=== PATIENT | male | born 1965 | race Hispanic/Latino ===

== ENCOUNTER 2017-03-16 19:49 | Emergency (ER) | payer SELFPAY ==
[2017-03-16 19:59] VITALS: BMI 23.0
[2017-03-16 20:00] VITALS: RESP 18; TEMP 101.5
[2017-03-16 21:37] LABS: BASO # 0.02 K/mm3 (0.0-2.0); BASO % 0.2 % (0.0-3.0); EOS # 0.3 (0.0-0.7); GRAN # 9.83 (1.4-6.5); GRAN % 78.7 % (50.0-68.0); HEMATOCRIT 37.4 % (42.0-52.0); LYMPH # 1.7 (1.2-3.4); LYMPH % 13.2 % (22.0-35.0); MEAN CELL VOLUME 91.4 fl (80.0-105.0); MEAN CORPUSCULAR HEMOGLOBIN 30.1 pg (25.0-35.0); MEAN CORPUSCULAR HGB CONC 32.9 g/dl (31.0-37.0); MEAN PLATELET VOLUME 9.7 fl (7.0-11.0); MONO # 0.7 (0.1-0.6); MONO % 5.9 % (1.0-6.0); RED CELL DISTRIBUTION WIDTH 14.5 % (11.5-14.5); VENOUS BLOOD GAS BASE EXCESS 6.1 mmol/L (0.0-2.0); VENOUS BLOOD PH 7.34 (7.32-7.43); WHITE BLOOD COUNT 12.5 10^3/ul (4.5-11.0)
[2017-03-16 21:47] LABS: ALB/GLOB RATIO 1.5 (1.1-1.8); ALKALINE PHOSPHATASE 77 U/L (38-126); ALT/SGPT 229 U/L (7-56); AST/SGOT 115 U/L (17-59); BILIRUBIN,TOTAL 0.7 mg/dL (0.2-1.3); BLOOD UREA NITROGEN 15 mg/dL (7-21); CALCIUM 9.3 mg/dL (8.4-10.5); CARBON DIOXIDE 33 mmol/L (21-33); CHLORIDE 101 mmol/L (95-110); GFR AFRICAN-AMERICAN > 60; GLUCOSE,RANDOM 91 mg/dL (70-110); MAGNESIUM 1.9 mg/dL (1.7-2.2); PHOSPHOROUS 3.4 mg/dL (2.5-4.5); POTASSIUM 4.8 mmol/L (3.6-5.0); SODIUM 138 mmol/L (132-148); TOTAL PROTEIN 6.5 g/dL (5.8-8.3)
[2017-03-16 22:00] LABS: TROPONIN I < 0.01 ng/mL
[2017-03-16 22:07] LABS: INR 1.2 (0.93-1.08); PARTIAL THROMBOPLASTIN TIME 31.1 Seconds (25.1-36.5)
--- NOTE | 2017-03-16 22:08 | ED PDOC ---
Arrival/HPI - General Chief Complaint: Chest Pain Time Seen by Provider: 03/16/17 20:09 Historian: Patient - History of Present Illness Narrative History of Present Illness (Text): 03/16/17 22:09 A 51 year old male, whose past medical history includes GERD, presents to the emergency department complaining of feeling hot, feverish and lightheaded an hour ago prior to arrival. Also reports burning sensation of lower sternal chest and notes feels similar to prior episode of GERD. Notes nausea and mild headache. Reports fever upon arrival to the emergency department. Denies recent travels, cough, sore throat, shortness of breath, vomiting, diarrhea, urinary symptoms or any other complaints at this time. Time/Duration: 1 hour Symptom Onset: Sudden Symptom Course: Unchanged Activities at Onset: Rest Context: Home Past Medical History - Provider Review Nursing Documentation Reviewed: Yes - Cardiac Hx Cardiac Disorders: No Hx Hypertension: No - Pulmonary Hx Asthma: Yes Hx Tuberculosis: No - Neurological HX Cerebrovascular Accident: No Hx Seizures: No - Hematological/Oncological Hx Cancer: No - Genitourinary/Gynecological Hx Sexually Transmitted Diseases: No - Psychiatric Hx Anxiety: Yes Hx Substance Use: Yes - Anesthesia Hx Anesthesia: No Family/Social History - Physician Review Nursing Documentation Reviewed: Yes Family/Social History: No Known Family HX Smoking Status: Light Smoker < 10 Cigarettes Daily Hx Alcohol Use: No Hx Substance Use: Yes Substance used: Heroin Allergies/Home Meds Allergies/Adverse Reactions: Allergies No Known Allergies Allergy (Verified 03/16/17 19:59) Home Medications: Home Meds Medication Instructions Recorded Confirmed No Known Home Med 03/16/17 03/16/17 Review of Systems - Physician Review All systems were reviewed & negative as marked: Yes - Review of Systems Constitutional: Fevers, Other (lightheadedness) ENT: absent: Sore Throat Respiratory: absent: SOB, Cough Cardiovascular: Other (burning sensation of lower sternal chest) Gastrointestinal: Nausea. absent: Diarrhea, Vomiting Genitourinary Male: absent: Dysuria, Frequency, Hematuria Neurological: Headache (mild) Physical Exam Vital Signs Reviewed: Yes Vital Signs Temp Pulse Resp BP Pulse Ox 03/16/17 22:28 74 18 102/67 97 03/16/17 21:20 101.5 F H 03/16/17 20:00 101.5 F H 72 18 108/70 93 L Temperature: Febrile Blood Pressure: Normal Pulse: Regular Respiratory Rate: Normal Appearance: Positive for: Well-Appearing, Non-Toxic, Comfortable Pain Distress: Mild Mental Status: Positive for: Alert and Oriented X 3 - Systems Exam Head: Present: Atraumatic, Normocephalic Pupils: Present: PERRL Extroacular Muscles: Present: EOMI Conjunctiva: Present: Normal Mouth: Present: Dry Neck: Present: Normal Range of Motion Respiratory/Chest: Present: Rhonchi (scattered). No: Respiratory Distress, Accessory Muscle Use Cardiovascular: Present: Regular Rate and Rhythm, Normal S1, S2. No: Murmurs Abdomen: Present: Normal Bowel Sounds. No: Tenderness, Distention, Peritoneal Signs Back: Present: Normal Inspection Upper Extremity: Present: Normal Inspection. No: Cyanosis, Edema Lower Extremity: Present: Normal Inspection. No: Edema Neurological: Present: GCS=15, CN II-XII Intact, Speech Normal, Motor Func Grossly Intact, Normal Sensory Function, Normal Cerebellar Funct, Gait Normal, Memory Normal, Normal 2Pt Descrimination Skin: Present: Warm, Dry, Normal Color. No: Rashes Psychiatric: Present: Alert, Oriented x 3, Normal Insight, Normal Concentration Medical Decision Making ED Course and Treatment: 03/16/17 22:05 Impression: A 51 year old male with fever, lightheadedness, nausea, headache and burning sensation of lower sternal chest. Of note, patient is noted to be febrile. Plan: -- EKG -- chest xray -- labs -- Urinalysis -- Tylenol -- Reassess and disposition Progress Notes: EKG: NSR at 98 bpm, (-) acute ST changes, as read by CHRYSTAL. CXR : NAD, as read by PA Labs : wbc 12.5, vbg lactate 0.9, trop (-), ua (-), LFTs is mildly elevated. Diagnostic results d/w the patient. On re-evaluation, patient is sitting up in bed comfortably in no acute distress, remains awake, alert and oriented x3, not toxic appearing, he is smiling and is ambulatory in the ER with a steady gait. Patient reports no headache, dizziness, chest pain or SOB at this time. Patient' s breathing is easy and unlabored, speaking in full sentences. On exam, lungs CTA, cardiac RRR, repeat neuro exam shows no focal findings. Patient states that he wishes to leave the ER AMA and is refusing any further treatment. Patient refuses further care, evaluation or treatment in the ER. Patient informed of the reasons for the following and planned treatment, which patient understands, however still refuses. Patient informed of the risk and benefits of treatment. Informed that the risk could include worsening of current conditions, undiagnosed conditions, disability or even . Patient understands the following risk and the benefits of treatment. Patient has the capacity to make decisions and still refuses treatment by RN, PA and ER MD. Patient encouraged to return to the ER at any time and to follow up with pmd. - Lab Interpretations Lab Results: 03/16/17 21:10 03/16/17 21:10 Lab Results 03/16/17 21:10: pO2 26 L, VBG pH 7.34, VBG pCO2 63.0 H, VBG HCO3 34.0 H, VBG Total CO2 35.9 H, VBG O2 Sat (Calc) 54.2, VBG Base Excess 6.1 H, VBG Potassium 4.5, Sodium 137.0, Chloride 103.0, Glucose 87, Lactate 0.9, FiO2 21.0, Venous Blood Potassium 4.5 03/16/17 21:10: Urine Color Yellow, Urine Appearance Clear, Urine pH 7.0, Ur Specific [place] 1.015, Urine Protein Negative, Urine Glucose (UA) Negative, Urine Ketones Negative, Urine Blood Negative, Urine Nitrate Negative, Urine Bilirubin Negative, Urine Urobilinogen 1.0 H, Ur Leukocyte Esterase Negative 03/16/17 21:10: PT 13.1 H, INR 1.20 H, APTT 31.1 03/16/17 21:10: Sodium 138, Chloride 101, Potassium 4.8, Carbon Dioxide 33, Anion Gap 9 L, BUN 15, Creatinine 0.8, Est GFR ( Amer) > 60, Est GFR (Non -Af Amer) > 60, Random Glucose 91, Calcium 9.3, Phosphorus 3.4, Magnesium 1.9, Total Bilirubin 0.7, AST 115 H D, ALT 229 H, Alkaline Phosphatase 77, Lactate Dehydrogenase 517, Total Creatine Kinase 152, Troponin I < 0.01, Total Protein 6.5, Albumin 3.9, Globulin 2.6, Albumin/Globulin Ratio 1.5 03/16/17 21:10: WBC 12.5 H, RBC 4.09, Hgb 12.3 L, Hct 37.4 L, MCV 91.4, MCH 30.1 , MCHC 32.9, RDW 14.5, Plt Count 164, MPV 9.7, Gran % 78.7 H, Lymph % (Auto) 13.2 L, [place] % (Auto) 5.9, Eos % (Auto) 2.0, Baso % (Auto) 0.2, Gran # 9.83 H, Lymph # 1.7, [place] # 0.7 H, Eos # 0.3, Baso # 0.02 I have reviewed the lab results: Yes - RAD Interpretation Radiology Orders: 03/16/17 20:10 CHEST TWO VIEWS (PA/LAT) [RAD] Stat - EKG Interpretation Interpreted by ED Physician: Yes Type: 12 lead EKG - Medication Orders Current Medication Orders: Discontinued Medications Acetaminophen (Tylenol 325mg Tab) 975 mg PO STAT STA Stop: 03/16/17 20:55 Last Admin: 03/16/17 21:20 Dose: 975 mg MAR Pain/Vitals Document 03/16/17 21:20 RD (Rec: 03/16/17 21:30 RD [id number]) Pain Reassessment Is This A Pain ReAssessment? No Sleep Is patient sleeping during reassessment? 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 - Scribe Statement The provider has reviewed the documentation as recorded by the Scribkg Duncan All medical record entries made by the Clara were at my direction and personally dictated by me. I have reviewed the chart and agree that the record accurately reflects my personal performance of the history, physical exam, medical decision making, and the department course for this patient. I have also personally directed, reviewed, and agree with the discharge instructions and disposition. Disposition/Present on Arrival - Present on Arrival Any Indicators Present on Arrival: No History of DVT/PE: No History of Uncontrolled Diabetes: No Urinary Catheter: No History of Decub. Ulcer: No History Surgical Site Infection Following: None - Disposition Have Diagnosis and Disposition been Completed?: Yes Diagnosis: Fever, Dizziness, Chest pain Disposition: AGAINST MEDICAL ADVICE Disposition Time: 22:15 Patient Plan: Other (Patient wishes to leave AMA) Condition: STABLE Discharge Instructions (ExitCare): Chest Pain (ED), Fever in Adults (ED), Dizziness (ED), Against Medical Advice (ED) Print Language: ALBANIAN Additional Instructions: Thank you for letting us take care of you today. You were treated for fever, dizziness, chest pain. The emergency medical care you received today was directed at your acute symptoms. If you were prescribed any medication, please fill it and take as directed. It may take several days for your symptoms to resolve. Return to the Emergency Department if you change your mind, your symptoms worsen, do not improve, or if you have any other problems. Please contact the clinic in 2 days for re-evaluation and follow up. Bring any paperwork you were given at discharge with you along with any medications you are taking to your follow up visit. Our treatment cannot replace ongoing medical care by a primary care provider (PCP) outside of the emergency department. Thank you for allowing the [facility] team to be part of your care today. Referrals: PCP,NO [Primary Care Provider] - Follow up with primary [facility] [place]] - Follow up with primary Forms: [employer] (Slovenian)
[2017-03-16 22:23] LABS: URINE BILIRUBIN NEGATIVE (NEGATIVE); URINE BLOOD NEGATIVE (NEGATIVE); URINE GLUCOSE (UA) NEGATIVE (NEGATIVE); URINE KETONE NEGATIVE (NEGATIVE); URINE LEUKOCYTE ESTERASE NEGATIVE Leu/uL (NEGATIVE); URINE PROTEIN NEGATIVE mg/dL (<30 mg/dL)
[2017-03-16 22:24] LABS: URINE APPEARANCE CLEAR (CLEAR); URINE COLOR YELLOW (YELLOW)
[2017-03-16 22:29] VITALS: BP 102/67; PULSE 74; O2SAT 97
--- NOTE | 2017-03-17 08:33 | RAD ---
HISTORY: pain COMPARISON: None available. TECHNIQUE: Chest PA and lateral FINDINGS: LUNGS: No focal consolidation. Please note that chest x-ray has limited sensitivity for the detection of pulmonary masses. PLEURA: No significant pleural effusion identified. No definite pneumothorax . CARDIOVASCULAR: Heart size appears within normal limits. OSSEOUS STRUCTURES: Degenerative changes of the spine. VISUALIZED UPPER ABDOMEN: Unremarkable. OTHER FINDINGS: None. IMPRESSION: No focal consolidation, significant pleural effusion, or definite pneumothorax identified.
--- NOTE | 2017-03-17 22:20 | CARD ---
APPROVED REPORT EKG Measurement Heart [id number] <Conclusion> Normal sinus rhythm Possible Left atrial enlargement Borderline ECG
== END 2017-03-16 22:28 | disposition left against medical advice (07) ==
LOC: ED 19:49
DX: R07.9 Chest pain, unspecified (principal); R50.9 Fever, unspecified; R42 Dizziness and giddiness; F17.210 Nicotine dependence, cigarettes, uncomplicated

== ENCOUNTER 2017-04-29 22:06 | Inpatient (IN) | payer MEDICAID, OTHER ==
[2017-04-29 22:07] VITALS: BMI 23.0
--- NOTE | 2017-04-29 22:47 | ED PDOC ---
Arrival/HPI <Kameron Spangler - Last Filed: 04/30/17 00:21> - General Historian: Patient - History of Present Illness Symptom Onset: Gradual Symptom Course: Unchanged Activities at Onset: Light Context: Home <Guerline Ross - Last Filed: 04/30/17 02:40> - General Chief Complaint: Med Refill Time Seen by Provider: 04/29/17 22:39 - History of Present Illness Narrative History of Present Illness (Text): 04/29/17 22:47 51 year old male smoker, whose past medical history includes IV heroin abuse and asthma, who presents to the Emergency department complaining of chest congestion. Patient states he has been experiencing cold-like symptoms with associated chest congestion, cough, and subjective fever for the past 6 days, for which he was seen at [facility] ER yesterday. Patient received nebulizer treatments and was prescribed Zithromax, which he has yet to fill because he could not afford it. Patient states he took Advil at home with no significant improvement. Patient also complaining of an area of erythema/swelling to the left antecubital fossa with associated discomfort for the past 3 days, worsening over the last 2 days. Patient notes he regularly injects heroin in the area and last injected heroin 2 days prior. Patient denies any chills, sore throat, abdominal pain, nausea, vomiting, back pain, neck pain, headache, dizziness, decreased range of motion in the extremity, weakness/numbness/tingling in the extremity, or any other complaints. (Guerline Ross) Past Medical History - Provider Review Nursing Documentation Reviewed: Yes - Infectious Disease Hx of Infectious Diseases: None - Cardiac Hx Hypertension: No - Pulmonary Hx Asthma: Yes - Neurological Hx Seizures: No - HEENT Hx HEENT Disorder: No - Renal Hx Renal Disorder: No - Endocrine/Metabolic Hx Endocrine Disorders: No - Hematological/Oncological Hx Cancer: No - Integumentary Hx Dermatological Disorder: No - Musculoskeletal/Rheumatological Hx Musculoskeletal Disorders: No - Gastrointestinal Hx Gastrointestinal Disorders: No - Genitourinary/Gynecological Hx Sexually Transmitted Diseases: No - Psychiatric Hx Anxiety: Yes Hx Depression: Yes Hx Substance Use: Yes - Anesthesia Hx Anesthesia: No <Guerline Ross - Last Filed: 04/30/17 02:40> Family/Social History - Physician Review Nursing Documentation Reviewed: Yes Family/Social History: Unknown Family HX Smoking Status: Light Smoker < 10 Cigarettes Daily Hx Alcohol Use: No Hx Substance Use: Yes Substance used: Heroin <Guerline Ross - Last Filed: 04/30/17 02:40> Allergies/Home Meds <Kameron Spangler - Last Filed: 04/30/17 00:21> <Guerline Ross - Last Filed: 04/30/17 02:40> Allergies/Adverse Reactions: Allergies No Known Allergies Allergy (Verified 04/29/17 22:36) Review of Systems - Physician Review All systems were reviewed & negative as marked: Yes - Review of Systems Constitutional: Fevers ENT: Sinus Congestion. absent: Sore Throat Respiratory: Cough, Other (+chest congestion). absent: SOB Cardiovascular: absent: Chest Pain, Palpitations Gastrointestinal: Normal. absent: Abdominal Pain, Nausea, Vomiting Genitourinary Male: absent: Dysuria, Frequency Musculoskeletal: Normal. absent: Back Pain, Neck Pain Skin: Cellulitis. absent: Pruritis Neurological: absent: Headache, Dizziness Psychiatric: Suicidal Ideation. absent: Anxiety, Depression <Guerline Ross - Last Filed: 04/30/17 02:40> Physical Exam Vital Signs Reviewed: Yes Temperature: Afebrile Blood Pressure: Normal Pulse: Regular Respiratory Rate: Normal Appearance: Positive for: Well-Appearing, Non-Toxic, Comfortable Pain Distress: None Mental Status: Positive for: Alert and Oriented X 3 - Systems Exam Head: Present: Atraumatic, Normocephalic Conjunctiva: Present: Normal Ears: Present: Normal, NORMAL TM, Normal Canal. No: Erythema, TM Bulging, Fluid , TM Perf Mouth: Present: Moist Mucous Membranes Pharnyx: Present: Normal. No: ERYTHEMA, EXUDATE, TONSILS ENLARGED, Peritonsilar Swelling, Uvular Deviation, Muffled/Hoarse Voice, Strider, Soft Palate/Uvular Edema Nose (External): Present: Atraumatic Nose (Internal): Present: Normal Inspection Neck: Present: Normal Range of Motion. No: Meningeal Signs, MIDLINE TENDERNESS , Paraspinal Tenderness Respiratory/Chest: Present: Clear to Auscultation, Good Air Exchange. No: Respiratory Distress, Accessory Muscle Use Cardiovascular: Present: Regular Rate and Rhythm, Normal S1, S2. No: Murmurs Abdomen: Present: Normal Bowel Sounds. No: Tenderness, Distention, Peritoneal Signs Back: Present: Normal Inspection Upper Extremity: Present: Normal ROM, NORMAL PULSES, Erythema (3 cm round, indurated area of erythema to left antecubital fossa with surrounding erythema, warmth, and tenderness), Neurovascularly Intact, Capillary Refill < 2s. No: Cyanosis, Edema Lower Extremity: Present: Normal Inspection. No: Edema Neurological: Present: GCS=15, Speech Normal Skin: Present: Warm, Dry, Normal Color. No: Rashes Psychiatric: Present: Alert, Oriented x 3 <Guerline Ross - Last Filed: 04/30/17 02:40> Vital Signs Temp Pulse Resp BP Pulse Ox 04/30/17 02:13 99.0 F 89 17 125/82 98 04/30/17 00:02 99.9 F H 04/29/17 22:35 90 21 120/71 97 Medical Decision Making <Kameron Spangler - Last Filed: 04/30/17 00:21> - EKG Interpretation Interpreted by ED Physician: Yes Type: 12 lead EKG <Guerline Ross - Last Filed: 04/30/17 02:40> ED Course and Treatment: 04/29/17 22:47 Impression: 51 year old male complaining of chest congestion, cough, and subjective fever x 6 days. Also complaining of area of redness/swelling to left antecubital fossa x3 days. Plan: -- EKG: nsr at 86b/m no st elevations, normal axis, normal intervals. -- CXR: ? RLL infiltrate -- CB: wbc; 11.7 -- CMP: wnl -- lactate; wnl cardiac iso -- Blood cultures pending -- Urinalysis: -- trop; wnl Prior Visits: Notes and results from previous visits were reviewed. On 04/28/2017, pt was seen at [facility] ER for productive cough with associated fever , nasal congestion, and shortness of breath. Received Duoneb treatments while in ER. Pt d/c home on Ventolin and Zithromax Progress Notes: vancomycin and zosyn IV pt with rll pna and cellulitis to left anticubital fossa. hx of IVDA. will admit to med/surg. case discussed with dr. hernandez in depth accepts admission. case discussed with resident. impression; cellulitis, PNA admit to med/surg (Guerline Ross) - Lab Interpretations Lab Results: 04/29/17 22:55 04/29/17 22:55 Lab Results 04/29/17 22:55: Urine Color Yellow, Urine Appearance Clear, Urine pH 6.5, Ur Specific [place] 1.020, Urine Protein Negative, Urine Glucose (UA) Negative, Urine Ketones Trace H, Urine Blood Negative, Urine Nitrate Negative, Urine Bilirubin Negative, Urine Urobilinogen 2.0 H, Ur Leukocyte Esterase Negative 04/29/17 22:55: WBC 11.7 H, RBC 3.76, Hgb 11.6 L, Hct 34.0 L, MCV 90.4, MCH 30.9 , MCHC 34.1, RDW 13.9, Plt Count 208, MPV 9.0, Gran % 69.6 H, Lymph % (Auto) 16.7 L, [place] % (Auto) 12.5 H, Eos % (Auto) 1.0 L, Baso % (Auto) 0.2, Gran # 8.13 H, Lymph # 2.0, [place] # 1.5 H, Eos # 0.1, Baso # 0.02 04/29/17 22:55: Sodium 138, Chloride 101, Potassium 3.9, Carbon Dioxide 28, Anion Gap 14, BUN 13, Creatinine 0.7 L, Est GFR ( Amer) > 60, Est GFR ( Non-Af Amer) > 60, Random Glucose 110, Calcium 9.3, Total Bilirubin 0.6, AST 38 , ALT 51, Alkaline Phosphatase 90, Lactate Dehydrogenase 396, Total Creatine Kinase 103, Troponin I < 0.01, Total Protein 7.5, Albumin 3.9, Globulin 3.7, Albumin/Globulin Ratio 1.0 L 04/29/17 22:55: pO2 35, VBG pH 7.42, VBG pCO2 46.0, VBG HCO3 29.8 H, VBG Total CO2 31.2 H, VBG O2 Sat (Calc) 81.7 H, VBG Base Excess 4.5 H, VBG Potassium 4.0, Sodium 138.0, Chloride 103.0, Glucose 111 H, Lactate 1.7, FiO2 21.0, Venous Blood Potassium 4.0 - RAD Interpretation Radiology Orders: 04/29/17 23:02 CHEST PORTABLE [RAD] Stat 04/30/17 00:11 ELBOW LEFT 3 VIEWS ROUTINE [RAD] Stat - Medication Orders Current Medication Orders: Acetaminophen (Tylenol 325mg Tab) 650 mg PO Q4H PRN PRN Reason: Fever >100.4 F Acetaminophen (Tylenol 325mg Tab) 650 mg PO Q4 PRN PRN Reason: Pain, Mild (1-3) Albuterol/Ipratropium (Duoneb 3 Mg/0.5 Mg (3 Ml) Ud) 3 ml IH [id number] PRN PRN Reason: Shortness of Breath Famotidine (Pepcid) 20 mg IVP DAILY ARCELIA Heparin Sodium (Porcine) (Heparin) 5,000 units SC Q8 ARCELIA PRN Reason: Protocol Sodium Chloride (Sodium Chloride 0.9%) 1,000 mls @ 100 mls/hr IV .Q10H ARCELIA Last Admin: 04/30/17 01:38 Dose: 100 mls/hr eMAR Start Stop Document 04/30/17 01:38 IT (Rec: 04/30/17 01:38 IT [id number]) Intravenous Solution Start Date 04/30/17 Start Time 01:38 Vancomycin HCl (Vancomycin 1gm) 1 gm in 250 mls @ 167 mls/hr IVPB Q12H ARCELIA PRN Reason: Protocol Piperacillin Sod/Tazobactam Sod (Zosyn 3.375 In Ns 100ml) 100 mls @ 200 mls/hr IVPB Q6 ARCELIA PRN Reason: Protocol Stop: 04/30/17 12:29 Nicotine (Nicoderm Cq) 1 patch TD DAILY PRN PRN Reason: URGE TO SMOKE Tramadol HCl (Ultram) 50 mg PO Q8H PRN PRN Reason: Pain, severe (8-10) Last Admin: 04/30/17 01:38 Dose: 50 mg MAR Pain Assessment Document 04/30/17 01:38 IT (Rec: 04/30/17 01:38 IT [id number]) Pain Reassessment Is this a pain reassessment? No Sleep Is patient sleeping during reassessment? No Presence of Pain Presence of Pain Yes Discontinued Medications Vancomycin HCl (Vancomycin 1gm) 1 gm in 250 mls @ 167 mls/hr IVPB STAT STA PRN Reason: Protocol Stop: 04/30/17 01:39 Last Admin: 04/30/17 01:11 Dose: 167 mls/hr eMAR Start Stop Document 04/30/17 01:11 IT (Rec: 04/30/17 01:11 IT [id number]) Intravenous Solution Start Date 04/30/17 Start Time 01:11 End Date 04/30/17 End time 02:40 Total Infusion Time 89 Piperacillin Sod/Tazobactam Sod (Zosyn 3.375 In Ns 100ml) 100 mls @ 200 mls/hr IVPB STAT STA PRN Reason: Protocol Stop: 04/30/17 00:39 Last Admin: 04/30/17 00:35 Dose: 200 mls/hr eMAR Start Stop Document 04/30/17 00:35 IT (Rec: 04/30/17 00:35 IT [id number]) Intravenous Solution Start Date 04/30/17 Start Time 00:35 End Date 04/30/17 - PA / RECREATION 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 MD/ has examined the patient and agrees with the treatment plan. <Kameron Spangler - Last Filed: 04/30/17 00:21> - Scribe Statement The provider has reviewed the documentation as recorded by the Scribe <Guerline Ross - Last Filed: 04/30/17 02:40> - Scribe Statement Irlanda Mahoney All medical record entries made by the Scribe were at my direction and personally dictated by me. I have reviewed the chart and agree that the record accurately reflects my personal performance of the history, physical exam, medical decision making, and the department course for this patient. I have also personally directed, reviewed, and agree with the discharge instructions and disposition. (Guerline Ross) Disposition/Present on Arrival <Kameron Spangler - Last Filed: 04/30/17 00:21> - Present on Arrival Any Indicators Present on Arrival: No History of DVT/PE: No History of Uncontrolled Diabetes: No Urinary Catheter: No History of Decub. Ulcer: No History Surgical Site Infection Following: None - Disposition Have Diagnosis and Disposition been Completed?: Yes Disposition Time: 23:25 Patient Plan: Admission <Guerline Ross - Last Filed: 04/30/17 02:40> - Disposition Diagnosis: Pneumonia, Cellulitis Disposition: HOSPITALIZED Patient Problems: Current Active Problems Problem Status Onset Cellulitis Acute Pneumonia Acute Condition: FAIR
[2017-04-29 23:28] LABS: VENOUS BLOOD GAS BASE EXCESS 4.5 mmol/L (0.0-2.0); VENOUS BLOOD PH 7.42 (7.32-7.43)
[2017-04-29 23:37] LABS: PH,URINE 6.5 (4.7-8.0); URINE BILIRUBIN NEGATIVE (NEGATIVE); URINE BLOOD NEGATIVE (NEGATIVE); URINE GLUCOSE (UA) NEGATIVE (NEGATIVE); URINE KETONE TRACE mg/dL (NEGATIVE); URINE LEUKOCYTE ESTERASE NEGATIVE Leu/uL (NEGATIVE); URINE PROTEIN NEGATIVE mg/dL (<30 mg/dL)
[2017-04-29 23:39] LABS: ALKALINE PHOSPHATASE 90 U/L (38-126); ALT/SGPT 51 U/L (7-56); AST/SGOT 38 U/L (17-59); BILIRUBIN,TOTAL 0.6 mg/dL (0.2-1.3); BLOOD UREA NITROGEN 13 mg/dL (7-21); CALCIUM 9.3 mg/dL (8.4-10.5); CARBON DIOXIDE 28 mmol/L (21-33); CHLORIDE 101 mmol/L (98-107); GFR AFRICAN-AMERICAN > 60; GLUCOSE,RANDOM 110 mg/dL (70-110); POTASSIUM 3.9 mmol/L (3.6-5.0); SODIUM 138 mmol/L (132-148); TOTAL PROTEIN 7.5 g/dL (5.8-8.3); URINE APPEARANCE CLEAR (CLEAR); URINE COLOR YELLOW (YELLOW)
[2017-04-29 23:50] LABS: TROPONIN I < 0.01 ng/mL
[2017-04-30 00:08] LABS: BASO # 0.02 K/mm3 (0.0-2.0); BASO % 0.2 % (0.0-3.0); EOS # 0.1 (0.0-0.7); GRAN # 8.13 (1.4-6.5); GRAN % 69.6 % (50.0-68.0); LYMPH % 16.7 % (22.0-35.0); MEAN CELL VOLUME 90.4 fl (80.0-105.0); MEAN CORPUSCULAR HEMOGLOBIN 30.9 pg (25.0-35.0); MEAN CORPUSCULAR HGB CONC 34.1 g/dl (31.0-37.0); MONO # 1.5 (0.1-0.6); MONO % 12.5 % (1.0-6.0); RED CELL DISTRIBUTION WIDTH 13.9 % (11.5-14.5); WHITE BLOOD COUNT 11.7 10^3/ul (4.5-11.0)
[2017-04-30] MEDS ORDERED: Piperacillin/Tazobact 3.375 gm 100 ML IVPB STA (00:10)
[2017-04-30] MEDS ORDERED: Vancomycin 1gm in NS 250ml 1 GM/250 ML BAG IVPB STA (00:10)
--- NOTE | 2017-04-30 00:39 | CP.PCM.HP ---
<Tai Mcdermott - Last Filed: 04/30/17 01:34> History of Present Illness - History of Present Illness History of Present Illness: CC: chest congestion, cough Subjective: HPI: Patient is a 51 year old male with past medical history of IV heroin abuse and asthma who presents to the emergency department for evaluation and treatment of chest congestion, cough with yellow sputum production, and subjective fevers which began 6 days ago. Patient denies specific provoking events. Denies recent travel and sick contacts. Patient was seen at [facility] ER where he was treated with nebulizer treatments and Zithromax. Patient did not fill the rx due to financial reasons. Patient states he took Advil at home with no significant improvement. Also admits to erythema/swelling to the left antecubital fossa with associated sharp localized pain for the past 3 days. Effected region was worsening over the last 2 days. Admits to regularly injects heroin in the area. Last injected heroin 4 days ago. Admits to SOB during coughing spells. Patient denies intractable headache, chills, dizziness, blurry vision, ringing in the ears, chest pain, abdominal pain, nausea, vomiting, diarrhea, constipation, and urinary symptoms. ROS: 12 point review of systems negative except as indicated in HPI PMHx: IVDA and asthma PSHx: denies Family Hx: denies Social Hx: denies ETOH use, smokes 4-5 cigarretes per day for 20 years, admits to illicit drug use- IV heroin for the 1.5 months Medications: Please see medication reconciliation PMD: not established Pharmacy: not established Physical Examination: - Constitutional Appears: Non-toxic, No Acute Distress - Head Exam Head Exam: atraumatic, normocephalic - Eye Exam Eye Exam: Normal appearance, PERRL. absent: Scleral icterus - ENT Exam ENT Exam: Mucous Membranes Moist - Neck Exam Neck exam: Normal Inspection - Respiratory Exam Respiratory Exam: bibasilar crackles, Normal Breathing Pattern - Cardiovascular Exam Cardiovascular Exam: +S1, +S2. absent: Gallop, JVD - GI/Abdominal Exam GI & Abdominal Exam: Normal Bowel Sounds, absent: Distended, Guarding, Pulsatile Mass, Rebound, Rigid - Extremities Exam Extremities exam: Negative for: calf tenderness - Neurological Exam Neurological exam: Patient is awake, alert, responds to verbal stimuli, answers questions appropriately, follows commands, and moves extremities past midline - Psychiatric Exam Psychiatric exam: Normal Affect, Normal Mood - Skin Skin Exam: Left Antecubital region- erythema/swelling, no fluctuence appreciated Assessment and Plan: Patient is a 51 year old male with past medical history of IV heroin abuse and asthma who was admitted for evaluation and treatment of chest congestion, cough , and subjective fevers. Chest Congestion, Productive Cough - Pneumonia vs Viral URI - CXR reviewed and appreciated- possible infiltrate noted RLL as per ED, not definitive official report pending - vancomycin and zosyn given in ED, continue with abx regiment - ID consulted as per attending- appreciate recommendations - does not meet SIRs criteria - blood cultures and sputum culture pending - atypicals pending - IVF @ 100 - duonebs q4h prn SOB Cellulitis - pain control- tylenol mild and tramadol severe - demarcate effected area - X-ray of Left AC pending at time of admission- await results - antibiotics- c/w vancomycin and zosyn - IVF @ 100 Anemia - Hgb reviewed, trended, and appreciated - monitor closely via CBC - FOBT pending Tobacco/Polysubstance Abuse - nicotine patch offered - smoking cessation advised - patient education provided on dangers of tobacco use/heroin abuse - HIV and hepatitis panels pending Prophylaxis - DVT ppx- subq heparin as per noy score - GI ppx- famotidine Patient case discussed with and plan approved by attending physician. Present on Admission - Present on Admission Any Indicators Present on Admission: No Past Patient History - Infectious Disease Hx of Infectious Diseases: None - Past Social History Smoking Status: Light Smoker < 10 Cigarettes Daily - CARDIAC Hx Hypertension: No - PULMONARY Hx Asthma: Yes - NEUROLOGICAL Hx Seizures: No - HEENT Hx HEENT Problems: No - RENAL Hx Chronic Kidney Disease: No - ENDOCRINE/METABOLIC Hx Endocrine Disorders: No - HEMATOLOGICAL/ONCOLOGICAL Hx Cancer: No - INTEGUMENTARY Hx Dermatological Problems: No - MUSCULOSKELETAL/RHEUMATOLOGICAL Hx Musculoskeletal Disorders: No - GASTROINTESTINAL Hx Gastrointestinal Disorders: No - GENITOURINARY/GYNECOLOGICAL Hx Sexually Transmitted Disorders: No - PSYCHIATRIC Hx Anxiety: Yes Hx Depression: Yes Hx Substance Use: Yes - SURGICAL HISTORY Hx Surgeries: No - ANESTHESIA Hx Anesthesia: No Meds Allergies/Adverse Reactions: Allergies Allergy/AdvReac Type Severity Reaction Status Date / Time No Known Allergies Allergy Verified 04/29/17 22:36 Results - Vital Signs Recent Vital Signs: Last Vital Signs Temp 99.9 F H 04/30/17 00:02 Pulse 90 04/29/17 22:35 Resp 21 04/29/17 22:35 BP 120/71 04/29/17 22:35 Pulse Ox 97 04/29/17 22:35 - Labs Result Diagrams: 04/29/17 22:55 04/29/17 22:55 Labs: Laboratory Results - last 24 hr 04/29/17 04/29/17 04/29/17 22:55 22:55 22:55 WBC 11.7 H RBC 3.76 Hgb 11.6 L Hct 34.0 L MCV 90.4 MCH 30.9 MCHC 34.1 RDW 13.9 Plt Count 208 MPV 9.0 Gran % 69.6 H Lymph % (Auto) 16.7 L [place] % (Auto) 12.5 H Eos % (Auto) 1.0 L Baso % (Auto) 0.2 Gran # 8.13 H Lymph # 2.0 [place] # 1.5 H Eos # 0.1 Baso # 0.02 pO2 35 VBG pH 7.42 VBG pCO2 46.0 VBG HCO3 29.8 H VBG Total CO2 31.2 H VBG O2 Sat (Calc) 81.7 H VBG Base Excess 4.5 H VBG Potassium 4.0 Sodium 138.0 138 Chloride 103.0 101 Glucose 111 H Lactate 1.7 FiO2 21.0 Potassium 3.9 Carbon Dioxide 28 Anion Gap 14 BUN 13 Creatinine 0.7 L Est GFR ( Amer) > 60 Est GFR (Non-Af Amer) > 60 Random Glucose 110 Calcium 9.3 Total Bilirubin 0.6 AST 38 ALT 51 Alkaline Phosphatase 90 Lactate Dehydrogenase 396 Total Creatine Kinase 103 Troponin I < 0.01 Total Protein 7.5 Albumin 3.9 Globulin 3.7 Albumin/Globulin Ratio 1.0 L Venous Blood Potassium 4.0 Urine Color Urine Appearance Urine pH Ur Specific [place] Urine Protein Urine Glucose (UA) Urine Ketones Urine Blood Urine Nitrate Urine Bilirubin Urine Urobilinogen Ur Leukocyte Esterase 04/29/17 22:55 WBC RBC Hgb Hct MCV MCH MCHC RDW Plt Count MPV Gran % Lymph % (Auto) [place] % (Auto) Eos % (Auto) Baso % (Auto) Gran # Lymph # [place] # Eos # Baso # pO2 VBG pH VBG pCO2 VBG HCO3 VBG Total CO2 VBG O2 Sat (Calc) VBG Base Excess VBG Potassium Sodium Chloride Glucose Lactate FiO2 Potassium Carbon Dioxide Anion Gap BUN Creatinine Est GFR ( Amer) Est GFR (Non-Af Amer) Random Glucose Calcium Total Bilirubin AST ALT Alkaline Phosphatase Lactate Dehydrogenase Total Creatine Kinase Troponin I Total Protein Albumin Globulin Albumin/Globulin Ratio Venous Blood Potassium Urine Color Yellow Urine Appearance Clear Urine pH 6.5 Ur Specific [place] 1.020 Urine Protein Negative Urine Glucose (UA) Negative Urine Ketones Trace H Urine Blood Negative Urine Nitrate Negative Urine Bilirubin Negative Urine Urobilinogen 2.0 H Ur Leukocyte Esterase Negative <Tricia Hinton - Last Filed: 04/30/17 03:45> Results - Vital Signs Recent Vital Signs: Last Vital Signs Temp 99.0 F 04/30/17 02:13 Pulse 89 04/30/17 02:13 Resp 12 04/30/17 02:21 BP 125/82 04/30/17 02:13 Pulse Ox 98 04/30/17 02:13 - Labs Result Diagrams: 04/29/17 22:55 04/29/17 22:55 Labs: Laboratory Results - last 24 hr 04/30/17 01:10 Triglycerides 96 Cholesterol 123 L LDL Cholesterol Direct 74 HDL Cholesterol 26 L Attending/Attestation - Attestation I have personally seen and examined this patient.: Yes I have fully participated in the care of the patient.: Yes I have reviewed all pertinent clinical information: Yes Notes (Text): 04/30/17 03:44 Patient was seen when he was in [id number]. Agree with history , physical examination, assessment and plan.
[2017-04-30] MEDS: Sodium Chloride 0.9% 1,000 ML IV SCH ×2 (01:38→16:20)
[2017-04-30 01:48] LABS: CHOLESTEROL 123 mg/dL (130-200)
[2017-04-30] MEDS: Piperacillin/Tazobact 3.375 gm 100 ML IVPB SCH ×2 (06:43→11:01)
[2017-04-30 07:53] LABS: BASO # 0.02 K/mm3 (0.0-2.0); BASO % 0.2 % (0.0-3.0); EOS # 0.1 (0.0-0.7); EOS % 1.1 % (1.5-5.0); GRAN # 8.02 (1.4-6.5); GRAN % 71.4 % (50.0-68.0); LYMPH # 1.8 (1.2-3.4); LYMPH % 16.2 % (22.0-35.0); MEAN CELL VOLUME 90.2 fl (80.0-105.0); MEAN CORPUSCULAR HGB CONC 34.4 g/dl (31.0-37.0); MONO # 1.3 (0.1-0.6); MONO % 11.1 % (1.0-6.0); RED CELL DISTRIBUTION WIDTH 13.8 % (11.5-14.5); WHITE BLOOD COUNT 11.2 10^3/ul (4.5-11.0)
[2017-04-30 08:16] LABS: ALB/GLOB RATIO 0.9 (1.1-1.8); ALKALINE PHOSPHATASE 89 U/L (38-126); ALT/SGPT 53 U/L (7-56); AST/SGOT 35 U/L (17-59); BILIRUBIN,TOTAL 0.3 mg/dL (0.2-1.3); BLOOD UREA NITROGEN 10 mg/dL (7-21); CALCIUM 8.5 mg/dL (8.4-10.5); CARBON DIOXIDE 25 mmol/L (21-33); CHLORIDE 104 mmol/L (98-107); GFR AFRICAN-AMERICAN > 60; GLUCOSE,RANDOM 118 mg/dL (70-110); POTASSIUM 3.8 mmol/L (3.6-5.0); SODIUM 138 mmol/L (132-148); TOTAL PROTEIN 6.6 g/dL (5.8-8.3)
--- NOTE | 2017-04-30 09:00 | RAD ---
HISTORY: cough/fever COMPARISON: 03/16/2017 FINDINGS: LUNGS: There is a patchy infiltrate at the right lung base suspicious for pneumonia PLEURA: No significant pleural effusion identified, no pneumothorax apparent. CARDIOVASCULAR: Normal. OSSEOUS STRUCTURES: No significant abnormalities. VISUALIZED UPPER ABDOMEN: Normal. OTHER FINDINGS: None. IMPRESSION: There is a patchy infiltrate at the right lung base suspicious for pneumonia
--- NOTE | 2017-04-30 09:01 | RAD ---
PROCEDURE: Radiographs of the left elbow. HISTORY: left anticubital fossa pain/swelling COMPARISON: No prior. FINDINGS: BONES: Normal. No fracture. JOINTS: Normal. No osteoarthritis. SOFT TISSUES: Normal. JOINT EFFUSION: None. OTHER FINDINGS: None IMPRESSION: Unremarkable radiographs of the left elbow.
[2017-04-30] MEDS: Vancomycin 1gm in NS 250ml 1 GM/250 ML BAG IVPB SCH (11:01)
--- NOTE | 2017-04-30 11:04 | CP.PCM.CON ---
<Raf Salgado - Last Filed: 04/30/17 11:54> History of Present Illness - History of Present Illness History of Present Illness: General Surgery Consult Note for Dr. Marshall Reason for consult: Cellulitis with suspected abscess 51 M with past medical history of IV heroin abuse and asthma who presents with subjective fevers and Left arm pain which he has had for 3 days. He states sudden onset and has progressively had gotten worse. Patient has never experienced this in the past. He states that he was using IV heroin in the left arm. Last injected heroin 4 days ago. The next day he noticed erythema and edema to the left antecubital fossa. He admtis to regularly injecting heroin into the affected area. He rates pain as severe. He describes pain as constant and sharp localized to left antecubital fossa. Movement and palpation exacerbates his symptoms while nothing specifically alleviates it. He is asking for more pain medication. Admits to cough. Patient denies headache, chills, chest pain, SOB, palpitations, abdominal pain, nausea, vomiting, diarrhea, constipation, and incontinence. PMD: Denies PMH: IVDA, asthma Meds: As per EMR Allergy: NKDA PSH: denies FH: denies Social: denies ETOH use, smokes 4-5 cigarettes per day for last 20 years, admits to IV heroin use Review of Systems - Review of Systems All systems: reviewed and no additional remarkable complaints except (as per HPI ) - Constitutional Constitutional: Fever. absent: Chills, Weakness - EENT Eyes: absent: Blurred Vision, Change in Vision, Sees Flashes Nose/Mouth/Throat: absent: Nasal Congestion, Nasal Obstruction, Post Nasal Drip , Dysphagia - Cardiovascular Cardiovascular: absent: Chest Pain, Chest Pain at Rest, Chest Pain with Activity , Dyspnea - Respiratory Respiratory: Cough. absent: Dyspnea, Hemoptysis, Dyspnea on Exertion, Wheezing - Gastrointestinal Gastrointestinal: absent: Abdominal Pain, Melena, Nausea, Vomiting - Genitourinary Genitourinary: absent: Change in Urinary Stream, Difficulty Urinating, Dysuria, Urinary Incontinence - Musculoskeletal Musculoskeletal: Other (left arm edema and erythema, tenderness) - Integumentary Integumentary: Changing Lesions, New Lesions - Neurological Neurological: absent: Dizziness, Numbness, Tingling - Psychiatric Psychiatric: absent: Homicidal Ideation, Suicidal Ideation - Endocrine Endocrine: absent: Fatigue, Palpitations, Polydipsia, Polyphagia, Polyuria - Hematologic/Lymphatic Hematologic: absent: Easy Bleeding, Easy Bruising, Lymphadenopathy Past Patient History - Infectious Disease Hx of Infectious Diseases: None - Past Social History Smoking Status: Light Smoker < 10 Cigarettes Daily - CARDIAC Hx Hypertension: No - PULMONARY Hx Asthma: Yes - NEUROLOGICAL Hx Seizures: No - HEENT Hx HEENT Problems: No - RENAL Hx Chronic Kidney Disease: No - ENDOCRINE/METABOLIC Hx Endocrine Disorders: No - HEMATOLOGICAL/ONCOLOGICAL Hx Cancer: No - INTEGUMENTARY Hx Dermatological Problems: No - MUSCULOSKELETAL/RHEUMATOLOGICAL Hx Musculoskeletal Disorders: No - GASTROINTESTINAL Hx Gastrointestinal Disorders: No - GENITOURINARY/GYNECOLOGICAL Hx Sexually Transmitted Disorders: No - PSYCHIATRIC Hx Anxiety: Yes Hx Depression: Yes Hx Substance Use: Yes - SURGICAL HISTORY Hx Surgeries: No - ANESTHESIA Hx Anesthesia: No Meds Allergies/Adverse Reactions: Allergies Allergy/AdvReac Type Severity Reaction Status Date / Time No Known Allergies Allergy Verified 04/29/17 22:36 - Medications Medications: Current Medications Acetaminophen (Tylenol 325mg Tab) 650 mg PO Q4H PRN PRN Reason: Fever >100.4 F Acetaminophen (Tylenol 325mg Tab) 650 mg PO Q4 PRN PRN Reason: Pain, Mild (1-3) Albuterol/Ipratropium (Duoneb 3 Mg/0.5 Mg (3 Ml) Ud) 3 ml IH [id number] PRN PRN Reason: Shortness of Breath Famotidine (Pepcid) 20 mg IVP DAILY [facility] Last Admin: 04/30/17 09:13 Dose: 20 mg Heparin Sodium (Porcine) (Heparin) 5,000 units SC Q8 ARCELIA PRN Reason: Protocol Last Admin: 04/30/17 06:43 Dose: 5,000 units Sodium Chloride (Sodium Chloride 0.9%) 1,000 mls @ 100 mls/hr IV .Q10H ARCELIA Last Admin: 04/30/17 01:38 Dose: 100 mls/hr Vancomycin HCl (Vancomycin 1gm) 1 gm in 250 mls @ 167 mls/hr IVPB Q12H ARCELIA PRN Reason: Protocol Piperacillin Sod/Tazobactam Sod (Zosyn 3.375 In Ns 100ml) 100 mls @ 200 mls/hr IVPB Q6 ARCELIA PRN Reason: Protocol Stop: 04/30/17 12:29 Last Admin: 04/30/17 06:43 Dose: 200 mls/hr Nicotine (Nicoderm Cq) 1 patch TD DAILY PRN PRN Reason: URGE TO SMOKE Last Admin: 04/30/17 09:13 Dose: 1 patch Tramadol HCl (Ultram) 50 mg PO Q8H PRN PRN Reason: Pain, severe (8-10) Last Admin: 04/30/17 01:38 Dose: 50 mg Physical Exam - Constitutional Appears: No Acute Distress - Head Exam Head Exam: ATRAUMATIC, NORMOCEPHALIC - Eye Exam Eye Exam: EOMI, Normal appearance Pupil Exam: PERRL - ENT Exam ENT Exam: Mucous Membranes Moist - Respiratory Exam Respiratory Exam: NORMAL BREATHING PATTERN - Cardiovascular Exam Cardiovascular Exam: REGULAR RHYTHM - GI/Abdominal Exam GI & Abdominal Exam: Soft. absent: Distended, Tenderness - Extremities Exam Extremities exam: Positive for: normal capillary refill, pedal pulses present Additional comments: Left Antecubital fossa has induration, erythema, and edema with no fluctuence - tender to palpation, pain with passive and active ROM - Back Exam Back exam: absent: CVA tenderness (L), CVA tenderness (R) - Neurological Exam Neurological exam: Alert, CN II-XII Intact, Oriented x3 - Psychiatric Exam Psychiatric exam: Normal Affect, Normal Mood - Skin Skin Exam: Dry, Intact, Normal Color, Warm Results - Vital Signs Recent Vital Signs: Last Vital Signs Temp 100 F H 04/30/17 08:27 Pulse 77 04/30/17 08:27 Resp 20 04/30/17 08:27 BP 131/84 04/30/17 08:27 Pulse Ox 95 04/30/17 08:27 - Labs Result Diagrams: 04/30/17 05:00 04/30/17 07:30 Labs: Laboratory Results - last 24 hr 04/30/17 04/30/17 04/30/17 01:10 05:00 07:30 WBC 11.2 H RBC 3.77 Hgb 11.7 L Hct 34.0 L MCV 90.2 MCH 31.0 MCHC 34.4 RDW 13.8 Plt Count 213 MPV 9.0 Gran % 71.4 H Lymph % (Auto) 16.2 L [place] % (Auto) 11.1 H Eos % (Auto) 1.1 L Baso % (Auto) 0.2 Gran # 8.02 H Lymph # 1.8 Cross # 1.3 H Eos # 0.1 Baso # 0.02 Sodium 138 Potassium 3.8 Chloride 104 Carbon Dioxide 25 Anion Gap 12 BUN 10 Creatinine 0.6 L Est GFR ( Amer) > 60 Est GFR (Non-Af Amer) > 60 Random Glucose 118 H Calcium 8.5 Total Bilirubin 0.3 AST 35 ALT 53 Alkaline Phosphatase 89 Total Protein 6.6 Albumin 3.2 Globulin 3.4 Albumin/Globulin Ratio 0.9 L Triglycerides 96 Cholesterol 123 L LDL Cholesterol Direct 74 HDL Cholesterol 26 L Assessment & Plan - Assessment and Plan (Free Text) Assessment: 51 M with PMH of IVDA abuse presents for left antecubital fossa cellulitis and suspected abscess Plan: -Continue IV antibiotics -Non-opiod analgesics PRN -Warm compresses -No surgical intervention at this current time -Discussed with Dr. Joanna Salgado PGY1 - Date & Time Date: 04/30/17 Time: 11:00 <Cirilo Marshall - Last Filed: 05/01/17 14:21> Meds - Medications Medications: Current Medications Acetaminophen (Tylenol 325mg Tab) 650 mg PO Q4H PRN PRN Reason: Fever >100.4 F Last Admin: 04/30/17 15:43 Dose: 650 mg Acetaminophen (Tylenol 325mg Tab) 650 mg PO Q4 PRN PRN Reason: Pain, Mild (1-3) Albuterol/Ipratropium (Duoneb 3 Mg/0.5 Mg (3 Ml) Ud) 3 ml IH [id number] PRN PRN Reason: Shortness of Breath Last Admin: 05/01/17 13:52 Dose: 3 ml Famotidine (Pepcid) 20 mg PO DAILY [facility] Guaifenesin (Robitussin) 100 mg PO Q4H PRN PRN Reason: Cough Last Admin: 05/01/17 04:21 Dose: 100 mg Heparin Sodium (Porcine) (Heparin) 5,000 units SC Q8 ARCELIA PRN Reason: Protocol Last Admin: 05/01/17 06:17 Dose: Not Given Sodium Chloride (Sodium Chloride 0.9%) 1,000 mls @ 100 mls/hr IV .Q10H [facility] Last Admin: 05/01/17 04:16 Dose: 100 mls/hr Vancomycin HCl (Vancomycin 1gm) 1 gm in 250 mls @ 167 mls/hr IVPB Q12H ARCELIA PRN Reason: Protocol Last Admin: 05/01/17 13:00 Dose: 167 mls/hr Piperacillin Sod/Tazobactam Sod (Zosyn 3.375 In Ns 100ml) 100 mls @ 200 mls/hr IVPB Q6 ARCELIA PRN Reason: Protocol Last Admin: 05/01/17 12:21 Dose: 200 mls/hr Nicotine (Nicoderm Cq) 1 patch TD DAILY PRN PRN Reason: URGE TO SMOKE Last Admin: 04/30/17 09:13 Dose: 1 patch Tramadol HCl (Ultram) 50 mg PO Q8H PRN PRN Reason: Pain, severe (8-10) Last Admin: 05/01/17 04:14 Dose: 50 mg Results - Vital Signs Recent Vital Signs: Last Vital Signs Temp 98.8 F 05/01/17 07:30 Pulse 88 05/01/17 07:30 Resp 20 05/01/17 07:30 BP 128/70 05/01/17 07:30 Pulse Ox 96 05/01/17 07:30 - Labs Result Diagrams: 05/01/17 06:30 05/01/17 06:30 Labs: Laboratory Results - last 24 hr 04/30/17 05/01/17 05/01/17 07:30 06:30 06:30 WBC 11.3 H RBC 4.04 Hgb 12.1 L Hct 36.1 L MCV 89.4 MCH 30.0 MCHC 33.5 RDW 13.7 Plt Count 227 MPV 9.0 Gran % 80.4 H Lymph % (Auto) 11.0 L [place] % (Auto) 8.1 H Eos % (Auto) 0.4 L Baso % (Auto) 0.1 Gran # 9.05 H Lymph # 1.2 Cross # 0.9 H Eos # 0.0 Baso # 0.01 Sodium 142 Potassium 4.0 Chloride 109 H Carbon Dioxide 24 Anion Gap 13 BUN 8 Creatinine 0.6 L Est GFR ( Amer) > 60 Est GFR (Non-Af Amer) > 60 Random Glucose 113 H Calcium 8.8 Total Bilirubin 0.7 AST 56 ALT 70 H Alkaline Phosphatase 89 Total Protein 6.9 Albumin 3.3 Globulin 3.6 Albumin/Globulin Ratio 0.9 L Hepatitis C Antibody Reactive Assessment & Plan - Assessment and Plan (Free Text) Plan: Patient was seen, evaluated and examined by me. I agree with the assessment and plan as per the resident's note. Also, will evaluate patient's arm with ultrasound to rule out a deep seated abscess.
[2017-04-30] MEDS: Albuterol-Ipratrop 3 mg / 0.5 (3 ml) UD IH PRN ×2 (14:20→19:03)
[2017-04-30] MEDS: guaiFENesin 100 mg/5 ml Syrup UD PO PRN (15:42)
--- NOTE | 2017-04-30 17:15 | CARD ---
APPROVED REPORT EKG Measurement Heart [id number] OR 122P-4 [id number] <Conclusion> Normal sinus rhythm Normal ECG
--- NOTE | 2017-04-30 20:41 | CP.PCM.CON ---
History of Present Illness - History of Present Illness History of Present Illness: Infectious Disease Consultation: April 30, 2017 51 yo male with history of IV heroin use injected into his left antecubital fossa 5 days ago. Since injection the patient had increased swelling and pain of the area. Worsened to the point that he is unable to bend the arm at the elbow now. Significant swelling of the left antecubital fossa with tenderness and warmth of the area. PMHx: Denies PSHx: Denies Allergies: NKDA Social Hx: Social EtOH, 5 cig per day for 20 years, Heroin use IV Active Medications Acetaminophen (Tylenol 325mg Tab) 650 mg PO Q4H PRN PRN Reason: Fever >100.4 F Last Admin: 04/30/17 15:43 Dose: 650 mg Acetaminophen (Tylenol 325mg Tab) 650 mg PO Q4 PRN PRN Reason: Pain, Mild (1-3) Albuterol/Ipratropium (Duoneb 3 Mg/0.5 Mg (3 Ml) Ud) 3 ml IH [id number] PRN PRN Reason: Shortness of Breath Last Admin: 04/30/17 19:03 Dose: 3 ml Famotidine (Pepcid) 20 mg IVP DAILY [facility] Last Admin: 04/30/17 09:13 Dose: 20 mg Guaifenesin (Robitussin) 100 mg PO Q4H PRN PRN Reason: Cough Last Admin: 04/30/17 15:42 Dose: 100 mg Heparin Sodium (Porcine) (Heparin) 5,000 units SC Q8 [facility] PRN Reason: Protocol Last Admin: 04/30/17 15:42 Dose: 5,000 units Sodium Chloride (Sodium Chloride 0.9%) 1,000 mls @ 100 mls/hr IV .Q10H [facility] Last Admin: 04/30/17 16:20 Dose: 100 mls/hr Vancomycin HCl (Vancomycin 1gm) 1 gm in 250 mls @ 167 mls/hr IVPB Q12H [facility] PRN Reason: Protocol Last Admin: 04/30/17 11:01 Dose: 167 mls/hr Nicotine (Nicoderm Cq) 1 patch TD DAILY PRN PRN Reason: URGE TO SMOKE Last Admin: 04/30/17 09:13 Dose: 1 patch Tramadol HCl (Ultram) 50 mg PO Q8H PRN PRN Reason: Pain, severe (8-10) Last Admin: 04/30/17 11:10 Dose: 50 mg Family Hx: none given ROS: Fevers, arm pain, limited left arm ROM No chest pain, melena, hematuria, hematemesis, hematochezia, depression, anxiety , diarrhea, SOB, vision loss, hearing loss Past Patient History - Infectious Disease Hx of Infectious Diseases: None - Past Social History Smoking Status: Light Smoker < 10 Cigarettes Daily - CARDIAC Hx Hypertension: No - PULMONARY Hx Asthma: Yes - NEUROLOGICAL Hx Seizures: No - HEENT Hx HEENT Problems: No - RENAL Hx Chronic Kidney Disease: No - ENDOCRINE/METABOLIC Hx Endocrine Disorders: No - HEMATOLOGICAL/ONCOLOGICAL Hx Cancer: No - INTEGUMENTARY Hx Dermatological Problems: No - MUSCULOSKELETAL/RHEUMATOLOGICAL Hx Musculoskeletal Disorders: No - GASTROINTESTINAL Hx Gastrointestinal Disorders: No - GENITOURINARY/GYNECOLOGICAL Hx Sexually Transmitted Disorders: No - PSYCHIATRIC Hx Anxiety: Yes Hx Depression: Yes Hx Substance Use: Yes - SURGICAL HISTORY Hx Surgeries: No - ANESTHESIA Hx Anesthesia: No Meds Allergies/Adverse Reactions: Allergies Allergy/AdvReac Type Severity Reaction Status Date / Time No Known Allergies Allergy Verified 04/29/17 22:36 - Medications Medications: Current Medications Acetaminophen (Tylenol 325mg Tab) 650 mg PO Q4H PRN PRN Reason: Fever >100.4 F Last Admin: 04/30/17 15:43 Dose: 650 mg Acetaminophen (Tylenol 325mg Tab) 650 mg PO Q4 PRN PRN Reason: Pain, Mild (1-3) Albuterol/Ipratropium (Duoneb 3 Mg/0.5 Mg (3 Ml) Ud) 3 ml IH [id number] PRN PRN Reason: Shortness of Breath Last Admin: 04/30/17 19:03 Dose: 3 ml Famotidine (Pepcid) 20 mg IVP DAILY [facility] Last Admin: 04/30/17 09:13 Dose: 20 mg Guaifenesin (Robitussin) 100 mg PO Q4H PRN PRN Reason: Cough Last Admin: 04/30/17 15:42 Dose: 100 mg Heparin Sodium (Porcine) (Heparin) 5,000 units SC Q8 [facility] PRN Reason: Protocol Last Admin: 04/30/17 15:42 Dose: 5,000 units Sodium Chloride (Sodium Chloride 0.9%) 1,000 mls @ 100 mls/hr IV .Q10H [facility] Last Admin: 04/30/17 16:20 Dose: 100 mls/hr Vancomycin HCl (Vancomycin 1gm) 1 gm in 250 mls @ 167 mls/hr IVPB Q12H [facility] PRN Reason: Protocol Last Admin: 04/30/17 11:01 Dose: 167 mls/hr Nicotine (Nicoderm Cq) 1 patch TD DAILY PRN PRN Reason: URGE TO SMOKE Last Admin: 04/30/17 09:13 Dose: 1 patch Tramadol HCl (Ultram) 50 mg PO Q8H PRN PRN Reason: Pain, severe (8-10) Last Admin: 04/30/17 11:10 Dose: 50 mg Physical Exam - Constitutional Appears: Non-toxic, No Acute Distress - Head Exam Head Exam: ATRAUMATIC, NORMOCEPHALIC - Eye Exam Eye Exam: EOMI, PERRL Pupil Exam: NORMAL ACCOMODATION, PERRL - ENT Exam ENT Exam: Mucous Membranes Moist, Normal External Ear Exam, TM's Normal Bilaterally - Neck Exam Neck exam: Positive for: Full Rom, Normal Inspection - Respiratory Exam Respiratory Exam: Clear to Auscultation Bilateral, NORMAL BREATHING PATTERN. absent: Rales, Rhonchi, Wheezes - Cardiovascular Exam Cardiovascular Exam: REGULAR RHYTHM, RRR, +S1, +S2 - GI/Abdominal Exam GI & Abdominal Exam: Normal Bowel Sounds, Soft. absent: Distended, Tenderness - Extremities Exam Extremities exam: Positive for: joint swelling, pedal edema Additional comments: left antecubital swelling, induration, erythema. Limited ROM. - Neurological Exam Neurological exam: Alert, Normal Gait, Oriented x3 - Psychiatric Exam Psychiatric exam: Normal Affect, Normal Mood - Skin Skin Exam: Erythema, Warm Results - Vital Signs Recent Vital Signs: Last Vital Signs Temp 100.1 F H 04/30/17 17:31 Pulse 77 04/30/17 08:27 Resp 20 04/30/17 08:27 BP 131/84 04/30/17 08:27 Pulse Ox 95 04/30/17 08:27 - Labs Result Diagrams: 04/30/17 05:00 04/30/17 07:30 Labs: Laboratory Results - last 24 hr 04/30/17 04/30/17 04/30/17 01:10 01:10 05:00 WBC 11.2 H RBC 3.77 Hgb 11.7 L Hct 34.0 L MCV 90.2 MCH 31.0 MCHC 34.4 RDW 13.8 Plt Count 213 MPV 9.0 Gran % 71.4 H Lymph % (Auto) 16.2 L [place] % (Auto) 11.1 H Eos % (Auto) 1.1 L Baso % (Auto) 0.2 Gran # 8.02 H Lymph # 1.8 [place] # 1.3 H Eos # 0.1 Baso # 0.02 Sodium Potassium Chloride Carbon Dioxide Anion Gap BUN Creatinine Est GFR ( Amer) Est GFR (Non-Af Amer) Random Glucose Hemoglobin A1c 5.6 Calcium Total Bilirubin AST ALT Alkaline Phosphatase Total Protein Albumin Globulin Albumin/Globulin Ratio Triglycerides 96 Cholesterol 123 L LDL Cholesterol Direct 74 HDL Cholesterol 26 L Hepatitis A IgM Ab Hep Bs Antigen Hep B Core IgM Ab Hepatitis C Antibody HIV 1&2 Antibody Screen 04/30/17 04/30/17 04/30/17 06:00 07:30 07:30 WBC RBC Hgb Hct MCV MCH MCHC RDW Plt Count MPV Gran % Lymph % (Auto) [place] % (Auto) Eos % (Auto) Baso % (Auto) Gran # Lymph # [place] # Eos # Baso # Sodium 138 Potassium 3.8 Chloride 104 Carbon Dioxide 25 Anion Gap 12 BUN 10 Creatinine 0.6 L Est GFR ( Amer) > 60 Est GFR (Non-Af Amer) > 60 Random Glucose 118 H Hemoglobin A1c Calcium 8.5 Total Bilirubin 0.3 AST 35 ALT 53 Alkaline Phosphatase 89 Total Protein 6.6 Albumin 3.2 Globulin 3.4 Albumin/Globulin Ratio 0.9 L Triglycerides Cholesterol LDL Cholesterol Direct HDL Cholesterol Hepatitis A IgM Ab Negative Hep Bs Antigen Negative Hep B Core IgM Ab Negative Hepatitis C Antibody Reactive HIV 1&2 Antibody Screen Negative Assessment & Plan - Assessment and Plan (Free Text) Assessment: 51 yo male with IV heroin use injected into left antecubital fossa. Must cover for gram negative organisms given cause of the infection. Continue with Vancomycin IV and Zosyn for now. Continue warm compresses. May need surgical decompression depending on how well patient responds to antibiotic therapy. Thank you for allowing me to participate in the care of the patient, we will follow with you.
[2017-05-01] MEDS: Piperacillin/Tazobact 3.375 gm 100 ML IVPB SCH ×5 (00:02→23:20)
[2017-05-01] MEDS: Vancomycin 1gm in NS 250ml 1 GM/250 ML BAG IVPB SCH ×2 (00:55→13:00)
[2017-05-01] MEDS: Sodium Chloride 0.9% 1,000 ML IV SCH (04:16)
[2017-05-01] MEDS: guaiFENesin 100 mg/5 ml Syrup UD PO PRN ×3 (04:21→20:31)
[2017-05-01 07:11] LABS: BASO # 0.01 K/mm3 (0.0-2.0); BASO % 0.1 % (0.0-3.0); EOS % 0.4 % (1.5-5.0); GRAN # 9.05 (1.4-6.5); GRAN % 80.4 % (50.0-68.0); HEMATOCRIT 36.1 % (42.0-52.0); LYMPH # 1.2 (1.2-3.4); MEAN CELL VOLUME 89.4 fl (80.0-105.0); MEAN CORPUSCULAR HGB CONC 33.5 g/dl (31.0-37.0); MONO # 0.9 (0.1-0.6); MONO % 8.1 % (1.0-6.0); RED CELL DISTRIBUTION WIDTH 13.7 % (11.5-14.5); WHITE BLOOD COUNT 11.3 10^3/ul (4.5-11.0)
[2017-05-01 07:22] LABS: ALB/GLOB RATIO 0.9 (1.1-1.8); ALKALINE PHOSPHATASE 89 U/L (38-126); ALT/SGPT 70 U/L (7-56); AST/SGOT 56 U/L (17-59); BILIRUBIN,TOTAL 0.7 mg/dL (0.2-1.3); BLOOD UREA NITROGEN 8 mg/dL (7-21); CALCIUM 8.8 mg/dL (8.4-10.5); CARBON DIOXIDE 24 mmol/L (21-33); CHLORIDE 109 mmol/L (98-107); GFR AFRICAN-AMERICAN > 60; GLUCOSE,RANDOM 113 mg/dL (70-110); SODIUM 142 mmol/L (132-148); TOTAL PROTEIN 6.9 g/dL (5.8-8.3)
--- NOTE | 2017-05-01 08:46 | CP.PCM.PN ---
Subjective - Date & Time of Evaluation Date of Evaluation: 05/01/17 Time of Evaluation: 06:45 - Subjective Subjective: PGY1-COG SURGERY PROGRESS NOTE Patient seen and evaluated this AM at bedside. No acute events reported overnight. Patient complains of left medial and anterior forearm discomfort, unchanged and improved from admission. Patient denies chest pain, shortness of breath, abdominal pain, nausea, vomiting, diarrhea, constipation and incontinence. Objective - Vital Signs/Intake and Output Vital Signs (last 24 hours): Temp Pulse Resp BP Pulse Ox 98.7 F 82 18 145/86 96 05/01/17 04:32 05/01/17 04:32 05/01/17 04:32 05/01/17 04:32 05/01/17 00:05 Intake and Output: 05/01/17 05/01/17 06:59 18:59 Intake Total 1020 Output Total 2050 Balance -1030 - Medications Medications: Current Medications Acetaminophen (Tylenol 325mg Tab) 650 mg PO Q4H PRN PRN Reason: Fever >100.4 F Last Admin: 04/30/17 15:43 Dose: 650 mg Acetaminophen (Tylenol 325mg Tab) 650 mg PO Q4 PRN PRN Reason: Pain, Mild (1-3) Albuterol/Ipratropium (Duoneb 3 Mg/0.5 Mg (3 Ml) Ud) 3 ml IH [id number] PRN PRN Reason: Shortness of Breath Last Admin: 04/30/17 19:03 Dose: 3 ml Famotidine (Pepcid) 20 mg IVP DAILY [facility] Last Admin: 04/30/17 09:13 Dose: 20 mg Guaifenesin (Robitussin) 100 mg PO Q4H PRN PRN Reason: Cough Last Admin: 05/01/17 04:21 Dose: 100 mg Heparin Sodium (Porcine) (Heparin) 5,000 units SC Q8 [facility] PRN Reason: Protocol Last Admin: 05/01/17 06:17 Dose: Not Given Sodium Chloride (Sodium Chloride 0.9%) 1,000 mls @ 100 mls/hr IV .Q10H [facility] Last Admin: 05/01/17 04:16 Dose: 100 mls/hr Vancomycin HCl (Vancomycin 1gm) 1 gm in 250 mls @ 167 mls/hr IVPB Q12H [facility] PRN Reason: Protocol Last Admin: 05/01/17 00:55 Dose: 167 mls/hr Piperacillin Sod/Tazobactam Sod (Zosyn 3.375 In Ns 100ml) 100 mls @ 200 mls/hr IVPB Q6 [facility] PRN Reason: Protocol Last Admin: 05/01/17 06:11 Dose: 200 mls/hr Nicotine (Nicoderm Cq) 1 patch TD DAILY PRN PRN Reason: URGE TO SMOKE Last Admin: 04/30/17 09:13 Dose: 1 patch Tramadol HCl (Ultram) 50 mg PO Q8H PRN PRN Reason: Pain, severe (8-10) Last Admin: 05/01/17 04:14 Dose: 50 mg - Labs Labs: 05/01/17 06:30 05/01/17 06:30 - Constitutional Appears: No Acute Distress - Head Exam Head Exam: ATRAUMATIC, NORMAL INSPECTION, NORMOCEPHALIC - Eye Exam Eye Exam: EOMI, PERRL Pupil Exam: PERRL - ENT Exam ENT Exam: Mucous Membranes Moist - Respiratory Exam Respiratory Exam: Clear to Ausculation Bilateral, NORMAL BREATHING PATTERN. absent: Rales, Rhonchi, Wheezes - Cardiovascular Exam Cardiovascular Exam: REGULAR RHYTHM - GI/Abdominal Exam GI & Abdominal Exam: Soft, Normal Bowel Sounds. absent: Distended, Tenderness - Extremities Exam Extremities Exam: Normal Capillary Refill. absent: Calf Tenderness Additional comments: Left antecubital fossa with inuration, erythema, and edema with no fluctuence, patient notes tenderness to palpation and pain with passive ROM, sensory and motor grossly intact - Back Exam Back Exam: absent: CVA tenderness (L), CVA tenderness (R) - Neurological Exam Neurological Exam: Alert, Awake, CN II-XII Intact, Oriented x3 - Psychiatric Exam Psychiatric exam: Normal Affect, Normal Mood - Skin Skin Exam: Dry, Intact. absent: Rash Assessment and Plan - Assessment and Plan (Free Text) Assessment: 51 M with PMH of IVDA abuse presents for left antecubital fossa cellulitis and suspected abscess Plan: -Continue IV antibiotics -Non-opiod analgesics PRN -Warm compresses -Possible I&D bedside later today with surgical team -Discuss plan with Dr. Marshall
--- NOTE | 2017-05-01 10:11 | US ---
PROCEDURE: Ultrasound soft tissue left antecubital fossa HISTORY: left antecubital fossa swelling. COMPARISON: Not available TECHNIQUE: High-frequency linear array color Doppler transducer FINDINGS: There is an ovoid heterogeneous hypoechoic soft tissue mass/ collection in the left antecubital fossa. There is vascularity demonstrated within this mass. There is extensive peripheral hypervascularity. The findings are strongly suggestive of a phlegmon. Given the presence of internal vascularity, this does not represent a complex fluid collection at this time. The overall dimensions are 4.8 x 1.5 by 2.5 cm. There is no additional abnormality demonstrated. IMPRESSION: 4.8 cm complex heterogeneous hypoechoic mass with peripheral hypervascularity but some demonstrable internal vascularity, most likely a phlegmon.
[2017-05-01] MEDS ORDERED: Lidocaine 2% Inj (20ml) IJ STA (12:39)
--- NOTE | 2017-05-01 13:46 | CP.PCM.PN ---
<Hao Wagner - Last Filed: 05/01/17 16:37> Subjective - Date & Time of Evaluation Date of Evaluation: 05/01/17 Time of Evaluation: 08:10 - Subjective Subjective: Patient seen and examined at bedside. Patient states his only complaints is pain and swelling in his left arm. Patient states this is the site at which he did IV heroin. Patient admits to nausea, cough, fever, chills, headache. Denies chest pain. States last time using heroin was this past Monday. Objective - Vital Signs/Intake and Output Vital Signs (last 24 hours): Temp Pulse Resp BP Pulse Ox 98.8 F 88 20 128/70 96 05/01/17 07:30 05/01/17 07:30 05/01/17 07:30 05/01/17 07:30 05/01/17 07:30 Intake and Output: 05/01/17 05/01/17 06:59 18:59 Intake Total 1020 Output Total 2050 Balance -1030 - Medications Medications: Current Medications Acetaminophen (Tylenol 325mg Tab) 650 mg PO Q4H PRN PRN Reason: Fever >100.4 F Last Admin: 04/30/17 15:43 Dose: 650 mg Acetaminophen (Tylenol 325mg Tab) 650 mg PO Q4 PRN PRN Reason: Pain, Mild (1-3) Albuterol/Ipratropium (Duoneb 3 Mg/0.5 Mg (3 Ml) Ud) 3 ml IH [id number] PRN PRN Reason: Shortness of Breath Last Admin: 04/30/17 19:03 Dose: 3 ml Famotidine (Pepcid) 20 mg PO DAILY [facility] Guaifenesin (Robitussin) 100 mg PO Q4H PRN PRN Reason: Cough Last Admin: 05/01/17 04:21 Dose: 100 mg Heparin Sodium (Porcine) (Heparin) 5,000 units SC Q8 [facility] PRN Reason: Protocol Last Admin: 05/01/17 06:17 Dose: Not Given Sodium Chloride (Sodium Chloride 0.9%) 1,000 mls @ 100 mls/hr IV .Q10H [facility] Last Admin: 05/01/17 04:16 Dose: 100 mls/hr Vancomycin HCl (Vancomycin 1gm) 1 gm in 250 mls @ 167 mls/hr IVPB Q12H [facility] PRN Reason: Protocol Last Admin: 05/01/17 13:00 Dose: 167 mls/hr Piperacillin Sod/Tazobactam Sod (Zosyn 3.375 In Ns 100ml) 100 mls @ 200 mls/hr IVPB Q6 [facility] PRN Reason: Protocol Last Admin: 05/01/17 12:21 Dose: 200 mls/hr Nicotine (Nicoderm Cq) 1 patch TD DAILY PRN PRN Reason: URGE TO SMOKE Last Admin: 04/30/17 09:13 Dose: 1 patch Tramadol HCl (Ultram) 50 mg PO Q8H PRN PRN Reason: Pain, severe (8-10) Last Admin: 05/01/17 04:14 Dose: 50 mg - Labs Labs: 05/01/17 06:30 05/01/17 06:30 - Head Exam Head Exam: ATRAUMATIC, NORMAL INSPECTION, NORMOCEPHALIC - Eye Exam Eye Exam: EOMI, Normal appearance - ENT Exam ENT Exam: Mucous Membranes Moist, Normal Exam - Neck Exam Neck Exam: Full ROM, Normal Inspection - Respiratory Exam Respiratory Exam: Clear to Ausculation Bilateral, Rhonchi, NORMAL BREATHING PATTERN. absent: Wheezes - Cardiovascular Exam Cardiovascular Exam: REGULAR RHYTHM, +S1, +S2 - GI/Abdominal Exam GI & Abdominal Exam: Soft, Normal Bowel Sounds - Rectal Exam Rectal Exam: NORMAL INSPECTION - Back Exam Back Exam: NORMAL INSPECTION - Neurological Exam Neurological Exam: Alert, Awake, Oriented x3 - Psychiatric Exam Psychiatric exam: Normal Affect, Normal Mood - Skin Skin Exam: Intact, Normal Color, Warm Assessment and Plan - Assessment and Plan (Free Text) Assessment: Assessment and Plan: Patient is a 51 year old male with past medical history of IV heroin abuse and asthma who was admitted for evaluation and treatment of chest congestion, cough , and subjective fevers. Plan: 1. Chest Congestion, Productive Cough - ID consulted - does not meet SIRs criteria - blood cultures and sputum culture; no growth after 24 hours - atypicals pending - IVF @ 100 - duonebs q4h prn SOB 2. Cellulitis - pain control- tylenol mild and tramadol severe - demarcate effected area - X-ray of Left elbow; unremarkable - Soft tissue ultrasound; 4.8 cm complex heterogenous hypoechoic mass with peripheral hypervascularity but some demonstrable internal vascularity, most likely a phlegmon. - antibiotics- c/w vancomycin and zosyn - IVF @ 100 - I&D planned with General Surgery for this afternoon - Plan to switch to PO antibiotics after I&D and monitor within 24 hours for possible discharge 3. Anemia - H&H improving - monitor closely via CBC 4.Tobacco/Polysubstance Abuse - nicotine patch offered - smoking cessation advised - patient education provided on dangers of tobacco use/heroin abuse - HIV; negative - Hep B; negative - Hep C; reactive 5. Prophylaxis - DVT ppx- subq heparin as per noy score - GI ppx- famotidine Patient case discussed with and plan approved by attending physician. <Brenda Reed - Last Filed: 05/01/17 17:02> Objective - Vital Signs/Intake and Output Vital Signs (last 24 hours): Temp Pulse Resp BP Pulse Ox 98.8 F 88 20 128/70 96 05/01/17 07:30 05/01/17 07:30 05/01/17 07:30 05/01/17 07:30 05/01/17 07:30 Intake and Output: 05/01/17 05/01/17 06:59 18:59 Intake Total 1020 600 Output Total 2050 700 Balance -1030 -100 - Medications Medications: Current Medications Acetaminophen (Tylenol 325mg Tab) 650 mg PO Q4H PRN PRN Reason: Fever >100.4 F Last Admin: 04/30/17 15:43 Dose: 650 mg Acetaminophen (Tylenol 325mg Tab) 650 mg PO Q4 PRN PRN Reason: Pain, Mild (1-3) Albuterol/Ipratropium (Duoneb 3 Mg/0.5 Mg (3 Ml) Ud) 3 ml IH [id number] PRN PRN Reason: Shortness of Breath Last Admin: 05/01/17 13:52 Dose: 3 ml Famotidine (Pepcid) 20 mg PO DAILY [facility] Guaifenesin (Robitussin) 100 mg PO Q4H PRN PRN Reason: Cough Last Admin: 05/01/17 15:34 Dose: 100 mg Heparin Sodium (Porcine) (Heparin) 5,000 units SC Q8 [facility] PRN Reason: Protocol Last Admin: 05/01/17 15:37 Dose: Not Given Sodium Chloride (Sodium Chloride 0.9%) 1,000 mls @ 100 mls/hr IV .Q10H [facility] Last Admin: 05/01/17 04:16 Dose: 100 mls/hr Vancomycin HCl (Vancomycin 1gm) 1 gm in 250 mls @ 167 mls/hr IVPB Q12H [facility] PRN Reason: Protocol Last Admin: 05/01/17 13:00 Dose: 167 mls/hr Piperacillin Sod/Tazobactam Sod (Zosyn 3.375 In Ns 100ml) 100 mls @ 200 mls/hr IVPB Q6 [facility] PRN Reason: Protocol Last Admin: 05/01/17 12:21 Dose: 200 mls/hr Nicotine (Nicoderm Cq) 1 patch TD DAILY PRN PRN Reason: URGE TO SMOKE Last Admin: 04/30/17 09:13 Dose: 1 patch Tramadol HCl (Ultram) 50 mg PO Q8H PRN PRN Reason: Pain, severe (8-10) Last Admin: 05/01/17 04:14 Dose: 50 mg - Labs Labs: 05/01/17 06:30 05/01/17 06:30 Attending/Attestation - Attestation I have personally seen and examined this patient.: Yes I have fully participated in the care of the patient.: Yes I have reviewed all pertinent clinical information, including history, physical exam and plan: Yes Notes (Text): 05/01/17 16:59 Patient was seen and examined with family practice medical doctor. Agreed with resident assessment and plan. 51 M with PMH of IV drug abuse was admitted with sepsis due to left antecubital fossa cellulitis and suspected abscess,on IV Van/Zosyn Blood cultures are negative for any growth.HIV test and Heatitis panel is negative. Patient is for possible I/D by surgery today.We will follow up cultures. Management plan was discussed in detail with patient Education was provided.
[2017-05-01] MEDS: Albuterol-Ipratrop 3 mg / 0.5 (3 ml) UD IH PRN (13:52)
--- NOTE | 2017-05-01 20:06 | CP.PCM.PN ---
Subjective - Date & Time of Evaluation Date of Evaluation: 05/01/17 Time of Evaluation: 18:15 - Subjective Subjective: Infectious Disease Follow Up: May 01, 2017 51 yo male with history of IV heroin use injected into his left antecubital fossa 5 days ago. Since injection the patient had increased swelling and pain of the area. Worsened to the point that he is unable to bend the arm at the elbow now. Significant swelling of the left antecubital fossa with tenderness and warmth of the area. No significant changes to the area since admission. For I&D in AM. Continues on IV antibiotics. Blood cultures negative to date which was expected. Objective - Vital Signs/Intake and Output Vital Signs (last 24 hours): Temp Pulse Resp BP Pulse Ox 98.8 F 88 20 128/70 96 05/01/17 07:30 05/01/17 07:30 05/01/17 07:30 05/01/17 07:30 05/01/17 07:30 Intake and Output: 05/01/17 05/02/17 18:59 06:59 Intake Total 600 Output Total 700 Balance -100 - Medications Medications: Current Medications Acetaminophen (Tylenol 325mg Tab) 650 mg PO Q4H PRN PRN Reason: Fever >100.4 F Last Admin: 04/30/17 15:43 Dose: 650 mg Acetaminophen (Tylenol 325mg Tab) 650 mg PO Q4 PRN PRN Reason: Pain, Mild (1-3) Albuterol/Ipratropium (Duoneb 3 Mg/0.5 Mg (3 Ml) Ud) 3 ml IH [id number] PRN PRN Reason: Shortness of Breath Last Admin: 05/01/17 13:52 Dose: 3 ml Famotidine (Pepcid) 20 mg PO DAILY [facility] Guaifenesin (Robitussin) 100 mg PO Q4H PRN PRN Reason: Cough Last Admin: 05/01/17 15:34 Dose: 100 mg Heparin Sodium (Porcine) (Heparin) 5,000 units SC Q8 [facility] PRN Reason: Protocol Last Admin: 05/01/17 15:37 Dose: Not Given Sodium Chloride (Sodium Chloride 0.9%) 1,000 mls @ 100 mls/hr IV .Q10H [facility] Last Admin: 05/01/17 04:16 Dose: 100 mls/hr Vancomycin HCl (Vancomycin 1gm) 1 gm in 250 mls @ 167 mls/hr IVPB Q12H [facility] PRN Reason: Protocol Last Admin: 05/01/17 13:00 Dose: 167 mls/hr Piperacillin Sod/Tazobactam Sod (Zosyn 3.375 In Ns 100ml) 100 mls @ 200 mls/hr IVPB Q6 [facility] PRN Reason: Protocol Last Admin: 05/01/17 17:48 Dose: 200 mls/hr Nicotine (Nicoderm Cq) 1 patch TD DAILY PRN PRN Reason: URGE TO SMOKE Last Admin: 04/30/17 09:13 Dose: 1 patch Tramadol HCl (Ultram) 50 mg PO Q8H PRN PRN Reason: Pain, severe (8-10) Last Admin: 05/01/17 04:14 Dose: 50 mg - Labs Labs: 05/01/17 06:30 05/01/17 06:30 - Constitutional Appears: Non-toxic, No Acute Distress - Head Exam Head Exam: ATRAUMATIC, NORMOCEPHALIC - Eye Exam Eye Exam: EOMI, PERRL Pupil Exam: NORMAL ACCOMODATION, PERRL - ENT Exam ENT Exam: Mucous Membranes Moist, Normal External Ear Exam, TM's Normal Bilaterally - Neck Exam Neck Exam: Full ROM, Normal Inspection - Respiratory Exam Respiratory Exam: Clear to Ausculation Bilateral, NORMAL BREATHING PATTERN. absent: Rales, Rhonchi, Wheezes - Cardiovascular Exam Cardiovascular Exam: REGULAR RHYTHM, RRR, +S1, +S2 - GI/Abdominal Exam GI & Abdominal Exam: Soft, Normal Bowel Sounds. absent: Distended, Tenderness - Extremities Exam Extremities Exam: Joint Swelling, Pedal Edema Additional comments: large left antecubital swelling, induration, erythema. Limited ROM. - Neurological Exam Neurological Exam: Alert, Awake, CN II-XII Intact, Oriented x3 - Psychiatric Exam Psychiatric exam: Normal Affect, Normal Mood - Skin Skin Exam: Erythema, Warm Assessment and Plan - Assessment and Plan (Free Text) Assessment: 51 yo male with IV heroin use injected into left antecubital fossa. Must cover for gram negative organisms given cause of the infection. Continue with Vancomycin IV and Zosyn for now. Continue warm compresses. May need surgical decompression depending on how well patient responds to antibiotic therapy. He is planned for I&D in the AM. Thank you for allowing me to participate in the care of the patient, we will follow with you.
[2017-05-01 22:04] VITALS: RESP 18
[2017-05-02] MEDS: Vancomycin 1gm in NS 250ml 1 GM/250 ML BAG IVPB SCH ×2 (00:22→13:17)
[2017-05-02] MEDS: Piperacillin/Tazobact 3.375 gm 100 ML IVPB SCH ×2 (06:05→12:24)
[2017-05-02 07:21] LABS: BASO # 0.02 K/mm3 (0.0-2.0); BASO % 0.2 % (0.0-3.0); EOS # 0.1 (0.0-0.7); EOS % 1.1 % (1.5-5.0); GRAN # 6.83 (1.4-6.5); GRAN % 74.9 % (50.0-68.0); HEMATOCRIT 37.1 % (42.0-52.0); LYMPH # 1.6 (1.2-3.4); MEAN CELL VOLUME 89.8 fl (80.0-105.0); MEAN CORPUSCULAR HEMOGLOBIN 30.8 pg (25.0-35.0); MEAN CORPUSCULAR HGB CONC 34.2 g/dl (31.0-37.0); MEAN PLATELET VOLUME 9.2 fl (7.0-11.0); MONO # 0.5 (0.1-0.6); MONO % 5.8 % (1.0-6.0); WHITE BLOOD COUNT 9.1 10^3/ul (4.5-11.0)
[2017-05-02 07:52] LABS: ALB/GLOB RATIO 0.9 (1.1-1.8); ALKALINE PHOSPHATASE 93 U/L (38-126); ALT/SGPT 117 U/L (7-56); AST/SGOT 99 U/L (17-59); BILIRUBIN,TOTAL 0.7 mg/dL (0.2-1.3); BLOOD UREA NITROGEN 7 mg/dL (7-21); CALCIUM 8.8 mg/dL (8.4-10.5); CARBON DIOXIDE 23 mmol/L (21-33); CHLORIDE 110 mmol/L (98-107); GFR AFRICAN-AMERICAN > 60; GLUCOSE,RANDOM 109 mg/dL (70-110); POTASSIUM 4.2 mmol/L (3.6-5.0); SODIUM 142 mmol/L (132-148); TOTAL PROTEIN 6.8 g/dL (5.8-8.3)
[2017-05-02 08:14] VITALS: BP 124/74; PULSE 81; TEMP 98.4; O2SAT 97
--- NOTE | 2017-05-02 10:41 | CP.PCM.PN ---
Subjective - Date & Time of Evaluation Date of Evaluation: 05/02/17 Time of Evaluation: 07:05 - Subjective Subjective: PGY1-COG SURGERY PROGRESS NOTE Patient seen and evaluated this AM at bedside. No acute events reported overnight. Patient complains of left medial and anterior forearm discomfort that is unchanged from admission. Warm compresses continued to be applied to bring potential abscess to surface. Patient denies chest pain, shortness of breath, abdominal pain, numbness, weankess, nausea, vomiting, diarrhea, constipation and incontinence. Objective - Vital Signs/Intake and Output Vital Signs (last 24 hours): Temp Pulse Resp BP Pulse Ox 98.4 F 81 18 124/74 97 05/02/17 08:13 05/02/17 08:13 05/02/17 08:13 05/02/17 08:13 05/02/17 08:13 Intake and Output: 05/02/17 05/02/17 06:59 18:59 Intake Total 660 Output Total 2000 Balance -1340 - Medications Medications: Current Medications Acetaminophen (Tylenol 325mg Tab) 650 mg PO Q4H PRN PRN Reason: Fever >100.4 F Last Admin: 04/30/17 15:43 Dose: 650 mg Acetaminophen (Tylenol 325mg Tab) 650 mg PO Q4 PRN PRN Reason: Pain, Mild (1-3) Albuterol/Ipratropium (Duoneb 3 Mg/0.5 Mg (3 Ml) Ud) 3 ml IH [id number] PRN PRN Reason: Shortness of Breath Last Admin: 05/01/17 13:52 Dose: 3 ml Famotidine (Pepcid) 20 mg PO DAILY [facility] Guaifenesin (Robitussin) 100 mg PO Q4H PRN PRN Reason: Cough Last Admin: 05/01/17 20:31 Dose: 100 mg Heparin Sodium (Porcine) (Heparin) 5,000 units SC Q8 [facility] PRN Reason: Protocol Last Admin: 05/02/17 07:31 Dose: Not Given Sodium Chloride (Sodium Chloride 0.9%) 1,000 mls @ 100 mls/hr IV .Q10H [facility] Last Admin: 05/01/17 04:16 Dose: 100 mls/hr Vancomycin HCl (Vancomycin 1gm) 1 gm in 250 mls @ 167 mls/hr IVPB Q12H [facility] PRN Reason: Protocol Last Admin: 05/02/17 00:22 Dose: 167 mls/hr Piperacillin Sod/Tazobactam Sod (Zosyn 3.375 In Ns 100ml) 100 mls @ 200 mls/hr IVPB Q6 [facility] PRN Reason: Protocol Last Admin: 05/02/17 06:05 Dose: 200 mls/hr Nicotine (Nicoderm Cq) 1 patch TD DAILY PRN PRN Reason: URGE TO SMOKE Last Admin: 04/30/17 09:13 Dose: 1 patch Tramadol HCl (Ultram) 50 mg PO Q8H PRN PRN Reason: Pain, severe (8-10) Last Admin: 05/01/17 20:31 Dose: 50 mg - Labs Labs: 05/02/17 06:00 05/02/17 06:00 - Constitutional Appears: No Acute Distress - Head Exam Head Exam: ATRAUMATIC, NORMAL INSPECTION, NORMOCEPHALIC - Eye Exam Eye Exam: EOMI, PERRL - ENT Exam ENT Exam: Mucous Membranes Moist - Respiratory Exam Respiratory Exam: Clear to Ausculation Bilateral, NORMAL BREATHING PATTERN - Cardiovascular Exam Cardiovascular Exam: REGULAR RHYTHM - GI/Abdominal Exam GI & Abdominal Exam: Soft, Normal Bowel Sounds - Extremities Exam Extremities Exam: Normal Capillary Refill. absent: Calf Tenderness Additional comments: Left antecubital fossa with induration, erythema, and edema with no fluctuence, patient notes tenderness to palpation and pain with passive ROM, sensory and motor grossly intact - Back Exam Back Exam: absent: CVA tenderness (L), CVA tenderness (R) - Neurological Exam Neurological Exam: Alert, Awake, Normal Gait, Oriented x3 - Psychiatric Exam Psychiatric exam: Normal Affect, Normal Mood - Skin Skin Exam: Dry, Intact Assessment and Plan - Assessment and Plan (Free Text) Assessment: 51 M with PMH of IVDA abuse presents for left antecubital fossa cellulitis and suspected abscess Plan: -Continue IV antibiotics -Non-opiod analgesics PRN -Continue warm compresses -Potential I&D bedside today -Discuss plan with Dr. Marshall
[2017-05-02] MEDS ORDERED: HYDROmorphone 1 mg/ml ISec IVP STA (11:00)
--- NOTE | 2017-05-02 11:43 | CP.PCM.PN ---
Subjective - Date & Time of Evaluation Date of Evaluation: 05/02/17 Time of Evaluation: 10:30 - Subjective Subjective: Infectious Disease Follow Up: May 02, 2017 51 yo male with history of IV heroin use injected into his left antecubital fossa 5 days ago. Since injection the patient had increased swelling and pain of the area. Worsened to the point that he is unable to bend the arm at the elbow now. Significant swelling of the left antecubital fossa with tenderness and warmth of the area. No significant changes to the area since admission. For possible I&D today by surgery. Continues on IV antibiotics. Blood cultures negative to date which was expected. Objective - Vital Signs/Intake and Output Vital Signs (last 24 hours): Temp Pulse Resp BP Pulse Ox 98.4 F 81 18 124/74 97 05/02/17 08:13 05/02/17 08:13 05/02/17 08:13 05/02/17 08:13 05/02/17 08:13 Intake and Output: 05/02/17 05/02/17 06:59 18:59 Intake Total 660 Output Total 2000 Balance -1340 - Medications Medications: Current Medications Acetaminophen (Tylenol 325mg Tab) 650 mg PO Q4H PRN PRN Reason: Fever >100.4 F Last Admin: 04/30/17 15:43 Dose: 650 mg Acetaminophen (Tylenol 325mg Tab) 650 mg PO Q4 PRN PRN Reason: Pain, Mild (1-3) Albuterol/Ipratropium (Duoneb 3 Mg/0.5 Mg (3 Ml) Ud) 3 ml IH [id number] PRN PRN Reason: Shortness of Breath Last Admin: 05/01/17 13:52 Dose: 3 ml Famotidine (Pepcid) 20 mg PO DAILY [facility] Guaifenesin (Robitussin) 100 mg PO Q4H PRN PRN Reason: Cough Last Admin: 05/01/17 20:31 Dose: 100 mg Heparin Sodium (Porcine) (Heparin) 5,000 units SC Q8 [facility] PRN Reason: Protocol Last Admin: 05/02/17 07:31 Dose: Not Given Sodium Chloride (Sodium Chloride 0.9%) 1,000 mls @ 100 mls/hr IV .Q10H [facility] Last Admin: 05/01/17 04:16 Dose: 100 mls/hr Vancomycin HCl (Vancomycin 1gm) 1 gm in 250 mls @ 167 mls/hr IVPB Q12H [facility] PRN Reason: Protocol Last Admin: 05/02/17 00:22 Dose: 167 mls/hr Piperacillin Sod/Tazobactam Sod (Zosyn 3.375 In Ns 100ml) 100 mls @ 200 mls/hr IVPB Q6 [facility] PRN Reason: Protocol Last Admin: 05/02/17 06:05 Dose: 200 mls/hr Nicotine (Nicoderm Cq) 1 patch TD DAILY PRN PRN Reason: URGE TO SMOKE Last Admin: 04/30/17 09:13 Dose: 1 patch Tramadol HCl (Ultram) 50 mg PO Q8H PRN PRN Reason: Pain, severe (8-10) Last Admin: 05/01/17 20:31 Dose: 50 mg - Labs Labs: 05/02/17 06:00 05/02/17 06:00 - Constitutional Appears: Non-toxic, No Acute Distress - Head Exam Head Exam: ATRAUMATIC, NORMOCEPHALIC - Eye Exam Eye Exam: EOMI, PERRL Pupil Exam: NORMAL ACCOMODATION, PERRL - ENT Exam ENT Exam: Mucous Membranes Moist, Normal External Ear Exam, TM's Normal Bilaterally - Neck Exam Neck Exam: Full ROM, Normal Inspection - Respiratory Exam Respiratory Exam: Clear to Ausculation Bilateral, NORMAL BREATHING PATTERN. absent: Rales, Rhonchi, Wheezes - Cardiovascular Exam Cardiovascular Exam: REGULAR RHYTHM, RRR, +S1, +S2 - GI/Abdominal Exam GI & Abdominal Exam: Soft, Normal Bowel Sounds. absent: Distended, Tenderness - Extremities Exam Extremities Exam: Joint Swelling, Pedal Edema Additional comments: large left antecubital swelling, induration, erythema. Limited ROM. - Neurological Exam Neurological Exam: Alert, Awake, CN II-XII Intact, Oriented x3 - Psychiatric Exam Psychiatric exam: Normal Affect, Normal Mood - Skin Skin Exam: Erythema, Warm Assessment and Plan - Assessment and Plan (Free Text) Assessment: 51 yo male with IV heroin use injected into left antecubital fossa. Must cover for gram negative organisms given cause of the infection. Continue with Vancomycin IV and Zosyn for now. Continue warm compresses. May need surgical decompression depending on how well patient responds to antibiotic therapy. Possible I&D today by Surgery. Very slow in healing in term of size and swelling. Erythema seems to be improved however. Thank you for allowing me to participate in the care of the patient, we will follow with you.
--- NOTE | 2017-05-02 13:21 | CP.PCM.PN ---
<Hao Wagner - Last Filed: 05/02/17 15:35> Subjective - Date & Time of Evaluation Date of Evaluation: 05/02/17 Time of Evaluation: 07:30 - Subjective Subjective: Patient seen and examined at bedside. States he is very nauseous. Has not had heroin since Monday but states he is going through withdrawals and requests "librium." Patient denies chest pain, shortness of breath, abdominal pain, dizziness, headache. Objective - Vital Signs/Intake and Output Vital Signs (last 24 hours): Temp Pulse Resp BP Pulse Ox 98.4 F 81 18 124/74 97 05/02/17 08:13 05/02/17 08:13 05/02/17 08:13 05/02/17 08:13 05/02/17 08:13 Intake and Output: 05/02/17 05/02/17 06:59 18:59 Intake Total 660 Output Total 2000 Balance -1340 - Medications Medications: Current Medications Acetaminophen (Tylenol 325mg Tab) 650 mg PO Q4H PRN PRN Reason: Fever >100.4 F Last Admin: 04/30/17 15:43 Dose: 650 mg Acetaminophen (Tylenol 325mg Tab) 650 mg PO Q4 PRN PRN Reason: Pain, Mild (1-3) Albuterol/Ipratropium (Duoneb 3 Mg/0.5 Mg (3 Ml) Ud) 3 ml IH [id number] PRN PRN Reason: Shortness of Breath Last Admin: 05/01/17 13:52 Dose: 3 ml Famotidine (Pepcid) 20 mg PO DAILY [facility] Guaifenesin (Robitussin) 100 mg PO Q4H PRN PRN Reason: Cough Last Admin: 05/01/17 20:31 Dose: 100 mg Heparin Sodium (Porcine) (Heparin) 5,000 units SC Q8 [facility] PRN Reason: Protocol Last Admin: 05/02/17 07:31 Dose: Not Given Sodium Chloride (Sodium Chloride 0.9%) 1,000 mls @ 100 mls/hr IV .Q10H [facility] Last Admin: 05/01/17 04:16 Dose: 100 mls/hr Vancomycin HCl (Vancomycin 1gm) 1 gm in 250 mls @ 167 mls/hr IVPB Q12H [facility] PRN Reason: Protocol Last Admin: 05/02/17 00:22 Dose: 167 mls/hr Piperacillin Sod/Tazobactam Sod (Zosyn 3.375 In Ns 100ml) 100 mls @ 200 mls/hr IVPB Q6 [facility] PRN Reason: Protocol Last Admin: 05/02/17 12:24 Dose: 200 mls/hr Nicotine (Nicoderm Cq) 1 patch TD DAILY PRN PRN Reason: URGE TO SMOKE Last Admin: 04/30/17 09:13 Dose: 1 patch Tramadol HCl (Ultram) 50 mg PO Q8H PRN PRN Reason: Pain, severe (8-10) Last Admin: 05/01/17 20:31 Dose: 50 mg - Labs Labs: 05/02/17 06:00 05/02/17 06:00 - Constitutional Appears: Non-toxic, No Acute Distress - Head Exam Head Exam: ATRAUMATIC, NORMAL INSPECTION, NORMOCEPHALIC - Eye Exam Eye Exam: EOMI, Normal appearance - ENT Exam ENT Exam: Mucous Membranes Moist - Neck Exam Neck Exam: Full ROM - Respiratory Exam Respiratory Exam: Clear to Ausculation Bilateral, NORMAL BREATHING PATTERN. absent: Rhonchi, Wheezes - Cardiovascular Exam Cardiovascular Exam: REGULAR RHYTHM, +S1, +S2 - GI/Abdominal Exam GI & Abdominal Exam: Soft, Normal Bowel Sounds - Extremities Exam Extremities Exam: Full ROM - Back Exam Back Exam: NORMAL INSPECTION - Neurological Exam Neurological Exam: Alert, Awake, Oriented x3 - Psychiatric Exam Psychiatric exam: Normal Affect, Normal Mood - Skin Skin Exam: Intact, Normal Color, Warm Assessment and Plan - Assessment and Plan (Free Text) Assessment: Assessment and Plan: Patient is a 51 year old male with past medical history of IV heroin abuse and asthma who was admitted for evaluation and treatment of chest congestion, cough , and subjective fevers. Plan: 1. Chest Congestion, Productive Cough - ID consulted and recommends continuation of IV Vancomycin and Zosyn - blood cultures and sputum culture; no growth after 48 hours - Legionella antigen; negative - Strep pneumo, mycoplasma; results pending 2. Cellulitis - pain control- tylenol mild and tramadol severe - demarcate effected area - X-ray of Left elbow; unremarkable - Soft tissue ultrasound; 4.8 cm complex heterogenous hypoechoic mass with peripheral hypervascularity but some demonstrable internal vascularity, most likely a phlegmon. - antibiotics-ID recommends to continue with IV vancomycin and zosyn - IVF @ 100 - I&D performed; wound cultures ordered 3. Anemia - H&H improving - monitor closely via CBC 4.Tobacco/Polysubstance Abuse - nicotine patch offered - smoking cessation advised - patient education provided on dangers of tobacco use/heroin abuse - HIV; negative - Hep B; negative - Hep C; reactive: results discussed and given to patient 5. Prophylaxis - DVT - subq heparin as per noy score - GI- famotidine Patient case discussed with and plan approved by attending physician. <Perla Maldonado - Last Filed: 05/02/17 15:50> Objective - Vital Signs/Intake and Output Vital Signs (last 24 hours): Temp Pulse Resp BP Pulse Ox 98.4 F 81 18 124/74 97 05/02/17 08:13 05/02/17 08:13 05/02/17 08:13 05/02/17 08:13 05/02/17 08:13 Intake and Output: 05/02/17 05/02/17 06:59 18:59 Intake Total 660 600 Output Total 2000 800 Balance -1340 -200 - Medications Medications: Current Medications Acetaminophen (Tylenol 325mg Tab) 650 mg PO Q4H PRN PRN Reason: Fever >100.4 F Last Admin: 04/30/17 15:43 Dose: 650 mg Acetaminophen (Tylenol 325mg Tab) 650 mg PO Q4 PRN PRN Reason: Pain, Mild (1-3) Albuterol/Ipratropium (Duoneb 3 Mg/0.5 Mg (3 Ml) Ud) 3 ml IH [id number] PRN PRN Reason: Shortness of Breath Last Admin: 05/01/17 13:52 Dose: 3 ml Famotidine (Pepcid) 20 mg PO DAILY [facility] Last Admin: 05/02/17 15:04 Dose: Not Given Guaifenesin (Robitussin) 100 mg PO Q4H PRN PRN Reason: Cough Last Admin: 05/01/17 20:31 Dose: 100 mg Heparin Sodium (Porcine) (Heparin) 5,000 units SC Q8 [facility] PRN Reason: Protocol Last Admin: 05/02/17 15:04 Dose: Not Given Sodium Chloride (Sodium Chloride 0.9%) 1,000 mls @ 100 mls/hr IV .Q10H [facility] Last Admin: 05/01/17 04:16 Dose: 100 mls/hr Vancomycin HCl (Vancomycin 1gm) 1 gm in 250 mls @ 167 mls/hr IVPB Q12H [facility] PRN Reason: Protocol Last Admin: 05/02/17 13:17 Dose: 167 mls/hr Piperacillin Sod/Tazobactam Sod (Zosyn 3.375 In Ns 100ml) 100 mls @ 200 mls/hr IVPB Q6 [facility] PRN Reason: Protocol Last Admin: 05/02/17 12:24 Dose: 200 mls/hr Nicotine (Nicoderm Cq) 1 patch TD DAILY PRN PRN Reason: URGE TO SMOKE Last Admin: 04/30/17 09:13 Dose: 1 patch Oxycodone/Acetaminophen (Percocet 5/325 Mg Tab) 1 tab PO Q6H PRN PRN Reason: Pain, severe (8-10) Stop: 05/05/17 13:49 Last Admin: 05/02/17 14:05 Dose: 1 tab - Labs Labs: 05/02/17 06:00 05/02/17 06:00 Attending/Attestation - Attestation I have personally seen and examined this patient.: Yes I have fully participated in the care of the patient.: Yes I have reviewed all pertinent clinical information, including history, physical exam and plan: Yes Notes (Text): 05/02/17 15:47 attending note; Patient seen and examined with the resident. Patient is alert, awake and oriented. Patient is 51-year-old male with PMH of IV drug abuse was admitted with sepsis due to left antecubital fossa cellulitis and suspected absces. Currently on IV vancomycin and Zosyn. ID evaluation appreciated. Status post incision and drainage today. Follow-up culture results. Blood cultures are negative so far. HIV is negative. Hepatitis C antibodies positive. Results given to the patient. Advised to follow -up with [facility] hepatology clinic. complete drug abuse cessation is strongly advised. Active smoking; placed on NicoDerm patch. Complete smoking cessation is strongly advised. Patient does not have a PMD in [place]. Recently moved from [place]. advised to follow-up with PMD of choice.
[2017-05-02] MEDS ORDERED: Oxycodone/Acetaminophen 5/325 mg Tab PO PRN (13:48)
--- NOTE | 2017-05-02 15:39 | CP.PCM.DIS ---
<Hao Wagner - Last Filed: 05/02/17 17:05> Provider - Provider Date of Admission: 04/30/17 00:22 Attending physician: Brenda Reed MD Primary care physician: NO PRIMARY CARE PROVIDER Time Spent in preparation of Discharge (in minutes): 40 Hospital Course - Lab Results Lab Results: Most Recent Lab Values WBC 9.1 10^3/ul (4.5-11.0) 05/02/17 06:00 RBC 4.13 10^6/uL (3.5-6.1) 05/02/17 06:00 Hgb 12.7 g/dL (14.0-18.0) L 05/02/17 06:00 Hct 37.1 % (42.0-52.0) L 05/02/17 06:00 MCV 89.8 fl (80.0-105.0) 05/02/17 06:00 MCH 30.8 pg (25.0-35.0) 05/02/17 06:00 MCHC 34.2 g/dl (31.0-37.0) 05/02/17 06:00 RDW 14.0 % (11.5-14.5) 05/02/17 06:00 Plt Count 242 10^3/uL (120.0-450.0) 05/02/17 06:00 MPV 9.2 fl (7.0-11.0) 05/02/17 06:00 Gran % 74.9 % (50.0-68.0) H 05/02/17 06:00 Lymph % (Auto) 18.0 % (22.0-35.0) L 05/02/17 06:00 Cloud % (Auto) 5.8 % (1.0-6.0) 05/02/17 06:00 Eos % (Auto) 1.1 % (1.5-5.0) L 05/02/17 06:00 Baso % (Auto) 0.2 % (0.0-3.0) 05/02/17 06:00 Gran # 6.83 (1.4-6.5) H 05/02/17 06:00 Lymph # 1.6 (1.2-3.4) 05/02/17 06:00 Cloud # 0.5 (0.1-0.6) 05/02/17 06:00 Eos # 0.1 (0.0-0.7) 05/02/17 06:00 Baso # 0.02 K/mm3 (0.0-2.0) 05/02/17 06:00 pO2 35 mm/Hg (30-55) 04/29/17 22:55 VBG pH 7.42 (7.32-7.43) 04/29/17 22:55 VBG pCO2 46.0 (40-60) 04/29/17 22:55 VBG HCO3 29.8 mmol/l (21-28) H 04/29/17 22:55 VBG Total CO2 31.2 mmol.L (22-28) H 04/29/17 22:55 VBG O2 Sat (Calc) 81.7 % (40-65) H 04/29/17 22:55 VBG Base Excess 4.5 mmol/L (0.0-2.0) H 04/29/17 22:55 VBG Potassium 4.0 mmol/L (3.6-5.2) 04/29/17 22:55 Sodium 138.0 mmol/L (132-148) 04/29/17 22:55 Chloride 103.0 mmol/L (98-107) 04/29/17 22:55 Glucose 111 mg/dl (75-110) H 04/29/17 22:55 Lactate 1.7 mmol/L (0.7-2.1) 04/29/17 22:55 FiO2 21.0 % 04/29/17 22:55 Sodium 142 mmol/L (132-148) 05/02/17 06:00 Potassium 4.2 mmol/L (3.6-5.0) 05/02/17 06:00 Chloride 110 mmol/L (98-107) H 05/02/17 06:00 Carbon Dioxide 23 mmol/L (21-33) 05/02/17 06:00 Anion Gap 12 (10-20) 05/02/17 06:00 BUN 7 mg/dL (7-21) 05/02/17 06:00 Creatinine 0.6 mg/dl (0.8-1.5) L 05/02/17 06:00 Est GFR ( Amer) > 60 05/02/17 06:00 Est GFR (Non-Af Amer) > 60 05/02/17 06:00 Random Glucose 109 mg/dL (70-110) 05/02/17 06:00 Hemoglobin A1c 5.6 % (4.2-6.5) 04/30/17 01:10 Calcium 8.8 mg/dL (8.4-10.5) 05/02/17 06:00 Total Bilirubin 0.7 mg/dL (0.2-1.3) 05/02/17 06:00 AST 99 U/L (17-59) H D 05/02/17 06:00 ALT 117 U/L (7-56) H 05/02/17 06:00 Alkaline Phosphatase 93 U/L (38-126) 05/02/17 06:00 Lactate Dehydrogenase 396 U/L (333-699) 04/29/17 22:55 Total Creatine Kinase 103 U/L (35-230) 04/29/17 22:55 Troponin I < 0.01 ng/mL 04/29/17 22:55 Total Protein 6.8 g/dL (5.8-8.3) 05/02/17 06:00 Albumin 3.2 g/dL (3.0-4.8) 05/02/17 06:00 Globulin 3.6 gm/dL 05/02/17 06:00 Albumin/Globulin Ratio 0.9 (1.1-1.8) L 05/02/17 06:00 Triglycerides 96 mg/dL (35-160) 04/30/17 01:10 Cholesterol 123 mg/dL (130-200) L 04/30/17 01:10 LDL Cholesterol Direct 74 mg/dL (0-129) 04/30/17 01:10 HDL Cholesterol 26 mg/dL (29-60) L 04/30/17 01:10 Venous Blood Potassium 4.0 mmol/L (3.6-5.2) 04/29/17 22:55 Urine Color Yellow (YELLOW) 04/29/17 22:55 Urine Appearance Clear (CLEAR) 04/29/17 22:55 Urine pH 6.5 (4.7-8.0) 04/29/17 22:55 Ur Specific [place] 1.020 (1.005-1.035) 04/29/17 22:55 Urine Protein Negative mg/dL (<30 mg/dL) 04/29/17 22:55 Urine Glucose (UA) Negative mg/dL (NEGATIVE) 04/29/17 22:55 Urine Ketones Trace mg/dL (NEGATIVE) H 04/29/17 22:55 Urine Blood Negative (NEGATIVE) 04/29/17 22:55 Urine Nitrate Negative (NEGATIVE) 04/29/17 22:55 Urine Bilirubin Negative (NEGATIVE) 04/29/17 22:55 Urine Urobilinogen 2.0 E.U./dL (<1 E.U./dL) H 04/29/17 22:55 Ur Leukocyte Esterase Negative Sofi/uL (NEGATIVE) 04/29/17 22:55 Hepatitis A IgM Ab Negative (NEGATIVE) 04/30/17 07:30 Hep Bs Antigen Negative (NEGATIVE) 04/30/17 07:30 Hep B Core IgM Ab Negative (NEGATIVE) 04/30/17 07:30 Hepatitis C Antibody Reactive (NEGATIVE) 04/30/17 07:30 HIV 1&2 Antibody Screen Negative (NEGATIVE) 04/30/17 06:00 Ur L.pneumophila Ag Negative (NEGATIVE) 05/01/17 13:12 - Hospital Course Hospital Course: Patient decided to leave [facility] despite being warned of consequences of discontinuing IV antibiotics including but not limited to : bacteremia, worsening of infection in arm, re-infection of wound site. Patient states he must leave because his son is getting into trouble and he might lose his job because he can't take another day off from work. Patient states he is aware of the consequences. Was instructed to take Doxycycline and Augmentin both twice a day for the next 7 days since he will no longer be able to receive IV antibiotic treatment. Please refer to progress notes as well as history and physical for further information. Discharge Exam - Head Exam Head Exam: ATRAUMATIC, NORMAL INSPECTION, NORMOCEPHALIC Discharge Plan - Discharge Medications Prescriptions: Amoxicillin/Clavulanate [Augmentin 875 MG-125 MG] 1 tab PO BID 7 Days #14 tab Doxycycline Hyclate 100 mg PO BID 7 Days #14 capsule - Follow Up Plan Condition: FAIR Disposition: HOME/ ROUTINE Instructions: Cellulitis (ED) Referrals: PCP,NO [Primary Care Provider] - <Perla Maldonado - Last Filed: 05/02/17 17:32> Provider - Provider Date of Admission: 04/30/17 00:22 Attending physician: Brenda Reed MD Primary care physician: NO PRIMARY CARE PROVIDER Hospital Course - Lab Results Lab Results: Most Recent Lab Values WBC 9.1 10^3/ul (4.5-11.0) 05/02/17 06:00 RBC 4.13 10^6/uL (3.5-6.1) 05/02/17 06:00 Hgb 12.7 g/dL (14.0-18.0) L 05/02/17 06:00 Hct 37.1 % (42.0-52.0) L 05/02/17 06:00 MCV 89.8 fl (80.0-105.0) 05/02/17 06:00 MCH 30.8 pg (25.0-35.0) 05/02/17 06:00 MCHC 34.2 g/dl (31.0-37.0) 05/02/17 06:00 RDW 14.0 % (11.5-14.5) 05/02/17 06:00 Plt Count 242 10^3/uL (120.0-450.0) 05/02/17 06:00 MPV 9.2 fl (7.0-11.0) 05/02/17 06:00 Gran % 74.9 % (50.0-68.0) H 05/02/17 06:00 Lymph % (Auto) 18.0 % (22.0-35.0) L 05/02/17 06:00 Cloud % (Auto) 5.8 % (1.0-6.0) 05/02/17 06:00 Eos % (Auto) 1.1 % (1.5-5.0) L 05/02/17 06:00 Baso % (Auto) 0.2 % (0.0-3.0) 05/02/17 06:00 Gran # 6.83 (1.4-6.5) H 05/02/17 06:00 Lymph # 1.6 (1.2-3.4) 05/02/17 06:00 Cloud # 0.5 (0.1-0.6) 05/02/17 06:00 Eos # 0.1 (0.0-0.7) 05/02/17 06:00 Baso # 0.02 K/mm3 (0.0-2.0) 05/02/17 06:00 pO2 35 mm/Hg (30-55) 04/29/17 22:55 VBG pH 7.42 (7.32-7.43) 04/29/17 22:55 VBG pCO2 46.0 (40-60) 04/29/17 22:55 VBG HCO3 29.8 mmol/l (21-28) H 04/29/17 22:55 VBG Total CO2 31.2 mmol.L (22-28) H 04/29/17 22:55 VBG O2 Sat (Calc) 81.7 % (40-65) H 04/29/17 22:55 VBG Base Excess 4.5 mmol/L (0.0-2.0) H 04/29/17 22:55 VBG Potassium 4.0 mmol/L (3.6-5.2) 04/29/17 22:55 Sodium 138.0 mmol/L (132-148) 04/29/17 22:55 Chloride 103.0 mmol/L (98-107) 04/29/17 22:55 Glucose 111 mg/dl (75-110) H 04/29/17 22:55 Lactate 1.7 mmol/L (0.7-2.1) 04/29/17 22:55 FiO2 21.0 % 04/29/17 22:55 Sodium 142 mmol/L (132-148) 05/02/17 06:00 Potassium 4.2 mmol/L (3.6-5.0) 05/02/17 06:00 Chloride 110 mmol/L (98-107) H 05/02/17 06:00 Carbon Dioxide 23 mmol/L (21-33) 05/02/17 06:00 Anion Gap 12 (10-20) 05/02/17 06:00 BUN 7 mg/dL (7-21) 05/02/17 06:00 Creatinine 0.6 mg/dl (0.8-1.5) L 05/02/17 06:00 Est GFR ( Amer) > 60 05/02/17 06:00 Est GFR (Non-Af Amer) > 60 05/02/17 06:00 Random Glucose 109 mg/dL (70-110) 05/02/17 06:00 Hemoglobin A1c 5.6 % (4.2-6.5) 04/30/17 01:10 Calcium 8.8 mg/dL (8.4-10.5) 05/02/17 06:00 Total Bilirubin 0.7 mg/dL (0.2-1.3) 05/02/17 06:00 AST 99 U/L (17-59) H D 05/02/17 06:00 ALT 117 U/L (7-56) H 05/02/17 06:00 Alkaline Phosphatase 93 U/L (38-126) 05/02/17 06:00 Lactate Dehydrogenase 396 U/L (333-699) 04/29/17 22:55 Total Creatine Kinase 103 U/L (35-230) 04/29/17 22:55 Troponin I < 0.01 ng/mL 04/29/17 22:55 Total Protein 6.8 g/dL (5.8-8.3) 05/02/17 06:00 Albumin 3.2 g/dL (3.0-4.8) 05/02/17 06:00 Globulin 3.6 gm/dL 05/02/17 06:00 Albumin/Globulin Ratio 0.9 (1.1-1.8) L 05/02/17 06:00 Triglycerides 96 mg/dL (35-160) 04/30/17 01:10 Cholesterol 123 mg/dL (130-200) L 04/30/17 01:10 LDL Cholesterol Direct 74 mg/dL (0-129) 04/30/17 01:10 HDL Cholesterol 26 mg/dL (29-60) L 04/30/17 01:10 Venous Blood Potassium 4.0 mmol/L (3.6-5.2) 04/29/17 22:55 Urine Color Yellow (YELLOW) 04/29/17 22:55 Urine Appearance Clear (CLEAR) 04/29/17 22:55 Urine pH 6.5 (4.7-8.0) 04/29/17 22:55 Ur Specific [place] 1.020 (1.005-1.035) 04/29/17 22:55 Urine Protein Negative mg/dL (<30 mg/dL) 04/29/17 22:55 Urine Glucose (UA) Negative mg/dL (NEGATIVE) 04/29/17 22:55 Urine Ketones Trace mg/dL (NEGATIVE) H 04/29/17 22:55 Urine Blood Negative (NEGATIVE) 04/29/17 22:55 Urine Nitrate Negative (NEGATIVE) 04/29/17 22:55 Urine Bilirubin Negative (NEGATIVE) 04/29/17 22:55 Urine Urobilinogen 2.0 E.U./dL (<1 E.U./dL) H 04/29/17 22:55 Ur Leukocyte Esterase Negative Sofi/uL (NEGATIVE) 04/29/17 22:55 Hepatitis A IgM Ab Negative (NEGATIVE) 04/30/17 07:30 Hep Bs Antigen Negative (NEGATIVE) 04/30/17 07:30 Hep B Core IgM Ab Negative (NEGATIVE) 04/30/17 07:30 Hepatitis C Antibody Reactive (NEGATIVE) 04/30/17 07:30 HIV 1&2 Antibody Screen Negative (NEGATIVE) 04/30/17 06:00 Ur L.pneumophila Ag Negative (NEGATIVE) 05/01/17 13:12 Attending/Attestation - Attestation I have personally seen and examined this patient.: Yes I have fully participated in the care of the patient.: Yes I have reviewed all pertinent clinical information, including history, physical exam and plan: Yes Notes (Text): 05/02/17 17:22 attending note; Patient seen and examined with the resident. Patient is alert, awake and oriented. Patient is 51-year-old male with PMH of IV drug abuse was admitted with sepsis due to left antecubital fossa cellulitis and suspected absces. Currently on IV vancomycin and Zosyn. ID evaluation appreciated. Status post incision and drainage today. Follow-up culture results. Blood cultures are negative so far. HIV is negative. Hepatitis C antibodies positive. Results given to the patient. Advised to follow -up with [facility] hepatology clinic. complete drug abuse cessation is strongly advised. Active smoking; placed on NicoDerm patch. Complete smoking cessation is strongly advised. Patient does not have a PMD in [place]. Recently moved from [place]. after incision and drainage patient signed AGAINST MEDICAL ADVICE. Prognosis is poor secondary to continuous drug abuse and noncompliance with follow-up. Diagnosis; Left anterior cubital fossa abscess IV drug abuse Hepatitis C Noncompliance with follow-up 05/02/17 17:30
== END 2017-05-02 16:21 | disposition home or self-care (01) | DRG 603 ==
LOC: ED 22:06 → ERH 04-30 00:22 → 5RSO 04-30 02:06
PROVIDERS: ADMIT Internal Medicine; ATTEND Internal Medicine
PROC: 0J9F3ZX Drainage of Left Upper Arm Subcutaneous Tissue and Fascia, Percutaneous Approach, Diagnostic (ICD-10-PCS; principal; 2017-05-02)
DX: L02.414 Cutaneous abscess of left upper limb (principal); L03.114 Cellulitis of left upper limb; F11.10 Opioid abuse, uncomplicated; B19.20 Unspecified viral hepatitis C without hepatic coma; J45.909 Unspecified asthma, uncomplicated; F17.210 Nicotine dependence, cigarettes, uncomplicated; D64.9 Anemia, unspecified; Z91.19 Patient's noncompliance with other medical treatment and regimen

== ENCOUNTER 2017-07-29 17:22 | Emergency (ER) | payer MEDICAID, OTHER ==
[2017-07-29 17:24] VITALS: BMI 21.9
[2017-07-29 17:49] VITALS: BP 100/67; PULSE 78; RESP 18; TEMP 98.3; O2SAT 99
--- NOTE | 2017-07-29 18:16 | ED PDOC ---
Arrival/HPI - General Chief Complaint: Abnormal Skin Integrity Time Seen by Provider: 07/29/17 17:58 Historian: Patient - History of Present Illness Narrative History of Present Illness (Text): 07/29/17 18:13 51yo male with history off IV drug use who present with complaint of right anticubital abscess. States abscess started 4days ago, where he injects himself. states he was seen at [place] today and it was I & D. He was DC home with Bactrim DS prescription. He came to Emergency department today stating he was not given any pain medication. Reports pain to the area. He otherwise denies fever, chills, nausea, vomiting, any other complaint. He did not fill his prescription. Past Medical History - Provider Review Nursing Documentation Reviewed: Yes - Infectious Disease Hx of Infectious Diseases: None - Cardiac Hx Hypertension: No - Pulmonary Hx Asthma: Yes - Neurological Hx Seizures: No - HEENT Hx HEENT Disorder: No - Renal Hx Renal Disorder: No - Endocrine/Metabolic Hx Endocrine Disorders: No - Hematological/Oncological Hx Cancer: No - Integumentary Hx Dermatological Disorder: No - Musculoskeletal/Rheumatological Hx Musculoskeletal Disorders: No - Gastrointestinal Hx Gastrointestinal Disorders: No - Genitourinary/Gynecological Hx Sexually Transmitted Diseases: No - Psychiatric Hx Anxiety: Yes Hx Depression: Yes Hx Substance Use: Yes (heroin) - Anesthesia Hx Anesthesia: No Hx Anesthesia Reactions: No Hx Malignant Hyperthermia: No Family/Social History - Physician Review Nursing Documentation Reviewed: Yes Family/Social History: Unknown Family HX Smoking Status: Current Some Days Smoker Hx Alcohol Use: No Hx Substance Use: Yes (heroin) Substance used: Heroin Allergies/Home Meds Allergies/Adverse Reactions: Allergies No Known Allergies Allergy (Verified 07/29/17 17:40) Review of Systems - Physician Review All systems were reviewed & negative as marked: Yes - Review of Systems Constitutional: Normal Eyes: Normal ENT: Normal Respiratory: Normal Cardiovascular: Normal Gastrointestinal: Normal Genitourinary Male: Normal Musculoskeletal: Arthralgias (Right cubital arm) Skin: Normal Neurological: Normal Endocrine: Normal Hemo/Lymphatic: Normal Psychiatric: Normal Physical Exam Vital Signs Reviewed: Yes Vital Signs Temp Pulse Resp BP Pulse Ox 07/29/17 17:48 98.3 F 78 18 100/67 99 07/29/17 17:34 98.3 F 78 20 100/67 98 Temperature: Afebrile Blood Pressure: Normal Pulse: Regular Respiratory Rate: Normal Appearance: Positive for: Well-Appearing, Non-Toxic, Comfortable Pain Distress: None Mental Status: Positive for: Alert and Oriented X 3 - Systems Exam Head: Present: Atraumatic, Normocephalic Pupils: Present: PERRL Extroacular Muscles: Present: EOMI Conjunctiva: Present: Normal Mouth: Present: Moist Mucous Membranes Neck: Present: Normal Range of Motion Respiratory/Chest: Present: Clear to Auscultation, Good Air Exchange. No: Respiratory Distress, Accessory Muscle Use Cardiovascular: Present: Regular Rate and Rhythm, Normal S1, S2. No: Murmurs Abdomen: Present: Normal Bowel Sounds. No: Tenderness, Distention, Peritoneal Signs Back: Present: Normal Inspection Upper Extremity: Present: Tenderness (To right anticubital area with approximately 2 x 2cm induration and overlaying erythema. No warmth. No crepitus. No streak.). No: Cyanosis, Edema Lower Extremity: Present: Normal Inspection. No: Edema Neurological: Present: GCS=15, CN II-XII Intact, Speech Normal Skin: Present: Warm, Dry, Normal Color. No: Rashes Psychiatric: Present: Alert, Oriented x 3, Normal Insight, Normal Concentration Medical Decision Making ED Course and Treatment: 07/30/17 01:35 Wound was dressed. Pt requesting narcotic in Emergency department. exhibiting frug seeking behavior. He was given Naprosyn and Bactrim DC rx at [place] and was advised to fill the medication and take as directed. Toradol was given in Emergency department. He was hemodynamically stable and stable for DC. - Medication Orders Current Medication Orders: Discontinued Medications Ketorolac Tromethamine (Toradol) 60 mg IM STAT STA Stop: 07/29/17 18:13 Last Admin: 07/29/17 18:41 Dose: Not Given Non-Admin Reason: Patient Refused Disposition/Present on Arrival - Present on Arrival Any Indicators Present on Arrival: No History of DVT/PE: No History of Uncontrolled Diabetes: No Urinary Catheter: No History of Decub. Ulcer: No History Surgical Site Infection Following: None - Disposition Have Diagnosis and Disposition been Completed?: Yes Diagnosis: Abscess, Arm pain Disposition: HOME/ ROUTINE Disposition Time: 18:20 Patient Plan: Discharge Condition: STABLE Discharge Instructions (ExitCare): Skin Abscess Additional Instructions: Fill your prescription and take as directed Follow up with your doctor Return to Emergency department for any new or worsening symptoms Referrals: PCP,NO [Primary Care Provider] - Follow up with primary [facility] [Outside] - Follow up with primary Forms: [employer] (Armenian)
== END 2017-07-29 18:44 | disposition home or self-care (01) ==
LOC: ED 17:22
DX: L02.413 Cutaneous abscess of right upper limb (principal); M79.601 Pain in right arm; F17.200 Nicotine dependence, unspecified, uncomplicated

== ENCOUNTER 2017-09-10 18:51 | Inpatient (IN) | payer OTHER, MEDICAID ==
[2017-09-10] MEDS ORDERED: Vancomycin 500 mg Inj IV STA (20:16)
[2017-09-10] MEDS ORDERED: Piperacillin/Tazobact 3.375 gm 100 ML IVPB STA (20:16)
[2017-09-10] MEDS ORDERED: Vancomycin 1gm in NS 250ml 1 GM/250 ML BAG IVPB STA (20:21)
--- NOTE | 2017-09-10 20:24 | ED PDOC ---
Arrival/HPI - General Chief Complaint: Upper Extremity Problem/Injury Time Seen by Provider: 09/10/17 20:14 Historian: Patient - History of Present Illness Narrative History of Present Illness (Text): 09/10/17 20:20 51 year old male, no significant pmh, psychiatric history including drug abuse , complaining of rt. forearm redness and pain x 1 week with no fall or trauma. Pt. stated that he has chronic drug abuse, trying to IV inject to the rt. forearm about 1 week ago, was seen at the [facility] and placed on the oral antibiotics with limited relief, had 2 I&D done at [facility] Emergency room, no fever or chills, no night sweat, no rash, no numbness or tingling, no other medical or psychological complaints. Past Medical History - Provider Review Nursing Documentation Reviewed: Yes - Infectious Disease Hx of Infectious Diseases: None - Cardiac Hx Hypertension: No - Pulmonary Hx Asthma: Yes - Neurological Hx Seizures: No - HEENT Hx HEENT Disorder: No - Renal Hx Renal Disorder: No - Endocrine/Metabolic Hx Endocrine Disorders: No - Hematological/Oncological Hx Cancer: No - Integumentary Hx Dermatological Disorder: No - Musculoskeletal/Rheumatological Hx Musculoskeletal Disorders: No - Gastrointestinal Hx Gastrointestinal Disorders: No - Genitourinary/Gynecological Hx Sexually Transmitted Diseases: No - Psychiatric Hx Anxiety: Yes Hx Depression: Yes Hx Substance Use: Yes (heroin) - Anesthesia Hx Anesthesia: No Hx Anesthesia Reactions: No Hx Malignant Hyperthermia: No Family/Social History - Physician Review Nursing Documentation Reviewed: Yes Family/Social History: Unknown Family HX Smoking Status: Current Some Days Smoker Hx Alcohol Use: No Hx Substance Use: Yes (heroin) Substance used: Heroin Allergies/Home Meds Allergies/Adverse Reactions: Allergies No Known Allergies Allergy (Verified 09/05/17 10:59) Review of Systems - Review of Systems Constitutional: absent: Fatigue, Fevers Eyes: absent: Vision Changes ENT: absent: Hearing Changes Respiratory: absent: SOB, Cough Cardiovascular: absent: Chest Pain Gastrointestinal: absent: Abdominal Pain, Nausea, Vomiting Skin: Rash, Skin Lesions, Abscess, Cellulitis. absent: Pruritis Neurological: absent: Headache, Dizziness Psychiatric: absent: Anxiety, Depression, Suicidal Ideation Physical Exam Temperature: Afebrile Blood Pressure: Normal Pulse: Regular Respiratory Rate: Normal Appearance: Positive for: Well-Appearing, Non-Toxic, Comfortable Pain Distress: Moderate Mental Status: Positive for: Alert and Oriented X 3 - Systems Exam Head: Present: Atraumatic, Normocephalic Pupils: Present: PERRL Extroacular Muscles: Present: EOMI Conjunctiva: Present: Normal Mouth: Present: Moist Mucous Membranes Neck: Present: Normal Range of Motion Respiratory/Chest: Present: Clear to Auscultation, Good Air Exchange. No: Respiratory Distress, Accessory Muscle Use Cardiovascular: Present: Regular Rate and Rhythm, Normal S1, S2. No: Murmurs Abdomen: No: Tenderness, Distention, Peritoneal Signs Back: Present: Normal Inspection Upper Extremity: Present: Normal Inspection, Other (RUE: visible I&D wound noted with surrounding cellulitis noted on the proximal forearm streaking up to the humeral and distal forearm region, no fluctuant abscess, no ulcers, +radial pulse, capillary refill< 2 seconds, neurovascular intact. ). No: Cyanosis, Edema Lower Extremity: Present: Normal Inspection. No: Edema Neurological: Present: GCS=15, Speech Normal, Motor Func Grossly Intact, Gait Normal, Memory Normal Skin: Present: Warm, Dry, Normal Color. No: Rashes Psychiatric: Present: Alert, Oriented x 3, Normal Insight, Normal Concentration Medical Decision Making ED Course and Treatment: 09/10/17 20:25 -Labs/blood culture -RUE Venuous doppler -Rt. elbow xray -IV vancomycin/zosyn/toradol -Observe and reassess 09/11/17 00:09 -RUE Venuous Doppler: as per preliminary report, no acute DVT -Rt. elbow xray: no fracture/dislocation/free gas -Labs show no acute findings except wbc 11.9 -Pt. fail the outpatient oral antibiotic, will need admission for IV antibiotic , medical appointment clerk and paged. 09/11/17 00:10 -I discussed the case/labs/radiology result with the admitting doctor Dr. Erasto Moore and Dr. Lewis (medical appointment clerk), agreed to admit to the hospitalist service. -I discussed the case with Dr. Fofana and agreed on the admission/treatment plan, he will put in the admission order. - Lab Interpretations Lab Results: 09/10/17 23:20 09/10/17 23:20 Lab Results 09/10/17 23:20: WBC 11.9 H D, RBC 3.83, Hgb 11.7 L, Hct 34.9 L, MCV 91.1, MCH 30.5, MCHC 33.5, RDW 14.9 H, Plt Count 232, MPV 8.8, Gran % 67.2, Lymph % (Auto ) 22.7, [place] % (Auto) 7.7 H, Eos % (Auto) 2.1, Baso % (Auto) 0.3, Gran # 8.02 H , Lymph # (Auto) 2.7, [place] # (Auto) 0.9 H, Eos # (Auto) 0.3, Baso # (Auto) 0.03 , ESR Pending 09/10/17 23:20: Sodium 141, Potassium 4.5, Chloride 100, Carbon Dioxide 34 H, Anion Gap 12, BUN 20, Creatinine 0.8, Est GFR ( Amer) > 60, Est GFR (Non- Af Amer) > 60, Random Glucose 110, Calcium 9.2, Magnesium 2.2, Total Bilirubin 0.3, AST 72 H D, ALT 163 H, Alkaline Phosphatase 96, Total Protein 7.3, Albumin 3.8, Globulin 3.5, Albumin/Globulin Ratio 1.1 - RAD Interpretation Radiology Orders: 09/10/17 20:19 ELBOW RIGHT 3 VIEWS ROUTINE [RAD] Stat DUPLEX UPPER EXTRM VEIN RIGHT [US] Stat Rt. elbow: --------- RUE Venous doppler: as per preliminary report, no acute dvt Desktop Publishing Specialist: Radiologist - Medication Orders Current Medication Orders: Sodium Chloride (Sodium Chloride 0.9%) 1,000 mls @ 100 mls/hr IV .Q10H ARCELIA Discontinued Medications Piperacillin Sod/Tazobactam Sod (Zosyn 3.375 In Ns 100ml) 100 mls @ 200 mls/hr IVPB STAT STA PRN Reason: Protocol Stop: 09/10/17 20:45 Last Admin: 09/11/17 00:02 Dose: 200 mls/hr eMAR Start Stop Document 09/11/17 00:02 PETR (Rec: 09/11/17 00:03 PETR [id number]) Intravenous Solution Start Date 09/11/17 Start Time 00:03 Vancomycin HCl (Vancomycin 1gm) 1 gm in 250 mls @ 167 mls/hr IVPB STAT STA Stop: 09/10/17 21:50 Ketorolac Tromethamine (Toradol) 30 mg IVP STAT STA Stop: 09/10/17 20:17 Last Admin: 09/11/17 00:01 Dose: 30 mg MAR Pain Assessment Document 09/11/17 00:01 PETR (Rec: 09/11/17 00:02 PETR [id number]) Pain Reassessment Is this a pain reassessment? Yes Presence of Pain Presence of Pain Yes Location Left, Right or Bilateral Bilateral Pain Location Body Site Arm IVP Administration Document 09/11/17 00:01 PETR (Rec: 09/11/17 00:02 PETR [id number]) Charges for Administration # of IVP Administrations 1 - PA / SEASONAL GREENERY BUNDLER / Resident Statement MD/DO has reviewed & agrees with the documentation as recorded. Disposition/Present on Arrival - Present on Arrival Any Indicators Present on Arrival: No History of DVT/PE: No History of Uncontrolled Diabetes: No Urinary Catheter: No History of Decub. Ulcer: No History Surgical Site Infection Following: None - Disposition Have Diagnosis and Disposition been Completed?: Yes Diagnosis: Failure of outpatient treatment, Drug abuse, Cellulitis and abscess of other specified site Disposition: HOSPITALIZED Disposition Time: 20:26 Patient Plan: Admission Patient Problems: Current Active Problems Problem Status Onset Cellulitis and abscess of other specified site Acute Drug abuse Acute Failure of outpatient treatment Acute Condition: STABLE Discharge Instructions (ExitCare): Cellulitis (ED) Referrals: PCP,NO [Primary Care Provider] - Follow up with primary Forms: [employer] (Macedonian)
[2017-09-10] MEDS ORDERED: Sodium Chloride 0.9% 1,000 ML IV SCH (20:30)
[2017-09-10 23:32] LABS: BASO # 0.03 K/mm3 (0.0-2.0); BASO % 0.3 % (0.0-3.0); EOS # 0.3 (0.0-0.7); EOS % 2.1 % (1.5-5.0); GRAN # 8.02 (1.4-6.5); GRAN % 67.2 % (50.0-68.0); HEMOGLOBIN 11.7 g/dL (14.0-18.0); LYMPH # 2.7 (1.2-3.4); LYMPH % 22.7 % (22.0-35.0); MEAN CELL VOLUME 91.1 fl (80.0-105.0); MEAN CORPUSCULAR HEMOGLOBIN 30.5 pg (25.0-35.0); MEAN CORPUSCULAR HGB CONC 33.5 g/dl (31.0-37.0); MEAN PLATELET VOLUME 8.8 fl (7.0-11.0); MONO # 0.9 (0.1-0.6); MONO % 7.7 % (1.0-6.0); RBC 3.83 10^6/uL (3.5-6.1); RED CELL DISTRIBUTION WIDTH 14.9 % (11.5-14.5); WHITE BLOOD COUNT 11.9 10^3/ul (4.5-11.0)
[2017-09-10 23:59] LABS: ALB/GLOB RATIO 1.1 (1.1-1.8); ALBUMIN 3.8 g/dL (3.0-4.8); ALT/SGPT 163 U/L (7-56); AST/SGOT 72 U/L (17-59); BLOOD UREA NITROGEN 20 mg/dL (7-21); CALCIUM 9.2 mg/dL (8.4-10.5); GFR AFRICAN-AMERICAN > 60; GFR NON-AFRICAN AMERICAN > 60
[2017-09-11] MEDS ORDERED: Morphine 4 mg/ml ISec IVP STA (00:44)
[2017-09-11] MEDS: Sodium Chloride 0.9% 1,000 ML IV SCH ×2 (01:30→16:21)
[2017-09-11 02:37] VITALS: BMI 21.9
[2017-09-11] MEDS ORDERED: Vancomycin 1gm in NS 250ml 1 GM/250 ML BAG IVPB STA (02:55)
[2017-09-11] MEDS ORDERED: Levalbuterol 1.25 MG/3 ML Inhal Soln UD IH PRN (04:34)
--- NOTE | 2017-09-11 04:34 | CP.PCM.HP ---
History of Present Illness - History of Present Illness History of Present Illness: Medicine H&P: Dr. Erasto Moore Chief Complaint: Right forearm pain HPI: 51 year old male with past medical history of IV heroin abuse and asthma who presents with erythema/swelling to the right forearm with associated sharp localized pain. Patient states that he has had two I&D's with limited relief in the area. Patient admits that he has injected heroin here in the past. Patient complains of excruciating pain but denies loss of pulses or functionality. He further denies fevers or chills. ROS: 12 point review of systems negative except as per HPI PMHx: IVDA and asthma PSHx: Denies Family Hx: Denies Social Hx: Denies alcohol, smokes 4-5 cigarretes per day for 20 years, admits to IV heroin Medications: Reviewed, see MAR PMD: Denies Pharmacy: Denies Present on Admission - Present on Admission Any Indicators Present on Admission: No Past Patient History - Infectious Disease Hx of Infectious Diseases: None - Past Medical History & Family History Past Medical History?: Yes - Past Social History Smoking Status: Smoker Currrent Status Unknown - CARDIAC Hx Cardiac Disorders: No - PULMONARY Hx Respiratory Disorders: Yes Hx Asthma: Yes - NEUROLOGICAL Hx Neurological Disorder: No - HEENT Hx HEENT Problems: No - RENAL Hx Chronic Kidney Disease: No - ENDOCRINE/METABOLIC Hx Endocrine Disorders: No - HEMATOLOGICAL/ONCOLOGICAL Hx Blood Disorders: No - INTEGUMENTARY Hx Dermatological Problems: No - MUSCULOSKELETAL/RHEUMATOLOGICAL Hx Musculoskeletal Disorders: No Hx Falls: No - GASTROINTESTINAL Hx Gastrointestinal Disorders: No - GENITOURINARY/GYNECOLOGICAL Hx Genitourinary Disorders: No - PSYCHIATRIC Hx Psychophysiologic Disorder: Yes Hx Anxiety: Yes Hx Depression: Yes Hx Substance Use: Yes - SURGICAL HISTORY Hx Surgeries: No - ANESTHESIA Hx Anesthesia: No Hx Anesthesia Reactions: No Hx Malignant Hyperthermia: No Meds Allergies/Adverse Reactions: Allergies Allergy/AdvReac Type Severity Reaction Status Date / Time No Known Allergies Allergy Verified 09/05/17 10:59 Physical Exam - Constitutional Appears: Well - Head Exam Head Exam: ATRAUMATIC, NORMAL INSPECTION, NORMOCEPHALIC - Eye Exam Eye Exam: EOMI, Normal appearance, PERRL Pupil Exam: NORMAL ACCOMODATION, PERRL - ENT Exam ENT Exam: Mucous Membranes Moist, Normal Exam - Neck Exam Neck exam: Positive for: Normal Inspection - Respiratory Exam Respiratory Exam: Clear to Auscultation Bilateral, NORMAL BREATHING PATTERN - Cardiovascular Exam Cardiovascular Exam: REGULAR RHYTHM - GI/Abdominal Exam GI & Abdominal Exam: Normal Bowel Sounds, Soft. absent: Tenderness - Extremities Exam Extremities exam: Positive for: normal capillary refill, tenderness, pedal pulses present. Negative for: normal inspection Additional comments: HOWARD has a break in the skin with surrounding erythema and warmth, is tender to palpation. Distal pulses are present. - Back Exam Back exam: NORMAL INSPECTION - Neurological Exam Neurological exam: Alert, CN II-XII Intact, Normal Gait, Oriented x3, Reflexes Normal - Psychiatric Exam Psychiatric exam: Normal Affect, Normal Mood - Skin Skin Exam: Dry, Intact, Normal Color, Warm Results - Vital Signs Recent Vital Signs: Last Vital Signs Temp 97.5 F L 09/11/17 02:15 Pulse 71 09/11/17 02:15 Resp 19 09/11/17 02:15 BP 92/60 L 09/11/17 02:15 Pulse Ox 18 L 09/11/17 00:30 - Labs Result Diagrams: 09/10/17 23:20 09/10/17 23:20 Assessment & Plan - Assessment and Plan (Free Text) Assessment: 51 year old male with pertinent medical history of IV heroin abuse presents with right upper extremity cellulitis with fluctuance. XR of elbow in ED performed. Duplex negative. Patient has a white count of 11.9 but no other SIRS criteria, vitals are stable. 1 dose stat morphine given. Patient has a history of asthma - do not want to mask SIRS criteria by giving duonebs. Regarding patient's history of IVDA - RPR, hepatitis and HIV ordered last admissions, negative; mycoplasma IGG was positive, indicating previous infection Plan: Cellulitis, likely 2/2 IVDA - Vanc/Zosyn; Ibuprofen for moderate pain, Toradol for severe pain, PRN; IVF at maintenance of 100/hr - Blood culture, wound culture - Consider MRI elbow to rule out osteomyelitis - Surgery consult: Dr. Garcia - No need for ID consult History of Asthma - Xopenex ARCELIA and PRN. - Avoid Duonebs unless patient not controlled on Xopenex Tobacco Abuse - Advised cessation - Offered nicotine patch Polysubstance Abuse - Monitor for signs of withdrawal - Tox screen - HIV and Hepatitis should be performed outpatient - Advised cessation GI and DVT Prophylaxis - Protonix/Lovenox
[2017-09-11] MEDS: Pantoprazole 40 mg EC Tab PO SCH (06:44)
[2017-09-11 06:55] LABS: BASO # 0.02 K/mm3 (0.0-2.0); BASO % 0.2 % (0.0-3.0); EOS # 0.2 (0.0-0.7); EOS % 2.9 % (1.5-5.0); GRAN # 4.63 (1.4-6.5); GRAN % 56.2 % (50.0-68.0); HEMOGLOBIN 10.7 g/dL (14.0-18.0); LYMPH # 2.5 (1.2-3.4); LYMPH % 30.6 % (22.0-35.0); MEAN CELL VOLUME 91.6 fl (80.0-105.0); MEAN CORPUSCULAR HGB CONC 32.7 g/dl (31.0-37.0); MEAN PLATELET VOLUME 9.2 fl (7.0-11.0); MONO # 0.8 (0.1-0.6); MONO % 10.1 % (1.0-6.0); RBC 3.57 10^6/uL (3.5-6.1); RED CELL DISTRIBUTION WIDTH 15.2 % (11.5-14.5); WHITE BLOOD COUNT 8.2 10^3/ul (4.5-11.0)
[2017-09-11 07:20] LABS: ALBUMIN 3.1 g/dL (3.0-4.8); ALT/SGPT 135 U/L (7-56); AST/SGOT 61 U/L (17-59); BLOOD UREA NITROGEN 19 mg/dL (7-21); CALCIUM 8.4 mg/dL (8.4-10.5); GFR AFRICAN-AMERICAN > 60; GFR NON-AFRICAN AMERICAN > 60
[2017-09-11] MEDS: Piperacillin/Tazobact 3.375 gm 100 ML IVPB SCH ×2 (07:37→13:09)
[2017-09-11] MEDS: Levalbuterol 1.25 MG/3 ML Inhal Soln UD IH SCH ×3 (07:54→20:30)
--- NOTE | 2017-09-11 08:40 | RAD ---
PROCEDURE: Radiographs of the right elbow. HISTORY: IV drug abuse, swelling and pain COMPARISON: No prior. FINDINGS: BONES: Normal. No fracture. JOINTS: Normal. No osteoarthritis. SOFT TISSUES: Soft tissue swelling adjacent to the olecranon JOINT EFFUSION: None. OTHER FINDINGS: None. IMPRESSION: Soft tissue swelling without acute articular or osseous abnormality. Concordant results with the preliminary interpretation rendered by the emergency department physician procedure.
[2017-09-11 09:46] LABS: BARBITURATES, UR NEGATIVE (NEGATIVE); BENZODIAZEPINES, UR NEGATIVE (NEGATIVE); OPIATES, UR POSITIVE (NEGATIVE); PHENCYCLIDINE, UR NEGATIVE (NEGATIVE)
[2017-09-11] MEDS ORDERED: Enoxaparin 40 mg Syringe SC SCH (10:00)
[2017-09-11] MEDS ORDERED: Lidocaine 1% Inj (20ml) IJ STA (10:22)
--- NOTE | 2017-09-11 10:53 | US ---
PROCEDURE: Right upper extremity venous US CLINICAL HISTORY: Arm pain and swelling Evaluate for deep venous thrombosis. PHYSICIAN(S): Jose Maria Goldstein M.D FINDINGS: The visualized rightinternal jugular vein is atretic but appears patent. No acute DVT is appreciated in the visualized segments of the right subclavian vein. The visualized deep venous system of the proximal right upper extremity is sonographically normal and compressible. IMPRESSION: 1. No sonographic evidence for deep venous thrombosis in the visualized segments of the right upper extremity.
--- NOTE | 2017-09-11 10:58 | CP.PCM.CON ---
History of Present Illness - History of Present Illness History of Present Illness: Surgery Consult Note: (Dr. Marshall) Mr. Guzman is a 51 year old male with a past medical history significant for IV heroin abuse and asthma who presented with erythema/swelling to the right proximal forearm/elbow with associated sharp localized pain for one week. Patient states that he has had two I&D's to the same general area in the past with one recently done [place] [facility] [place] with [place] being discharged home on oral antibiotics. He does not recall any results of microbiology studies or cultures done in the past. Patient endorses that he has injected heroin here in the past , most recently one week ago. He denies any fevers, chills, headache, chest pain , SOB, cough, abdominal pain, N/V/D/C, changes in urine output, any motor/ sensory deficits of the RUE or any numbness/tingling/weakness of any extremity. PMH: Previous abscess's requiring I&D's, IVDA and Asthma PSH: Denies Family History: Denies Social History: Current smoker with reported five year pack smoking history; Denies alcohol abuse; Endorses IV heroin use Allergies: NKDA Review of Systems - Review of Systems Review of Systems: As stated in HPI, otherwise negative Past Patient History - Infectious Disease Hx of Infectious Diseases: None - Past Medical History & Family History Past Medical History?: Yes - Past Social History Smoking Status: Smoker Currrent Status Unknown - CARDIAC Hx Cardiac Disorders: No - PULMONARY Hx Respiratory Disorders: Yes Hx Asthma: Yes - NEUROLOGICAL Hx Neurological Disorder: No - HEENT Hx HEENT Problems: No - RENAL Hx Chronic Kidney Disease: No - ENDOCRINE/METABOLIC Hx Endocrine Disorders: No - HEMATOLOGICAL/ONCOLOGICAL Hx Blood Disorders: No - INTEGUMENTARY Hx Dermatological Problems: No - MUSCULOSKELETAL/RHEUMATOLOGICAL Hx Musculoskeletal Disorders: No Hx Falls: No - GASTROINTESTINAL Hx Gastrointestinal Disorders: No - GENITOURINARY/GYNECOLOGICAL Hx Genitourinary Disorders: No - PSYCHIATRIC Hx Psychophysiologic Disorder: Yes Hx Anxiety: Yes Hx Depression: Yes Hx Substance Use: Yes - SURGICAL HISTORY Hx Surgeries: No - ANESTHESIA Hx Anesthesia: No Hx Anesthesia Reactions: No Hx Malignant Hyperthermia: No Meds Allergies/Adverse Reactions: Allergies Allergy/AdvReac Type Severity Reaction Status Date / Time No Known Allergies Allergy Verified 09/05/17 10:59 - Medications Medications: Current Medications Sodium Chloride (Sodium Chloride 0.9%) 1,000 mls @ 100 mls/hr IV .Q10H [facility] Last Admin: 09/11/17 01:30 Dose: 100 mls/hr Vancomycin HCl (Vancomycin 1gm) 1 gm in 250 mls @ 167 mls/hr IVPB 2000 ARCELIA PRN Reason: Protocol Piperacillin Sod/Tazobactam Sod (Zosyn 3.375 In Ns 100ml) 100 mls @ 200 mls/hr IVPB Q6 ARCELIA PRN Reason: Protocol Stop: 09/11/17 12:29 Last Admin: 09/11/17 07:37 Dose: 200 mls/hr Ibuprofen (Motrin Tab) 400 mg PO Q6H PRN PRN Reason: Fever >100.4 F Ketorolac Tromethamine (Toradol) 30 mg IVP Q6H PRN PRN Reason: Pain, severe (8-10) Levalbuterol HCl (Xopenex) 1.25 mg IH [id number] [facility] Last Admin: 09/11/17 07:54 Dose: 1.25 mg Levalbuterol HCl (Xopenex) 1.25 mg IH Q2H PRN PRN Reason: Allergy symptoms Pantoprazole Sodium (Protonix Ec Tab) 40 mg PO 0600 [facility] Last Admin: 09/11/17 06:44 Dose: 40 mg Physical Exam - Constitutional Appears: Non-toxic, No Acute Distress - Head Exam Head Exam: ATRAUMATIC, NORMOCEPHALIC - Eye Exam Eye Exam: EOMI, Normal appearance - Respiratory Exam Respiratory Exam: NORMAL BREATHING PATTERN. absent: Accessory Muscle Use, Respiratory Distress - GI/Abdominal Exam GI & Abdominal Exam: Normal Bowel Sounds, Soft. absent: Tenderness - Extremities Exam Extremities exam: Positive for: full ROM, pedal pulses present. Negative for: calf tenderness, pedal edema Additional comments: Approximately 5-6cm area of fluctuance and induration overlying anterolateral aspect of right antecubital fossa with overlying erythema and approximately 1- 2cm linear opening with serosanguineous drainage; Full ROM of RUE with tenderness noted; Radial pulses present in RUE; No motor or sensory deficit to RUE noted - Neurological Exam Neurological exam: Alert, Oriented x3 - Psychiatric Exam Psychiatric exam: Normal Affect, Normal Mood - Skin Skin Exam: Dry, Warm Results - Vital Signs Recent Vital Signs: Last Vital Signs Temp 97.6 F 09/11/17 06:00 Pulse 56 L 09/11/17 06:00 Resp 17 09/11/17 06:00 BP 121/81 09/11/17 06:00 Pulse Ox 96 09/11/17 06:00 - Labs Result Diagrams: 09/12/17 07:30 09/12/17 07:30 Labs: Laboratory Results - last 24 hr 09/11/17 09/11/17 09/11/17 05:45 05:45 09:09 WBC 8.2 D RBC 3.57 Hgb 10.7 L Hct 32.7 L MCV 91.6 MCH 30.0 MCHC 32.7 RDW 15.2 H Plt Count 202 MPV 9.2 Gran % 56.2 Lymph % (Auto) 30.6 [place] % (Auto) 10.1 H Eos % (Auto) 2.9 Baso % (Auto) 0.2 Gran # 4.63 Lymph # (Auto) 2.5 [place] # (Auto) 0.8 H Eos # (Auto) 0.2 Baso # (Auto) 0.02 Sodium 142 Potassium 4.6 Chloride 105 Carbon Dioxide 30 Anion Gap 11 BUN 19 Creatinine 0.8 Est GFR ( Amer) > 60 Est GFR (Non-Af Amer) > 60 Random Glucose 114 H Calcium 8.4 Total Bilirubin 0.1 L AST 61 H ALT 135 H Alkaline Phosphatase 81 Total Protein 6.1 Albumin 3.1 Globulin 3.0 Albumin/Globulin Ratio 1.0 L Urine Opiates Screen Positive H Urine Methadone Screen Negative Ur Barbiturates Screen Negative Ur Phencyclidine Scrn Negative Ur Amphetamines Screen Negative U Benzodiazepines Scrn Negative U Oth Cocaine Metabols Negative U Cannabinoids Screen Negative Assessment & Plan - Assessment and Plan (Free Text) Assessment: 51 year old male with current IVDA who presented with swelling/erythema to RUE with likely underlying abscess Plan: -Follow up RUE ultrasound results -Plan for bedside I&D today (09/11/17) -Continue IV antibiotics and anti-inflammatory's -D/W with attending Kelby Boothe PGY1 - Date & Time Date: 09/11/17 Time: 11:05
[2017-09-11] MEDS ORDERED: oxyCODONE 10 mg Immediate Release Tab PO STA (11:26)
[2017-09-11] MEDS ORDERED: Morphine 2 mg/2 mL syringe IVP PRN (13:44)
[2017-09-11 16:50] VITALS: RESP 18
[2017-09-11] MEDS ORDERED: Piperacillin/Tazobact 3.375 gm 100 ML IVPB SCH (18:00)
--- NOTE | 2017-09-11 18:40 | CP.PCM.CON ---
History of Present Illness - History of Present Illness History of Present Illness: Infectious Disease Consultation: September 11, 2017 51 year old male with a past medical history significant for IV heroin abuse and asthma who presented with erythema/swelling to the right proximal forearm/ elbow with associated sharp localized pain for one week. Patient states that he has had two I&D's to the same general area in the past with [place] [facility] [place] on oral antibiotics. The patient has been in [facility] for similar issues. He does not recall any results of microbiology studies or cultures done in the past. Prior admissions to [facility] have had negative culture results. Patient endorses that he has injected heroin here in the past, most recently one week ago. He denies any fevers, chills, headache, chest pain, SOB, cough, abdominal pain, N/V/D/C, changes in urine output, any motor/sensory deficits of the RUE or any numbness/ tingling/weakness of any extremity. He is known to me from previous hospitalizations. PMHx: Denies PSHx: Denies Allergies: NKDA Social Hx: Social EtOH, 5 cig per day for 20 years, Heroin use IV Active Medications Sodium Chloride (Sodium Chloride 0.9%) 1,000 mls @ 100 mls/hr IV .Q10H [facility] Last Admin: 09/11/17 16:21 Dose: 100 mls/hr Vancomycin HCl (Vancomycin 1gm) 1 gm in 250 mls @ 167 mls/hr IVPB 2000 ARCELIA PRN Reason: Protocol Piperacillin Sod/Tazobactam Sod (Zosyn 3.375 In Ns 100ml) 100 mls @ 200 mls/hr IVPB Q6 ARCELIA PRN Reason: Protocol Stop: 09/12/17 00:29 Ibuprofen (Motrin Tab) 400 mg PO Q6H PRN PRN Reason: Fever >100.4 F Ketorolac Tromethamine (Toradol) 30 mg IVP Q6H PRN PRN Reason: Pain, severe (8-10) Levalbuterol HCl (Xopenex) 1.25 mg IH [id number] [facility] Last Admin: 09/11/17 13:28 Dose: 1.25 mg Levalbuterol HCl (Xopenex) 1.25 mg IH Q2H PRN PRN Reason: Allergy symptoms Morphine Sulfate (Morphine) 2 mg IVP Q4H PRN PRN Reason: Pain, severe (8-10) Last Admin: 09/11/17 17:04 Dose: 2 mg Pantoprazole Sodium (Protonix Ec Tab) 40 mg PO 0600 ARCELIA Last Admin: 09/11/17 06:44 Dose: 40 mg Family Hx: none given ROS: Fevers, arm pain, limited left arm ROM No chest pain, melena, hematuria, hematemesis, hematochezia, depression, anxiety , diarrhea, SOB, vision loss, hearing loss Past Patient History - Infectious Disease Hx of Infectious Diseases: None - Past Medical History & Family History Past Medical History?: Yes - Past Social History Smoking Status: Smoker Currrent Status Unknown - CARDIAC Hx Cardiac Disorders: No - PULMONARY Hx Respiratory Disorders: Yes Hx Asthma: Yes - NEUROLOGICAL Hx Neurological Disorder: No - HEENT Hx HEENT Problems: No - RENAL Hx Chronic Kidney Disease: No - ENDOCRINE/METABOLIC Hx Endocrine Disorders: No - HEMATOLOGICAL/ONCOLOGICAL Hx Blood Disorders: No - INTEGUMENTARY Hx Dermatological Problems: No - MUSCULOSKELETAL/RHEUMATOLOGICAL Hx Musculoskeletal Disorders: No Hx Falls: No - GASTROINTESTINAL Hx Gastrointestinal Disorders: No - GENITOURINARY/GYNECOLOGICAL Hx Genitourinary Disorders: No - PSYCHIATRIC Hx Psychophysiologic Disorder: Yes Hx Anxiety: Yes Hx Depression: Yes Hx Substance Use: Yes - SURGICAL HISTORY Hx Surgeries: No - ANESTHESIA Hx Anesthesia: No Hx Anesthesia Reactions: No Hx Malignant Hyperthermia: No Meds Allergies/Adverse Reactions: Allergies Allergy/AdvReac Type Severity Reaction Status Date / Time No Known Allergies Allergy Verified 09/05/17 10:59 - Medications Medications: Current Medications Sodium Chloride (Sodium Chloride 0.9%) 1,000 mls @ 100 mls/hr IV .Q10H [facility] Last Admin: 09/11/17 16:21 Dose: 100 mls/hr Vancomycin HCl (Vancomycin 1gm) 1 gm in 250 mls @ 167 mls/hr IVPB 2000 ARCELIA PRN Reason: Protocol Piperacillin Sod/Tazobactam Sod (Zosyn 3.375 In Ns 100ml) 100 mls @ 200 mls/hr IVPB Q6 ARCELIA PRN Reason: Protocol Stop: 09/12/17 00:29 Ibuprofen (Motrin Tab) 400 mg PO Q6H PRN PRN Reason: Fever >100.4 F Ketorolac Tromethamine (Toradol) 30 mg IVP Q6H PRN PRN Reason: Pain, severe (8-10) Levalbuterol HCl (Xopenex) 1.25 mg IH [id number] [facility] Last Admin: 09/11/17 13:28 Dose: 1.25 mg Levalbuterol HCl (Xopenex) 1.25 mg IH Q2H PRN PRN Reason: Allergy symptoms Morphine Sulfate (Morphine) 2 mg IVP Q4H PRN PRN Reason: Pain, severe (8-10) Last Admin: 09/11/17 17:04 Dose: 2 mg Pantoprazole Sodium (Protonix Ec Tab) 40 mg PO 0600 [facility] Last Admin: 09/11/17 06:44 Dose: 40 mg Physical Exam - Constitutional Appears: Non-toxic, No Acute Distress - Head Exam Head Exam: ATRAUMATIC, NORMOCEPHALIC - Eye Exam Eye Exam: EOMI, PERRL Pupil Exam: NORMAL ACCOMODATION, PERRL - ENT Exam ENT Exam: Mucous Membranes Moist, Normal External Ear Exam, TM's Normal Bilaterally - Neck Exam Neck exam: Positive for: Full Rom, Normal Inspection - Respiratory Exam Respiratory Exam: Clear to Auscultation Bilateral, NORMAL BREATHING PATTERN. absent: Rales, Rhonchi, Wheezes - Cardiovascular Exam Cardiovascular Exam: REGULAR RHYTHM, RRR, +S1, +S2 - GI/Abdominal Exam GI & Abdominal Exam: Normal Bowel Sounds, Soft. absent: Distended, Tenderness - Extremities Exam Extremities exam: Positive for: full ROM Additional comments: Approximately 5-6cm area of fluctuance and induration overlying anterolateral aspect of right antecubital fossa with overlying erythema and approximately 1- 2cm linear opening with serosanguineous drainage; Full ROM of RUE with tenderness noted; Radial pulses present in RUE; No motor or sensory deficit to RUE noted. - Neurological Exam Neurological exam: Alert, CN II-XII Intact, Oriented x3 - Psychiatric Exam Psychiatric exam: Normal Affect, Normal Mood - Skin Skin Exam: Dry, Warm Results - Vital Signs Recent Vital Signs: Last Vital Signs Temp 98.7 F 09/11/17 16:49 Pulse 63 09/11/17 16:49 Resp 18 09/11/17 16:49 BP 94/61 L 09/11/17 16:49 Pulse Ox 100 09/11/17 16:49 - Labs Result Diagrams: 09/11/17 05:45 09/11/17 05:45 Labs: Laboratory Results - last 24 hr 09/11/17 09/11/17 09/11/17 05:45 05:45 09:09 WBC 8.2 D RBC 3.57 Hgb 10.7 L Hct 32.7 L MCV 91.6 MCH 30.0 MCHC 32.7 RDW 15.2 H Plt Count 202 MPV 9.2 Gran % 56.2 Lymph % (Auto) 30.6 [place] % (Auto) 10.1 H Eos % (Auto) 2.9 Baso % (Auto) 0.2 Gran # 4.63 Lymph # (Auto) 2.5 [place] # (Auto) 0.8 H Eos # (Auto) 0.2 Baso # (Auto) 0.02 Sodium 142 Potassium 4.6 Chloride 105 Carbon Dioxide 30 Anion Gap 11 BUN 19 Creatinine 0.8 Est GFR ( Amer) > 60 Est GFR (Non-Af Amer) > 60 Random Glucose 114 H Calcium 8.4 Total Bilirubin 0.1 L AST 61 H ALT 135 H Alkaline Phosphatase 81 Total Protein 6.1 Albumin 3.1 Globulin 3.0 Albumin/Globulin Ratio 1.0 L Urine Opiates Screen Positive H Urine Methadone Screen Negative Ur Barbiturates Screen Negative Ur Phencyclidine Scrn Negative Ur Amphetamines Screen Negative U Benzodiazepines Scrn Negative U Oth Cocaine Metabols Negative U Cannabinoids Screen Negative Assessment & Plan - Assessment and Plan (Free Text) Assessment: 51 yo male with current IVDA presenting with right upper extremity swelling and erythema for bedside I&D with surgery today. Started on IV Vancomycin and Zosyn. Cultures on I&D. Supportive care. Thank you for allowing me to participate in the care of the patient, we will follow with you.
[2017-09-11] MEDS ORDERED: Vancomycin 1gm in NS 250ml 1 GM/250 ML BAG IVPB SCH (20:00)
[2017-09-12] MEDS ORDERED: Piperacillin/Tazobact 3.375 gm 100 ML IVPB SCH
[2017-09-12] MEDS: Levalbuterol 1.25 MG/3 ML Inhal Soln UD IH SCH ×3 (02:20→13:16)
[2017-09-12] MEDS: Sodium Chloride 0.9% 1,000 ML IV SCH (03:09)
[2017-09-12] MEDS: Pantoprazole 40 mg EC Tab PO SCH (05:34)
[2017-09-12 07:53] LABS: BASO # 0.01 K/mm3 (0.0-2.0); BASO % 0.1 % (0.0-3.0); EOS # 0.1 (0.0-0.7); EOS % 1.5 % (1.5-5.0); GRAN # 6.57 (1.4-6.5); GRAN % 74.9 % (50.0-68.0); LYMPH # 1.7 (1.2-3.4); LYMPH % 19.5 % (22.0-35.0); MEAN CELL VOLUME 90.5 fl (80.0-105.0); MEAN CORPUSCULAR HEMOGLOBIN 30.1 pg (25.0-35.0); MEAN CORPUSCULAR HGB CONC 33.2 g/dl (31.0-37.0); MEAN PLATELET VOLUME 9.3 fl (7.0-11.0); MONO # 0.4 (0.1-0.6); RBC 3.99 10^6/uL (3.5-6.1); RED CELL DISTRIBUTION WIDTH 14.7 % (11.5-14.5); WHITE BLOOD COUNT 8.8 10^3/ul (4.5-11.0)
[2017-09-12 08:08] LABS: ALBUMIN 3.5 g/dL (3.0-4.8); ALT/SGPT 121 U/L (7-56); AST/SGOT 59 U/L (17-59); BLOOD UREA NITROGEN 10 mg/dL (7-21); CALCIUM 8.7 mg/dL (8.4-10.5); GFR AFRICAN-AMERICAN > 60; GFR NON-AFRICAN AMERICAN > 60
[2017-09-12 09:09] VITALS: BP 122/82; PULSE 64; TEMP 98.3; O2SAT 98
--- NOTE | 2017-09-12 11:11 | CP.PCM.DIS ---
<Tai Mcdermott - Last Filed: 09/12/17 11:24> Provider - Provider Date of Admission: 09/11/17 00:10 Attending physician: Perla Maldonado MD Primary care physician: NO PRIMARY CARE PROVIDER Time Spent in preparation of Discharge (in minutes): 45 Hospital Course - Lab Results Lab Results: Micro Results 09/11/17 01:00 Arm - Right Gram Stain - Final 09/11/17 01:00 Arm - Right Wound Culture - Preliminary NO GROWTH AFTER 24 HOURS Most Recent Lab Values WBC 8.8 10^3/ul (4.5-11.0) 09/12/17 07:30 RBC 3.99 10^6/uL (3.5-6.1) 09/12/17 07:30 Hgb 12.0 g/dL (14.0-18.0) L 09/12/17 07:30 Hct 36.1 % (42.0-52.0) L 09/12/17 07:30 MCV 90.5 fl (80.0-105.0) 09/12/17 07:30 MCH 30.1 pg (25.0-35.0) 09/12/17 07:30 MCHC 33.2 g/dl (31.0-37.0) 09/12/17 07:30 RDW 14.7 % (11.5-14.5) H 09/12/17 07:30 Plt Count 218 10^3/uL (120.0-450.0) 09/12/17 07:30 MPV 9.3 fl (7.0-11.0) 09/12/17 07:30 Gran % 74.9 % (50.0-68.0) H 09/12/17 07:30 Lymph % (Auto) 19.5 % (22.0-35.0) L 09/12/17 07:30 Russell % (Auto) 4.0 % (1.0-6.0) 09/12/17 07:30 Eos % (Auto) 1.5 % (1.5-5.0) 09/12/17 07:30 Baso % (Auto) 0.1 % (0.0-3.0) 09/12/17 07:30 Gran # 6.57 (1.4-6.5) H 09/12/17 07:30 Lymph # (Auto) 1.7 (1.2-3.4) 09/12/17 07:30 Russell # (Auto) 0.4 (0.1-0.6) 09/12/17 07:30 Eos # (Auto) 0.1 (0.0-0.7) 09/12/17 07:30 Baso # (Auto) 0.01 K/mm3 (0.0-2.0) 09/12/17 07:30 ESR 33 mm/hr (0.00-15.0) H 09/10/17 23:20 Sodium 140 mmol/L (132-148) 09/12/17 07:30 Potassium 4.3 mmol/L (3.6-5.0) 09/12/17 07:30 Chloride 108 mmol/L (98-107) H 09/12/17 07:30 Carbon Dioxide 24 mmol/L (21-33) 09/12/17 07:30 Anion Gap 13 (10-20) 09/12/17 07:30 BUN 10 mg/dL (7-21) 09/12/17 07:30 Creatinine 0.6 mg/dl (0.8-1.5) L 09/12/17 07:30 Est GFR ( Amer) > 60 09/12/17 07:30 Est GFR (Non-Af Amer) > 60 09/12/17 07:30 Random Glucose 125 mg/dL (70-110) H 09/12/17 07:30 Calcium 8.7 mg/dL (8.4-10.5) 09/12/17 07:30 Phosphorus 2.2 mg/dL (2.5-4.5) L 09/12/17 07:30 Magnesium 2.1 mg/dL (1.7-2.2) 09/12/17 07:30 Total Bilirubin 0.4 mg/dL (0.2-1.3) 09/12/17 07:30 AST 59 U/L (17-59) 09/12/17 07:30 ALT 121 U/L (7-56) H 09/12/17 07:30 Alkaline Phosphatase 75 U/L (38-126) 09/12/17 07:30 C-React Prot High Sens > 15.00 mg/L (1.00-3.00) H 09/10/17 23:20 Total Protein 6.8 g/dL (5.8-8.3) 09/12/17 07:30 Albumin 3.5 g/dL (3.0-4.8) 09/12/17 07:30 Globulin 3.3 gm/dL 09/12/17 07:30 Albumin/Globulin Ratio 1.0 (1.1-1.8) L 09/12/17 07:30 Urine Opiates Screen Positive (NEGATIVE) H 09/11/17 09:09 Urine Methadone Screen Negative (NEGATIVE) 09/11/17 09:09 Ur Barbiturates Screen Negative (NEGATIVE) 09/11/17 09:09 Ur Phencyclidine Scrn Negative (NEGATIVE) 09/11/17 09:09 Ur Amphetamines Screen Negative (NEGATIVE) 09/11/17 09:09 U Benzodiazepines Scrn Negative (NEGATIVE) 09/11/17 09:09 U Oth Cocaine Metabols Negative (NEGATIVE) 09/11/17 09:09 U Cannabinoids Screen Negative (NEGATIVE) 09/11/17 09:09 - Hospital Course Hospital Course: Patient is a 51 year old male with a past medical history of IV heroin abuse and asthma who was admitted for evaluation and treatment of right upper extremity pain. With the use of physical examinations, lab work, and imaging the patient was diagnosed with and treated for right upper extremity cellulitis and abscess, along with the patients chronic medical conditions. During their hospital stay the patient was seen by general surgery (Dr. Marshall) and their recommendations were both appreciated and utilized in the care for this patient. Patient underwent an incision and drainage of the right upper extremity with no post procedure complications. During their hospital stay the patient underwent a elbow xray and extremity ultrasound which was reviewed, appreciated, and utilized in the management of the patients clinical course. The elbow xray revealed soft tissue swelling without acute articular or osseous abnormality. The right upper extremity ultrasound revealed no sonographic evidence for deep venous thrombosis. Patient was treated with vancomycin, zosyn , analgesics, intravenous fluids amongst other empiric/therapeutic medications. At this time the patient is medically stable for discharge. Patient understands and appreciates discharge plan. Patient instructed to follow up with primary care physicians and referrals within three to five days from discharge. Furthermore, the patient is instructed to take medications as prescribed and to return to emergency room for evaluation of intractable headache, fever, chills, dizziness, chest pain, shortness of breath, abdominal pain, nausea, vomiting, diarrhea, constipation, and urinary symptoms. This is a brief summary of the patients hospital course. Please see patient chart for full details . Discharge Exam - Additional Findings Additional findings: - Constitutional Appears: Well - Head Exam Head Exam: ATRAUMATIC, NORMAL INSPECTION, NORMOCEPHALIC - Eye Exam Eye Exam: EOMI - ENT Exam ENT Exam: Mucous Membranes Moist, Normal Exam - Respiratory Exam Respiratory Exam: Clear to Auscultation Bilateral, NORMAL BREATHING PATTERN - Cardiovascular Exam Cardiovascular Exam: +s1 +s2 - GI/Abdominal Exam GI & Abdominal Exam: Normal Bowel Sounds, Soft. absent: Tenderness - Extremities Exam Extremities exam: RUE -erythema improved, incision site with packing , tender to palpation. Distal pulses are present. - Neurological Exam Neurological exam: Alert Oriented x3 - Psychiatric Exam Psychiatric exam: Normal Affect, Normal Mood Discharge Plan - Discharge Medications Prescriptions: Cephalexin [cephalexin] 500 mg PO Q8H 10 Days #30 cap Doxycycline Hyclate [Doryx] 100 mg PO BID 10 Days #20 cap - Follow Up Plan Condition: STABLE Disposition: HOME/ ROUTINE Patient education suggested?: Yes Instructions: Abscess Incision and Drainage (DC), Drug Abuse and Drug Addiction (DC), Cellulitis (Skin Infection), Adult (DC) Additional Instructions: Patient Instructions: 1. Take medications as prescribed: Cephalexin [cephalexin] 500 mg PO Q8H 10 Days #30 cap Doxycycline Hyclate [Doryx] 100 mg PO BID 10 Days #20 cap 2. Follow up with primary care physician and/or make appointment Dr. Berta Swann [address] [place] [address] within three to five days from discharge. 3. Change packing daily with use of hydrogen peroxide. Follow up with Dr. Marshall in 1 week from discharge. 4. Return to the emergency room for evaluation of intractable headache, fever, chills, dizziness, chest pain, shortness of breath, abdominal pain, nausea, vomiting, diarrhea, constipation, and urinary symptoms. Referrals: PCP,NO [Primary Care Provider] - Cirilo Marshall MD [Staff Provider] - <Perla Maldonado - Last Filed: 09/12/17 16:06> Provider - Provider Date of Admission: 09/11/17 00:10 Attending physician: Perla Maldonado MD Primary care physician: NO PRIMARY CARE PROVIDER Hospital Course - Lab Results Lab Results: Micro Results 09/11/17 01:00 Arm - Right Gram Stain - Final 09/11/17 01:00 Arm - Right Wound Culture - Preliminary NO GROWTH AFTER 24 HOURS Most Recent Lab Values WBC 8.8 10^3/ul (4.5-11.0) 09/12/17 07:30 RBC 3.99 10^6/uL (3.5-6.1) 09/12/17 07:30 Hgb 12.0 g/dL (14.0-18.0) L 09/12/17 07:30 Hct 36.1 % (42.0-52.0) L 09/12/17 07:30 MCV 90.5 fl (80.0-105.0) 09/12/17 07:30 MCH 30.1 pg (25.0-35.0) 09/12/17 07:30 MCHC 33.2 g/dl (31.0-37.0) 09/12/17 07:30 RDW 14.7 % (11.5-14.5) H 09/12/17 07:30 Plt Count 218 10^3/uL (120.0-450.0) 09/12/17 07:30 MPV 9.3 fl (7.0-11.0) 09/12/17 07:30 Gran % 74.9 % (50.0-68.0) H 09/12/17 07:30 Lymph % (Auto) 19.5 % (22.0-35.0) L 09/12/17 07:30 Russell % (Auto) 4.0 % (1.0-6.0) 09/12/17 07:30 Eos % (Auto) 1.5 % (1.5-5.0) 09/12/17 07:30 Baso % (Auto) 0.1 % (0.0-3.0) 09/12/17 07:30 Gran # 6.57 (1.4-6.5) H 09/12/17 07:30 Lymph # (Auto) 1.7 (1.2-3.4) 09/12/17 07:30 Russell # (Auto) 0.4 (0.1-0.6) 09/12/17 07:30 Eos # (Auto) 0.1 (0.0-0.7) 09/12/17 07:30 Baso # (Auto) 0.01 K/mm3 (0.0-2.0) 09/12/17 07:30 ESR 33 mm/hr (0.00-15.0) H 09/10/17 23:20 Sodium 140 mmol/L (132-148) 09/12/17 07:30 Potassium 4.3 mmol/L (3.6-5.0) 09/12/17 07:30 Chloride 108 mmol/L (98-107) H 09/12/17 07:30 Carbon Dioxide 24 mmol/L (21-33) 09/12/17 07:30 Anion Gap 13 (10-20) 09/12/17 07:30 BUN 10 mg/dL (7-21) 09/12/17 07:30 Creatinine 0.6 mg/dl (0.8-1.5) L 09/12/17 07:30 Est GFR ( Amer) > 60 09/12/17 07:30 Est GFR (Non-Af Amer) > 60 09/12/17 07:30 Random Glucose 125 mg/dL (70-110) H 09/12/17 07:30 Calcium 8.7 mg/dL (8.4-10.5) 09/12/17 07:30 Phosphorus 2.2 mg/dL (2.5-4.5) L 09/12/17 07:30 Magnesium 2.1 mg/dL (1.7-2.2) 09/12/17 07:30 Total Bilirubin 0.4 mg/dL (0.2-1.3) 09/12/17 07:30 AST 59 U/L (17-59) 09/12/17 07:30 ALT 121 U/L (7-56) H 09/12/17 07:30 Alkaline Phosphatase 75 U/L (38-126) 09/12/17 07:30 C-React Prot High Sens > 15.00 mg/L (1.00-3.00) H 09/10/17 23:20 Total Protein 6.8 g/dL (5.8-8.3) 09/12/17 07:30 Albumin 3.5 g/dL (3.0-4.8) 09/12/17 07:30 Globulin 3.3 gm/dL 09/12/17 07:30 Albumin/Globulin Ratio 1.0 (1.1-1.8) L 09/12/17 07:30 Urine Opiates Screen Positive (NEGATIVE) H 09/11/17 09:09 Urine Methadone Screen Negative (NEGATIVE) 09/11/17 09:09 Ur Barbiturates Screen Negative (NEGATIVE) 09/11/17 09:09 Ur Phencyclidine Scrn Negative (NEGATIVE) 09/11/17 09:09 Ur Amphetamines Screen Negative (NEGATIVE) 09/11/17 09:09 U Benzodiazepines Scrn Negative (NEGATIVE) 09/11/17 09:09 U Oth Cocaine Metabols Negative (NEGATIVE) 09/11/17 09:09 U Cannabinoids Screen Negative (NEGATIVE) 09/11/17 09:09 Attending/Attestation - Attestation I have personally seen and examined this patient.: Yes I have fully participated in the care of the patient.: Yes I have reviewed all pertinent clinical information, including history, physical exam and plan: Yes Notes (Text): 09/12/17 16:03 Attending note; Patient seen and examined with resident. patient is a 51-year-old male with a past medical history of IV drug abuse, multiple abscesses, hepatitis C, noncompliance with follow-up as admitted with right hand cellulitis/abscess. Status post incision and drainage by surgery. Currently arm swelling is improved . Ultrasound is negative for DVT. Surgery evaluation appreciated. ID evaluation appreciated. blood culture, wound culture is negative so far. Patient will be discharged home with by mouth Keflex and doxycycline. Complete drug abuse cessation Is strongly advised. Advised to follow-up with outpatient drug rehabilitation program. Follow-up with PMD of choice upon discharge.
--- NOTE | 2017-09-12 11:13 | CP.PCM.PN ---
Subjective - Date & Time of Evaluation Date of Evaluation: 09/12/17 Time of Evaluation: 11:03 - Subjective Subjective: Surgery Progress Note: Patient seen and assessed at bedside. Patient resting comfortably in bed. Patient reports that his packing fell out overnight. Patient denies fevers, chills, chest pain, SOB, abdominal pain, N/V/D/C or changes in urine output. Objective - Vital Signs/Intake and Output Vital Signs (last 24 hours): Temp Pulse Resp BP Pulse Ox 98.3 F 64 18 122/82 98 09/12/17 09:08 09/12/17 09:08 09/12/17 09:08 09/12/17 09:08 09/12/17 09:08 Intake and Output: 09/12/17 09/12/17 06:59 18:59 Intake Total 2300 Output Total 1900 Balance 400 - Medications Medications: Current Medications Sodium Chloride (Sodium Chloride 0.9%) 1,000 mls @ 100 mls/hr IV .Q10H [facility] Last Admin: 09/12/17 03:09 Dose: 100 mls/hr Vancomycin HCl (Vancomycin 1gm) 1 gm in 250 mls @ 167 mls/hr IVPB 2000 ARCELIA PRN Reason: Protocol Last Admin: 09/11/17 20:12 Dose: 167 mls/hr Piperacillin Sod/Tazobactam Sod (Zosyn 3.375 In Ns 100ml) 100 mls @ 200 mls/hr IVPB Q6 ARCELIA PRN Reason: Protocol Last Admin: 09/12/17 05:34 Dose: 200 mls/hr Ibuprofen (Motrin Tab) 400 mg PO Q6H PRN PRN Reason: Fever >100.4 F Ketorolac Tromethamine (Toradol) 30 mg IVP Q6H PRN PRN Reason: Pain, severe (8-10) Levalbuterol HCl (Xopenex) 1.25 mg IH [id number] ARCELIA Last Admin: 09/12/17 07:56 Dose: Not Given Levalbuterol HCl (Xopenex) 1.25 mg IH Q2H PRN PRN Reason: Allergy symptoms Morphine Sulfate (Morphine) 2 mg IVP Q4H PRN PRN Reason: Pain, severe (8-10) Last Admin: 09/11/17 17:04 Dose: 2 mg Pantoprazole Sodium (Protonix Ec Tab) 40 mg PO 0600 ARCELIA Last Admin: 09/12/17 05:34 Dose: 40 mg - Labs Labs: 09/12/17 07:30 09/12/17 07:30 - Constitutional Appears: Non-toxic, No Acute Distress - Head Exam Head Exam: ATRAUMATIC, NORMOCEPHALIC - Eye Exam Eye Exam: EOMI, Normal appearance - Respiratory Exam Respiratory Exam: NORMAL BREATHING PATTERN. absent: Accessory Muscle Use, Respiratory Distress - Extremities Exam Additional comments: Approximately 5-6cm area of induration overlying anterolateral aspect of right antecubital fossa with minimal overlying erythema and approximately 1-2cm linear opening - Neurological Exam Neurological Exam: Alert, Awake, Oriented x3 - Psychiatric Exam Psychiatric exam: Normal Affect, Normal Mood - Skin Skin Exam: Dry, Warm Assessment and Plan - Assessment and Plan (Free Text) Assessment: 51 year old male with current IVDA who presented with swelling/erythema to RUE with likely underlying abscess Plan: -Bedside ultrasound showed edema but no fluid collection for drainage -Continue daily wound packing with hydrogen peroxide to surrounding area -PO antibiotics upon discharge -No further surgical interventions indicated at this time -D/W with attending Kelby Boothe PGY1
--- NOTE | 2017-09-12 15:14 | CP.PCM.PN ---
Subjective - Date & Time of Evaluation Date of Evaluation: 09/12/17 Time of Evaluation: 12:00 - Subjective Subjective: Infectious Disease Follow Up: September 12, 2017 51 year old male with a past medical history significant for IV heroin abuse and asthma who presented with erythema/swelling to the right proximal forearm/ elbow with associated sharp localized pain for one week. Patient states that he has had two I&D's to the same general area in the past with one recently done at [facility] with patient being discharged home on oral antibiotics. The patient has been in [facility] for similar issues. He does not recall any results of microbiology studies or cultures done in the past. Prior admissions to [facility] have had negative culture results. Patient endorses that he has injected heroin here in the past, most recently one week ago. He denies any fevers, chills, headache, chest pain, SOB, cough, abdominal pain, N/V/D/C, changes in urine output, any motor/sensory deficits of the RUE or any numbness/ tingling/weakness of any extremity. He is known to me from previous hospitalizations. Abscess at right forearm is already open and draining. Objective - Vital Signs/Intake and Output Vital Signs (last 24 hours): Temp Pulse Resp BP Pulse Ox 98.3 F 64 18 122/82 98 09/12/17 09:08 09/12/17 09:08 09/12/17 09:08 09/12/17 09:08 09/12/17 09:08 Intake and Output: 09/12/17 09/12/17 06:59 18:59 Intake Total 2300 Output Total 1900 Balance 400 - Labs Labs: 09/12/17 07:30 09/12/17 07:30 - Constitutional Appears: Non-toxic, No Acute Distress - Head Exam Head Exam: ATRAUMATIC, NORMOCEPHALIC - Eye Exam Eye Exam: EOMI, PERRL Pupil Exam: NORMAL ACCOMODATION, PERRL - ENT Exam ENT Exam: Mucous Membranes Moist, Normal External Ear Exam, TM's Normal Bilaterally - Neck Exam Neck Exam: Full ROM, Normal Inspection - Respiratory Exam Respiratory Exam: Clear to Ausculation Bilateral, NORMAL BREATHING PATTERN. absent: Rales, Rhonchi, Wheezes - Cardiovascular Exam Cardiovascular Exam: REGULAR RHYTHM, RRR, +S1, +S2 - GI/Abdominal Exam GI & Abdominal Exam: Soft, Normal Bowel Sounds. absent: Distended, Tenderness - Extremities Exam Extremities Exam: Full ROM Additional comments: Approximately 5-6cm area of fluctuance and induration overlying anterolateral aspect of right antecubital fossa with overlying erythema and approximately 1- 2cm linear opening with serosanguineous drainage; Full ROM of RUE with tenderness noted; Radial pulses present in RUE; No motor or sensory deficit to RUE noted. - Neurological Exam Neurological Exam: Alert, Awake, CN II-XII Intact, Oriented x3 - Psychiatric Exam Psychiatric exam: Normal Affect. absent: Normal Mood - Skin Skin Exam: Dry, Warm Assessment and Plan - Assessment and Plan (Free Text) Assessment: 51 yo male with current IVDA presenting with right upper extremity swelling and erythema for bedside I&D with surgery yesterday. Started on IV Vancomycin and Zosyn. Cultures on I&D pending. Can consider discharge when ready on Keflex and Doxycycline (100 mg BID) for 14 days. Supportive care. Thank you for allowing me to participate in the care of the patient, we will follow with you.
== END 2017-09-12 14:10 | disposition home or self-care (01) | DRG 277 ==
LOC: ED 18:51 → ERH 09-11 00:10 → 3RSO 09-11 01:47
PROVIDERS: ADMIT Internal Medicine; ATTEND Internal Medicine
PROC: 0X9 Anatomical Regions, Upper Extremities, Drainage (ICD-10-PCS; principal; 2017-09-11)
DX: L02.413 Cutaneous abscess of right upper limb (principal); F11.10 Opioid abuse, uncomplicated; B19.20 Unspecified viral hepatitis C without hepatic coma; L03.113 Cellulitis of right upper limb; J45.909 Unspecified asthma, uncomplicated; F17.210 Nicotine dependence, cigarettes, uncomplicated; Z91.19 Patient's noncompliance with other medical treatment and regimen

== ENCOUNTER 2017-09-17 21:05 | Observation (INO) | payer MEDICAID, OTHER ==
[2017-09-17 21:05] VITALS: BMI 21.9
--- NOTE | 2017-09-17 21:30 | ED PDOC ---
Arrival/HPI - General Time Seen by Provider: 09/17/17 21:06 Historian: Patient - History of Present Illness Narrative History of Present Illness (Text): 09/17/17 21:30 Bertin Mojica is a 51 year old male smoker, whose past medical history includes anxiety, IV heroin use abuse, and asthma, who presents to the Emergency department complaining of chest pain. Patient states he developed mid- sternal chest pressure with some radiation to his left arm/shoulder tonight. Patient also reports he has been anxious recently. Patient notes he was recently discharged from the hospital following antibiotic treatment for a right arm abscess. Patient denies any fever, chills, shortness of breath, nausea , vomiting, diarrhea, urinary symptoms, back pain, neck pain, headache, dizziness, suicidal ideation, or any other complaints. Symptom Onset: Gradual Symptom Course: Unchanged Quality: Pressure Activities at Onset: Light Context: Home Past Medical History - Provider Review Nursing Documentation Reviewed: Yes - Infectious Disease Hx of Infectious Diseases: None - Cardiac Hx Hypertension: No - Pulmonary Hx Asthma: Yes - Neurological Hx Seizures: No - HEENT Hx HEENT Disorder: No - Renal Hx Renal Disorder: No - Endocrine/Metabolic Hx Endocrine Disorders: No - Hematological/Oncological Hx Cancer: No - Integumentary Hx Dermatological Disorder: No - Musculoskeletal/Rheumatological Hx Musculoskeletal Disorders: No - Gastrointestinal Hx Gastrointestinal Disorders: No - Genitourinary/Gynecological Hx Sexually Transmitted Diseases: Yes - Psychiatric Hx Substance Use: Yes - Anesthesia Hx Anesthesia: No Hx Anesthesia Reactions: No Hx Malignant Hyperthermia: No Family/Social History - Physician Review Nursing Documentation Reviewed: Yes Family/Social History: Unknown Family HX Smoking Status: Smoker Currrent Status Unknown Hx Alcohol Use: No Hx Substance Use: Yes Substance used: Heroin Allergies/Home Meds Allergies/Adverse Reactions: Allergies No Known Allergies Allergy (Verified 09/14/17 13:35) Review of Systems - Physician Review All systems were reviewed & negative as marked: Yes - Review of Systems Constitutional: Normal. absent: Fevers Eyes: Normal ENT: Normal Respiratory: Normal. absent: SOB, Cough Cardiovascular: Chest Pain Gastrointestinal: Normal. absent: Abdominal Pain, Diarrhea, Nausea, Vomiting Genitourinary Male: Normal. absent: Dysuria, Frequency, Hematuria, Urinary Output Changes Musculoskeletal: Normal. absent: Back Pain, Neck Pain Skin: Normal. absent: Rash Neurological: Normal. absent: Headache, Dizziness Endocrine: Normal Hemo/Lymphatic: Normal Psychiatric: Anxiety Physical Exam Vital Signs Reviewed: Yes Vital Signs Temp Pulse Resp BP Pulse Ox 09/17/17 22:27 75 23 141/83 95 09/17/17 21:29 98.6 F 90 20 141/80 95 Temperature: Afebrile Blood Pressure: Normal Pulse: Regular Respiratory Rate: Normal Appearance: Positive for: Well-Appearing, Non-Toxic, Comfortable Pain Distress: None Mental Status: Positive for: Alert and Oriented X 3 - Systems Exam Head: Present: Atraumatic, Normocephalic Pupils: Present: PERRL Extroacular Muscles: Present: EOMI Conjunctiva: Present: Normal Mouth: Present: Moist Mucous Membranes Neck: Present: Normal Range of Motion Respiratory/Chest: Present: Clear to Auscultation, Good Air Exchange. No: Respiratory Distress, Accessory Muscle Use Cardiovascular: Present: Regular Rate and Rhythm, Normal S1, S2. No: Murmurs Abdomen: No: Tenderness, Distention, Peritoneal Signs Back: Present: Normal Inspection Upper Extremity: Present: Normal Inspection. No: Cyanosis, Edema Lower Extremity: Present: Normal Inspection. No: Edema Neurological: Present: GCS=15, CN II-XII Intact, Speech Normal Skin: Present: Warm, Dry, Normal Color. No: Rashes Psychiatric: Present: Alert, Oriented x 3, Normal Insight, Normal Concentration Medical Decision Making ED Course and Treatment: 09/17/17 21:30 Impression: 51 year old male complaining of chest pain and anxiety. Plan: -- EKG -- Chest X-ray -- Labs, cardiac enzymes -- Aspirin -- Reassess and disposition Prior Visits: Notes and results from previous visits were reviewed. Progress Notes: Reviewed EKG, NSR at 92 bpm. LVH. No acute changes. 09/17/17 22:31 Chest X-ray reviewed, shows no acute processes. 09/17/17 22:34 Case discussed with medical genetics director human relations professor, who is aware and agrees with plan. 09/17/17 22:[address] Powell, who is aware and agrees with plan. Accepts pt in to hospitalist service. Pt will go to remote telemetry observation for chest pain. - Lab Interpretations Lab Results: 09/17/17 21:25 09/17/17 21:25 Lab Results 09/17/17 21:25: WBC 9.5, RBC 3.92, Hgb 11.9 L, Hct 35.5 L, MCV 90.6, MCH 30.4, MCHC 33.5, RDW 14.7 H, Plt Count 291, MPV 8.7 09/17/17 21:25: Sodium 146, Potassium 4.0, Chloride 104, Carbon Dioxide 31, Anion Gap 15, BUN 22 H, Creatinine 0.7 L, Est GFR ( Amer) > 60, Est GFR ( Non-Af Amer) > 60, Random Glucose 77, Calcium 9.3, Total Bilirubin 0.3, AST 60 H , ALT 84 H, Alkaline Phosphatase 77, Lactate Dehydrogenase 416, Total Creatine Kinase 112, Troponin I < 0.01, Total Protein 7.8, Albumin 4.1, Globulin 3.7, Albumin/Globulin Ratio 1.1 09/17/17 21:25: PT 13.4 H, INR 1.17 H, APTT 33.2 I have reviewed the lab results: Yes - RAD Interpretation Radiology Orders: 09/17/17 21:33 CHEST PORTABLE [RAD] Stat Manufacturing Design Engineer: ED Physician - EKG Interpretation Interpreted by ED Physician: Yes Type: 12 lead EKG - Medication Orders Current Medication Orders: Discontinued Medications Aspirin (Aspirin) 325 mg PO ONCE STA Stop: 09/17/17 21:35 Last Admin: 09/17/17 21:40 Dose: 325 mg - Carieibe Statement The provider has reviewed the documentation as recorded by the Clara Mahoney All medical record entries made by the Clara were at my direction and personally dictated by me. I have reviewed the chart and agree that the record accurately reflects my personal performance of the history, physical exam, medical decision making, and the department course for this patient. I have also personally directed, reviewed, and agree with the discharge instructions and disposition. Disposition/Present on Arrival - Present on Arrival Any Indicators Present on Arrival: No History of DVT/PE: No History of Uncontrolled Diabetes: No Urinary Catheter: No History Surgical Site Infection Following: None - Disposition Have Diagnosis and Disposition been Completed?: Yes Diagnosis: Chest pain Disposition: HOSPITALIZED Disposition Time: 22:39 Patient Problems: Current Active Problems Problem Status Onset Chest pain Acute Condition: STABLE
[2017-09-17 21:47] LABS: HEMOGLOBIN 11.9 g/dL (14.0-18.0); MEAN CELL VOLUME 90.6 fl (80.0-105.0); MEAN CORPUSCULAR HEMOGLOBIN 30.4 pg (25.0-35.0); MEAN CORPUSCULAR HGB CONC 33.5 g/dl (31.0-37.0); MEAN PLATELET VOLUME 8.7 fl (7.0-11.0); RBC 3.92 10^6/uL (3.5-6.1); RED CELL DISTRIBUTION WIDTH 14.7 % (11.5-14.5); WHITE BLOOD COUNT 9.5 10^3/ul (4.5-11.0)
[2017-09-17 22:03] LABS: ALB/GLOB RATIO 1.1 (1.1-1.8); ALBUMIN 4.1 g/dL (3.0-4.8); ALT/SGPT 84 U/L (7-56); AST/SGOT 60 U/L (17-59); BLOOD UREA NITROGEN 22 mg/dL (7-21); CALCIUM 9.3 mg/dL (8.4-10.5); GFR AFRICAN-AMERICAN > 60; GFR NON-AFRICAN AMERICAN > 60
[2017-09-17 22:09] LABS: TROPONIN I < 0.01 ng/mL
[2017-09-17 22:35] LABS: INR 1.17 (0.93-1.08); PARTIAL THROMBOPLASTIN TIME 33.2 Seconds (25.1-36.5); PROTHROMBIN TIME 13.4 SECONDS (9.4-12.5)
[2017-09-17] MEDS ORDERED: Albuterol-Ipratrop 3 mg / 0.5 (3 ml) UD IH PRN (23:06)
--- NOTE | 2017-09-17 23:16 | CP.PCM.HP ---
History of Present Illness - History of Present Illness History of Present Illness: CC: Chest pain 51 year old male with PMHx of IV heroin abuse and asthma who presents to the ED with chest pain and sob. Patient states that his chest pain first started yesterday and has gotten progressively worse. He states that the pain is localized to his L chest and denies any radiation down his L arm or ceck. He does complain of mild sob and some nausea but denies any vomiting. He states that he had a similar episode a few months ago but he took "some pill" and it went away. Patient does state that he goes to sleep on his L arm and that it can be exacerbating the pain. No other complaints. ROS: 12 point review of systems negative except as per HPI PMHx: IVDA and asthma PSHx: R arm abcess drainage Medications: Reviewed, see MAR ALL: NKA Family Hx: Denies Social Hx: Denies alcohol, smokes 1/2 PPD cigarretes per day for 20 years, admits to IV heroin (last use 10 days ago) Present on Admission - Present on Admission Any Indicators Present on Admission: No Review of Systems - Review of Systems All systems: reviewed and no additional remarkable complaints except (HPI) Past Patient History - Infectious Disease Hx of Infectious Diseases: None - Past Medical History & Family History Past Medical History?: Yes - Past Social History Smoking Status: Smoker Currrent Status Unknown - CARDIAC Hx Hypertension: No - PULMONARY Hx Asthma: Yes - NEUROLOGICAL Hx Seizures: No - HEENT Hx HEENT Problems: No - RENAL Hx Chronic Kidney Disease: No - ENDOCRINE/METABOLIC Hx Endocrine Disorders: No - HEMATOLOGICAL/ONCOLOGICAL Hx Cancer: No - INTEGUMENTARY Hx Dermatological Problems: No - MUSCULOSKELETAL/RHEUMATOLOGICAL Hx Musculoskeletal Disorders: No - GASTROINTESTINAL Hx Gastrointestinal Disorders: No - GENITOURINARY/GYNECOLOGICAL Hx Sexually Transmitted Disorders: Yes - PSYCHIATRIC Hx Substance Use: Yes - SURGICAL HISTORY Hx Surgeries: Yes Other/Comment: R arm cyst removal - ANESTHESIA Hx Anesthesia: No Hx Anesthesia Reactions: No Hx Malignant Hyperthermia: No Meds Allergies/Adverse Reactions: Allergies Allergy/AdvReac Type Severity Reaction Status Date / Time No Known Allergies Allergy Verified 09/14/17 13:35 Physical Exam - Constitutional Appears: No Acute Distress - Head Exam Head Exam: ATRAUMATIC, NORMOCEPHALIC - Eye Exam Eye Exam: EOMI, PERRL - ENT Exam ENT Exam: Mucous Membranes Moist - Respiratory Exam Respiratory Exam: Clear to Auscultation Bilateral, NORMAL BREATHING PATTERN. absent: Rales, Wheezes - Cardiovascular Exam Cardiovascular Exam: REGULAR RHYTHM, RRR, +S1, +S2 - GI/Abdominal Exam GI & Abdominal Exam: Normal Bowel Sounds, Soft. absent: Tenderness - Extremities Exam Extremities exam: Negative for: calf tenderness, pedal edema - Neurological Exam Neurological exam: Alert, CN II-XII Intact, Oriented x3 - Psychiatric Exam Psychiatric exam: Normal Mood - Skin Skin Exam: Dry, Normal Color, Warm Results - Vital Signs Recent Vital Signs: Last Vital Signs Temp 98.6 F 09/17/17 21:29 Pulse 75 09/17/17 22:27 Resp 23 09/17/17 22:27 BP 141/83 09/17/17 22:27 Pulse Ox 95 09/17/17 22:27 - Labs Result Diagrams: 09/17/17 21:25 09/17/17 21:25 Labs: Laboratory Results - last 24 hr 09/17/17 09/17/17 09/17/17 21:25 21:25 21:25 WBC 9.5 RBC 3.92 Hgb 11.9 L Hct 35.5 L MCV 90.6 MCH 30.4 MCHC 33.5 RDW 14.7 H Plt Count 291 MPV 8.7 PT 13.4 H INR 1.17 H APTT 33.2 Sodium 146 Potassium 4.0 Chloride 104 Carbon Dioxide 31 Anion Gap 15 BUN 22 H Creatinine 0.7 L Est GFR ( Amer) > 60 Est GFR (Non-Af Amer) > 60 Random Glucose 77 Calcium 9.3 Total Bilirubin 0.3 AST 60 H ALT 84 H Alkaline Phosphatase 77 Lactate Dehydrogenase 416 Total Creatine Kinase 112 Troponin I < 0.01 Total Protein 7.8 Albumin 4.1 Globulin 3.7 Albumin/Globulin Ratio 1.1 Assessment & Plan - Assessment and Plan (Free Text) Assessment: 51 year old male with PMHx of IV heroin abuse and asthma who presents to the ED with chest pain and sob. R/O ACS. 1. Chest pain R/O ACS - Started on Aspirin 81mg daily - Trop x 1 neg - EKG reviewed, EKG in the am - Serial troponin - Cardiology consulted for recs - U tox, Hba1c, TSH, Lipid profile - Echo ordered - Daily labs 2. Elevated LFTs - Acute hep panel ordered - F/u abdominal US - Cont to trend LFTs - Consider GI consult if persistently elevated 3. Hx of drug abuse - Admits to heroin use - Educated regarding the importance of abstinence from any recreational drugs - F/u U tox 4. GI/DVT ppx - Protonix and HSQ Case and plan was reviewed and discussed with Dr Powell.
[2017-09-17] MEDS ORDERED: Sodium Chloride 0.9% 1,000 ML IV SCH (23:30)
[2017-09-17 23:47] LABS: HDL CHOLESTEROL 47 mg/dL (29-60)
[2017-09-17 23:58] LABS: LDL CHOLESTEROL 67 mg/dL (0-129)
[2017-09-18] MEDS ORDERED: Pantoprazole 40 mg EC Tab PO SCH (06:00)
[2017-09-18 06:48] LABS: BASO # 0.02 K/mm3 (0.0-2.0); BASO % 0.2 % (0.0-3.0); EOS # 0.4 (0.0-0.7); EOS % 4.2 % (1.5-5.0); GRAN # 5.21 (1.4-6.5); LYMPH # 2.2 (1.2-3.4); LYMPH % 26.1 % (22.0-35.0); MEAN CELL VOLUME 90.9 fl (80.0-105.0); MEAN CORPUSCULAR HEMOGLOBIN 30.3 pg (25.0-35.0); MEAN CORPUSCULAR HGB CONC 33.3 g/dl (31.0-37.0); MEAN PLATELET VOLUME 8.6 fl (7.0-11.0); MONO # 0.5 (0.1-0.6); MONO % 6.5 % (1.0-6.0); RBC 3.63 10^6/uL (3.5-6.1); RED CELL DISTRIBUTION WIDTH 14.9 % (11.5-14.5); WHITE BLOOD COUNT 8.3 10^3/ul (4.5-11.0)
[2017-09-18 07:29] LABS: ALBUMIN 3.3 g/dL (3.0-4.8); ALT/SGPT 82 U/L (7-56); AST/SGOT 56 U/L (17-59); BLOOD UREA NITROGEN 17 mg/dL (7-21); CALCIUM 8.8 mg/dL (8.4-10.5); GFR AFRICAN-AMERICAN > 60; GFR NON-AFRICAN AMERICAN > 60
[2017-09-18 07:49] VITALS: BP 103/70; PULSE 56; RESP 18; TEMP 97.7; O2SAT 97
[2017-09-18 08:21] LABS: FREE T4 1.24 ng/dL (0.78-2.19)
--- NOTE | 2017-09-18 08:45 | RAD ---
HISTORY: chest pain COMPARISON: 04/29/2017 FINDINGS: LUNGS: No active pulmonary disease. PLEURA: No significant pleural effusion identified, no pneumothorax apparent. CARDIOVASCULAR: Normal. OSSEOUS STRUCTURES: No significant abnormalities. VISUALIZED UPPER ABDOMEN: Normal. OTHER FINDINGS: None. IMPRESSION: No active disease.
--- NOTE | 2017-09-18 10:29 | US ---
HISTORY: elevated LFTs COMPARISON: None. TECHNIQUE: Sonographic evaluation of the abdomen. FINDINGS: LIVER: Measures cm. Normal echogenicity of the liver parenchyma. No mass. No intrahepatic bile duct dilatation. GALLBLADDER: Unremarkable. No gallstones. COMMON BILE DUCT: Measures mm. No stones. No dilatation. PANCREAS: Unremarkable as visualized. No mass. No ductal dilatation. RIGHT KIDNEY: Measures cm. Normal echogenicity. No calculus, mass, or hydronephrosis. LEFT KIDNEY: Measures cm. Normal echogenicity. No calculus, mass, or hydronephrosis. SPLEEN: Normal in size and contour. No mass. AORTA: No aneurysmal dilatation. IVC: Unremarkable. OTHER FINDINGS: None. IMPRESSION: Unremarkable abdominal sonogram.
--- NOTE | 2017-09-18 11:46 | CARD ---
APPROVED REPORT EKG Measurement Heart [id number] <Conclusion> Sinus bradycardia LVH No change except the rate is slower.
[2017-09-18 12:31] LABS: HEPATITIS B SURFACE AG Negative (NEGATIVE)
[2017-09-18 12:37] LABS: HEPATITIS A IGM NEGATIVE (NEGATIVE); HEPATITIS B CORE AB NEGATIVE (NEGATIVE)
--- NOTE | 2017-09-18 14:06 | CARD ---
APPROVED REPORT EKG Measurement Heart [id number] 130P60 [id number] <Conclusion> Normal sinus rhythm Possible Left atrial enlargement Left ventricular hypertrophy Abnormal ECG
[2017-09-18 14:25] LABS: HEPATITIS C ANTIBODY REACTIVE (NEGATIVE)
--- NOTE | 2017-09-18 14:38 | CP.PCM.DIS ---
<Mia Ayoub - Last Filed: 09/18/17 14:32> Provider - Provider Date of Admission: 09/17/17 22:37 Attending physician: Kalina Rudolph MD Consults: Cardio Allie Time Spent in preparation of Discharge (in minutes): 60 Diagnosis - Discharge Diagnosis (1) Chest pain Status: Acute Hospital Course - Lab Results Lab Results: Most Recent Lab Values WBC 8.3 10^3/ul (4.5-11.0) 09/18/17 05:30 RBC 3.63 10^6/uL (3.5-6.1) 09/18/17 05:30 Hgb 11.0 g/dL (14.0-18.0) L 09/18/17 05:30 Hct 33.0 % (42.0-52.0) L 09/18/17 05:30 MCV 90.9 fl (80.0-105.0) 09/18/17 05:30 MCH 30.3 pg (25.0-35.0) 09/18/17 05:30 MCHC 33.3 g/dl (31.0-37.0) 09/18/17 05:30 RDW 14.9 % (11.5-14.5) H 09/18/17 05:30 Plt Count 244 10^3/uL (120.0-450.0) 09/18/17 05:30 MPV 8.6 fl (7.0-11.0) 09/18/17 05:30 Gran % 63.0 % (50.0-68.0) 09/18/17 05:30 Lymph % (Auto) 26.1 % (22.0-35.0) 09/18/17 05:30 Turner % (Auto) 6.5 % (1.0-6.0) H 09/18/17 05:30 Eos % (Auto) 4.2 % (1.5-5.0) 09/18/17 05:30 Baso % (Auto) 0.2 % (0.0-3.0) 09/18/17 05:30 Gran # 5.21 (1.4-6.5) 09/18/17 05:30 Lymph # (Auto) 2.2 (1.2-3.4) 09/18/17 05:30 Turner # (Auto) 0.5 (0.1-0.6) 09/18/17 05:30 Eos # (Auto) 0.4 (0.0-0.7) 09/18/17 05:30 Baso # (Auto) 0.02 K/mm3 (0.0-2.0) 09/18/17 05:30 PT 13.4 SECONDS (9.4-12.5) H 09/17/17 21:25 INR 1.17 (0.93-1.08) H 09/17/17 21:25 APTT 33.2 Seconds (25.1-36.5) 09/17/17 21:25 Sodium 144 mmol/L (132-148) 09/18/17 05:30 Potassium 4.0 mmol/L (3.6-5.0) 09/18/17 05:30 Chloride 105 mmol/L (98-107) 09/18/17 05:30 Carbon Dioxide 31 mmol/L (21-33) 09/18/17 05:30 Anion Gap 12 (10-20) 09/18/17 05:30 BUN 17 mg/dL (7-21) 09/18/17 05:30 Creatinine 0.6 mg/dl (0.8-1.5) L 09/18/17 05:30 Est GFR ( Amer) > 60 09/18/17 05:30 Est GFR (Non-Af Amer) > 60 09/18/17 05:30 Random Glucose 91 mg/dL (70-110) 09/18/17 05:30 Hemoglobin A1c 5.6 % (4.2-6.5) 09/17/17 21:25 Calcium 8.8 mg/dL (8.4-10.5) 09/18/17 05:30 Total Bilirubin 0.4 mg/dL (0.2-1.3) 09/18/17 05:30 AST 56 U/L (17-59) 09/18/17 05:30 ALT 82 U/L (7-56) H 09/18/17 05:30 Alkaline Phosphatase 73 U/L (38-126) 09/18/17 05:30 Lactate Dehydrogenase 416 U/L (333-699) 09/17/17 21:25 Total Creatine Kinase 112 U/L (35-230) 09/17/17 21:25 Troponin I < 0.01 ng/mL 09/18/17 05:30 Total Protein 6.6 g/dL (5.8-8.3) 09/18/17 05:30 Albumin 3.3 g/dL (3.0-4.8) 09/18/17 05:30 Globulin 3.3 gm/dL 09/18/17 05:30 Albumin/Globulin Ratio 1.0 (1.1-1.8) L 09/18/17 05:30 Triglycerides 83 mg/dL (35-160) 09/17/17 21:25 Cholesterol 146 mg/dL (130-200) 09/17/17 21:25 LDL Cholesterol Direct 67 mg/dL (0-129) 09/17/17 21:25 HDL Cholesterol 47 mg/dL (29-60) 09/17/17 21:25 Free T4 1.24 ng/dL (0.78-2.19) 09/18/17 07:50 TSH 3rd Generation 0.13 mIU/mL (0.46-4.68) L 09/18/17 07:50 Hepatitis A IgM Ab Negative (NEGATIVE) 09/17/17 21:25 Hep Bs Antigen Negative (NEGATIVE) 09/17/17 21:25 Hep B Core IgM Ab Negative (NEGATIVE) 09/17/17 21:25 Hepatitis C Antibody Reactive (NEGATIVE) 09/17/17 21:25 - Hospital Course Hospital Course: 51 year old male with PMHx of IV heroin abuse and asthma who presents to the ED with chest pain and sob. Patient states that his chest pain first started yesterday night, lasting 2 miniutes, describes it as pressure like. He states that the pain is localized to his L chest and denies any radiation down his L arm or neck. He does complain of mild sob and some nausea but denies any vomiting. He states that he had a similar episode a few months ago but he took "some pill" and it went away. EKg showed NSR, trops neg x3. Pt vaguely recalls that he had a stress test done at [facility] in 2017, which was negative. Patient then wanted to leave the hospital since its "morning time and the weather is nice." Pt told to stay in the hospital to be evaluated by cardiology and the bolt sorter. Pt explains the risks of leaving and benefits of getting appropriate treatment. Pt states that he understands and would like to leave AMA. Discharge Exam - Head Exam Head Exam: ATRAUMATIC, NORMOCEPHALIC - Eye Exam Eye Exam: EOMI, PERRL. absent: Conjunctival injection, Nystagmus, Scleral icterus Pupil Exam: NORMAL ACCOMODATION, PERRL. absent: Fixed, Irregular, Unequal - ENT Exam ENT Exam: Mucous Membranes Moist - Neck Exam Neck exam: Full Rom - Respiratory Exam Respiratory Exam: Clear to PA & Lateral, NORMAL BREATHING PATTERN. absent: Accessory Muscle Use, Chest Wall Tenderness, Wheezes, Respiratory Distress, Stridor - Cardiovascular Exam Cardiovascular Exam: RRR, +S1, +S2. absent: Systolic Murmur - GI/Abdominal Exam GI & Abdominal Exam: Normal Bowel Sounds, Soft. absent: Distended, Firm, Guarding, Rigid, Tenderness - Extremities Exam Extremities exam: normal inspection - Back Exam Back exam: NORMAL INSPECTION - Neurological Exam Neurological exam: Alert, Oriented x3 - Psychiatric Exam Psychiatric exam: Normal Affect, Normal Mood - Skin Skin Exam: Dry, Normal Color, Warm Discharge Plan - Follow Up Plan Condition: STABLE Disposition: AGAINST MEDICAL ADVICE Additional Instructions: 1. Continue Cephalexin and Doxycycline that was prescribed when you were discharged from [facility] on 09/12/17. 2. Follow up with [facility] [place] for this hospital visit and hyperthyroidism 3. Change packing daily. Follow up with Dr. Marshall in 1 week from discharge. Referrals: [facility] [Outside] <Kalina Rudolph - Last Filed: 09/18/17 14:50> Provider - Provider Date of Admission: 09/17/17 22:37 Attending physician: Kalina Rudolph MD Hospital Course - Lab Results Lab Results: Most Recent Lab Values WBC 8.3 10^3/ul (4.5-11.0) 09/18/17 05:30 RBC 3.63 10^6/uL (3.5-6.1) 09/18/17 05:30 Hgb 11.0 g/dL (14.0-18.0) L 09/18/17 05:30 Hct 33.0 % (42.0-52.0) L 09/18/17 05:30 MCV 90.9 fl (80.0-105.0) 09/18/17 05:30 MCH 30.3 pg (25.0-35.0) 09/18/17 05:30 MCHC 33.3 g/dl (31.0-37.0) 09/18/17 05:30 RDW 14.9 % (11.5-14.5) H 09/18/17 05:30 Plt Count 244 10^3/uL (120.0-450.0) 09/18/17 05:30 MPV 8.6 fl (7.0-11.0) 09/18/17 05:30 Gran % 63.0 % (50.0-68.0) 09/18/17 05:30 Lymph % (Auto) 26.1 % (22.0-35.0) 09/18/17 05:30 Turner % (Auto) 6.5 % (1.0-6.0) H 09/18/17 05:30 Eos % (Auto) 4.2 % (1.5-5.0) 09/18/17 05:30 Baso % (Auto) 0.2 % (0.0-3.0) 09/18/17 05:30 Gran # 5.21 (1.4-6.5) 09/18/17 05:30 Lymph # (Auto) 2.2 (1.2-3.4) 09/18/17 05:30 Turner # (Auto) 0.5 (0.1-0.6) 09/18/17 05:30 Eos # (Auto) 0.4 (0.0-0.7) 09/18/17 05:30 Baso # (Auto) 0.02 K/mm3 (0.0-2.0) 09/18/17 05:30 PT 13.4 SECONDS (9.4-12.5) H 09/17/17 21:25 INR 1.17 (0.93-1.08) H 09/17/17 21:25 APTT 33.2 Seconds (25.1-36.5) 09/17/17 21:25 Sodium 144 mmol/L (132-148) 09/18/17 05:30 Potassium 4.0 mmol/L (3.6-5.0) 09/18/17 05:30 Chloride 105 mmol/L (98-107) 09/18/17 05:30 Carbon Dioxide 31 mmol/L (21-33) 09/18/17 05:30 Anion Gap 12 (10-20) 09/18/17 05:30 BUN 17 mg/dL (7-21) 09/18/17 05:30 Creatinine 0.6 mg/dl (0.8-1.5) L 09/18/17 05:30 Est GFR ( Amer) > 60 09/18/17 05:30 Est GFR (Non-Af Amer) > 60 09/18/17 05:30 Random Glucose 91 mg/dL (70-110) 09/18/17 05:30 Hemoglobin A1c 5.6 % (4.2-6.5) 09/17/17 21:25 Calcium 8.8 mg/dL (8.4-10.5) 09/18/17 05:30 Total Bilirubin 0.4 mg/dL (0.2-1.3) 09/18/17 05:30 AST 56 U/L (17-59) 09/18/17 05:30 ALT 82 U/L (7-56) H 09/18/17 05:30 Alkaline Phosphatase 73 U/L (38-126) 09/18/17 05:30 Lactate Dehydrogenase 416 U/L (333-699) 09/17/17 21:25 Total Creatine Kinase 112 U/L (35-230) 09/17/17 21:25 Troponin I < 0.01 ng/mL 09/18/17 05:30 Total Protein 6.6 g/dL (5.8-8.3) 09/18/17 05:30 Albumin 3.3 g/dL (3.0-4.8) 09/18/17 05:30 Globulin 3.3 gm/dL 09/18/17 05:30 Albumin/Globulin Ratio 1.0 (1.1-1.8) L 09/18/17 05:30 Triglycerides 83 mg/dL (35-160) 09/17/17 21:25 Cholesterol 146 mg/dL (130-200) 09/17/17 21:25 LDL Cholesterol Direct 67 mg/dL (0-129) 09/17/17 21:25 HDL Cholesterol 47 mg/dL (29-60) 09/17/17 21:25 Free T4 1.24 ng/dL (0.78-2.19) 09/18/17 07:50 TSH 3rd Generation 0.13 mIU/mL (0.46-4.68) L 09/18/17 07:50 Hepatitis A IgM Ab Negative (NEGATIVE) 09/17/17 21:25 Hep Bs Antigen Negative (NEGATIVE) 09/17/17 21:25 Hep B Core IgM Ab Negative (NEGATIVE) 09/17/17 21:25 Hepatitis C Antibody Reactive (NEGATIVE) 09/17/17 21:25 Attending/Attestation - Attestation I have reviewed all pertinent clinical information, including history, physical exam and plan: Yes Notes (Text): 09/18/17 14:49 Patient signed out AMA prior to my rounds.
== END 2017-09-18 11:07 | disposition left against medical advice (07) ==
LOC: ED 21:05 → ERH 22:37 → 3RNO 23:34
PROVIDERS: ADMIT Hospitalist; ATTEND Internal Medicine
DX: R07.9 Chest pain, unspecified (principal); J45.909 Unspecified asthma, uncomplicated; F11.10 Opioid abuse, uncomplicated; F17.210 Nicotine dependence, cigarettes, uncomplicated; R79.89 Other specified abnormal findings of blood chemistry
CPT/HCPCS: 36415; 71045; 76700; 80053; 80061; 80074; 82550; 83036; 83615; 84439; 84443; 84484; 85025; 85027; 85610; 85730; 93005; 99285; G0378; J1644; J7040

== ENCOUNTER 2017-11-04 21:56 | Observation (INO) | payer MEDICAID, OTHER ==
[2017-11-04 21:56] VITALS: BMI 21.9
[2017-11-04 22:42] LABS: URINE BILIRUBIN NEGATIVE (NEGATIVE); URINE BLOOD NEGATIVE (NEGATIVE); URINE GLUCOSE (UA) NEGATIVE (NEGATIVE); URINE LEUKOCYTE ESTERASE NEGATIVE Leu/uL (NEGATIVE); URINE PROTEIN NEGATIVE mg/dL (<30 mg/dL)
[2017-11-04 22:44] LABS: VENOUS BLOOD GAS BASE EXCESS 8.8 mmol/L (0.0-2.0); VENOUS BLOOD GAS PO2 90 mm/Hg (30-55); VENOUS BLOOD PH 7.46 (7.32-7.43)
[2017-11-04] MEDS ORDERED: Sodium Chloride 0.9% 1,000 ML IV SCH (22:45)
[2017-11-04 22:46] LABS: URINE APPEARANCE CLEAR (CLEAR); URINE COLOR YELLOW (YELLOW)
[2017-11-04 22:57] LABS: ALB/GLOB RATIO 1.1 (1.1-1.8); ALBUMIN 3.6 g/dL (3.0-4.8); ALT/SGPT 325 U/L (7-56); AST/SGOT 151 U/L (17-59); BLOOD UREA NITROGEN 18 mg/dL (7-21); CALCIUM 8.7 mg/dL (8.4-10.5); GFR AFRICAN-AMERICAN > 60; GFR NON-AFRICAN AMERICAN > 60
[2017-11-04 23:06] LABS: BASO # 0.01 K/mm3 (0.0-2.0); BASO % 0.1 % (0.0-3.0); EOS % 0.4 % (1.5-5.0); GRAN # 8.72 (1.4-6.5); GRAN % 85.6 % (50.0-68.0); HEMOGLOBIN 11.2 g/dL (14.0-18.0); LYMPH # 0.8 (1.2-3.4); LYMPH % 7.7 % (22.0-35.0); MEAN CELL VOLUME 91.2 fl (80.0-105.0); MEAN CORPUSCULAR HEMOGLOBIN 30.7 pg (25.0-35.0); MEAN CORPUSCULAR HGB CONC 33.6 g/dl (31.0-37.0); MEAN PLATELET VOLUME 9.5 fl (7.0-11.0); MONO # 0.6 (0.1-0.6); MONO % 6.2 % (1.0-6.0); RBC 3.65 10^6/uL (3.5-6.1); RED CELL DISTRIBUTION WIDTH 14.2 % (11.5-14.5); WHITE BLOOD COUNT 10.2 10^3/ul (4.5-11.0)
[2017-11-04 23:09] LABS: B-TYPE NATRIURETIC PEPTIDE 81.1 pg/mL (0-450); TROPONIN I 0.01 ng/mL
[2017-11-04 23:26] LABS: INR 1.27 (0.93-1.08); PROTHROMBIN TIME 14.6 SECONDS (9.4-12.5)
[2017-11-05 00:15] LABS: BARBITURATES, UR NEGATIVE (NEGATIVE); BENZODIAZEPINES, UR NEGATIVE (NEGATIVE); OPIATES, UR POSITIVE (NEGATIVE); PHENCYCLIDINE, UR NEGATIVE (NEGATIVE)
[2017-11-05] MEDS ORDERED: Iohexol 350 MG/100 ML VIAL ONE (00:21)
--- NOTE | 2017-11-05 00:51 | ED PDOC ---
Arrival/HPI - General Chief Complaint: Chest Pain Time Seen by Provider: 11/04/17 21:57 Historian: Patient - History of Present Illness Narrative History of Present Illness (Text): 11/05/17 00:47 52 year old male, with no significant past medical history, who presents to the emergency department complaining of left sided chest pain and shortness of breath s/p heroine IV use. Patient denies any fever, chills, nausea, vomiting, diarrhea, back pain, neck pain, headache, dizziness, or any other complaints. Time/Duration: Prior to Arrival Symptom Onset: Sudden Symptom Course: Unchanged Activities at Onset: Light Context: Home Past Medical History - Provider Review Nursing Documentation Reviewed: Yes - Infectious Disease Hx of Infectious Diseases: None - Cardiac Hx Hypertension: No - Pulmonary Hx Asthma: Yes - Neurological Hx Seizures: No - HEENT Hx HEENT Disorder: No - Renal Hx Renal Disorder: No - Endocrine/Metabolic Hx Endocrine Disorders: No - Hematological/Oncological Hx Blood Disorders: No - Integumentary Hx Dermatological Disorder: Yes Hx Cellulitis: Yes - Musculoskeletal/Rheumatological Hx Musculoskeletal Disorders: No - Gastrointestinal Hx Gastrointestinal Disorders: No - Genitourinary/Gynecological Hx Sexually Transmitted Diseases: Yes - Psychiatric Hx Anxiety: Yes Hx Depression: Yes Hx Substance Use: Yes (herion last used today) - Surgical History Other/Comment: R arm cyst removal - Anesthesia Hx Anesthesia: Yes Hx Anesthesia Reactions: No Hx Malignant Hyperthermia: No Family/Social History - Physician Review Nursing Documentation Reviewed: Yes Family/Social History: Unknown Family HX Smoking Status: Former Smoker Hx Alcohol Use: Yes Frequency of alcohol use: Few days per week Hx Substance Use: Yes (herion last used today) Substance used: Heroin Allergies/Home Meds Allergies/Adverse Reactions: Allergies No Known Allergies Allergy (Verified 11/04/17 22:07) Home Medications: Home Meds Medication Instructions Recorded Confirmed No Known Home Med 11/04/17 11/04/17 Review of Systems - Physician Review All systems were reviewed & negative as marked: Yes - Review of Systems Constitutional: Normal Eyes: Normal ENT: Normal Respiratory: SOB. absent: Cough Cardiovascular: Chest Pain (left sided CP) Gastrointestinal: Normal. absent: Abdominal Pain, Diarrhea, Nausea, Vomiting Genitourinary Male: Normal. absent: Dysuria, Frequency, Hematuria Musculoskeletal: Normal. absent: Back Pain, Neck Pain Skin: Normal. absent: Rash Neurological: Normal. absent: Headache, Dizziness Endocrine: Normal Hemo/Lymphatic: Normal Psychiatric: Normal Physical Exam Vital Signs Reviewed: Yes Vital Signs Temp Pulse Resp BP Pulse Ox 11/05/17 05:12 56 L 18 98/57 L 97 11/05/17 04:00 66 18 105/64 97 11/05/17 02:00 72 18 124/65 97 11/05/17 00:00 85 18 130/68 97 11/04/17 22:40 102 F H 11/04/17 22:08 102 F H 121 H 20 155/67 H 94 L Temperature: Febrile Blood Pressure: Normal Pulse: Tachycardic Respiratory Rate: Normal Appearance: Positive for: Well-Appearing, Non-Toxic, Comfortable Pain Distress: None Mental Status: Positive for: Alert and Oriented X 3 - Systems Exam Head: Present: Atraumatic, Normocephalic Pupils: Present: PERRL Extroacular Muscles: Present: EOMI Conjunctiva: Present: Normal Mouth: Present: Moist Mucous Membranes Neck: Present: Normal Range of Motion. No: Meningeal Signs, MIDLINE TENDERNESS Respiratory/Chest: Present: Clear to Auscultation, Good Air Exchange. No: Respiratory Distress, Accessory Muscle Use Cardiovascular: Present: Regular Rate and Rhythm, Normal S1, S2. No: Murmurs Abdomen: No: Tenderness, Distention, Peritoneal Signs Back: Present: Normal Inspection. No: CVA Tenderness, Midline Tenderness, Paraspinal Tenderness Upper Extremity: Present: Normal Inspection. No: Cyanosis, Edema Lower Extremity: Present: Normal Inspection. No: Edema Neurological: Present: GCS=15, CN II-XII Intact, Speech Normal Skin: Present: Warm, Dry, Normal Color. No: Rashes Psychiatric: Present: Alert, Oriented x 3, Normal Insight, Normal Concentration Medical Decision Making ED Course and Treatment: 11/05/17 00:50 Impression: 52 year old male presents to the emergency department complaining of left sided chest pain and shortness of breath s/p heroine use. Plan: -- EKG -- CT Angio Chest -- Chest X-ray -- Sodium Chloride -- Tylenol -- Blood Culture -- Reassess and disposition Progress Notes: 11/05/17 02:56 CT angio xgwat reviewed, shows: FINDINGS: Pulmonary arteries: Unremarkable. No pulmonary embolism. Aorta: No acute findings. No thoracic aortic aneurysm. Lungs: Unremarkable. No mass. No consolidation. Pleural space: Unremarkable. No significant effusion. No pneumothorax. Heart: Unremarkable. No cardiomegaly. No significant pericardial effusion. No evidence of RV dysfunction. Bones/joints: No acute fracture. No dislocation. Soft tissues: Unremarkable. Lymph nodes: Unremarkable. No enlarged lymph nodes. Other findings: No acute findings. IMPRESSION: No acute findings - Lab Interpretations Lab Results: 11/04/17 22:35 11/04/17 22:35 Lab Results 11/04/17 22:35: pO2 90 H, VBG pH 7.46 H, VBG pCO2 48.0, VBG HCO3 34.1 H, VBG Total CO2 35.6 H, VBG O2 Sat (Calc) 99.4 H, VBG Base Excess 8.8 H, VBG Potassium 3.9, Sodium 139.0, Chloride 105.0, Glucose 133 H, Lactate 1.7, FiO2 21.0, Venous Blood Potassium 3.9 11/04/17 22:35: Sodium 141, Chloride 101, Potassium 3.8, Carbon Dioxide 29, Anion Gap 14, BUN 18, Creatinine 0.7 L, Est GFR ( Amer) > 60, Est GFR ( Non-Af Amer) > 60, Random Glucose 124 H, Calcium 8.7, Magnesium 1.8, Total Bilirubin 0.6, AST 151 H D, ALT 325 H, Alkaline Phosphatase 102, Lactate Dehydrogenase 423, Total Creatine Kinase 76, Troponin I 0.01, NT-Pro-B Natriuret Pep 81.1, Total Protein 6.8, Albumin 3.6, Globulin 3.2, Albumin/ Globulin Ratio 1.1 11/04/17 22:35: PT 14.6 H, INR 1.27 H, APTT 30.0, D-Dimer, Quantitative 660 H 11/04/17 22:35: WBC 10.2 D, RBC 3.65, Hgb 11.2 L, Hct 33.3 L, MCV 91.2, MCH 30.7, MCHC 33.6, RDW 14.2, Plt Count 207, MPV 9.5, Gran % 85.6 H, Lymph % (Auto ) 7.7 L, Mcmullen % (Auto) 6.2 H, Eos % (Auto) 0.4 L, Baso % (Auto) 0.1, Gran # 8.72 H, Lymph # (Auto) 0.8 L, Mcmullen # (Auto) 0.6, Eos # (Auto) 0.0, Baso # (Auto ) 0.01 11/04/17 22:30: Urine Color Yellow, Urine Appearance Clear, Urine pH 6.0, Ur Specific [place] 1.020, Urine Protein Negative, Urine Glucose (UA) Negative, Urine Ketones Trace H, Urine Blood Negative, Urine Nitrate Negative, Urine Bilirubin Negative, Urine Urobilinogen 1.0 H, Ur Leukocyte Esterase Negative 11/04/17 22:15: Urine Opiates Screen Positive H, Urine Methadone Screen Negative , Ur Barbiturates Screen Negative, Ur Phencyclidine Scrn Negative, Ur Amphetamines Screen Negative, U Benzodiazepines Scrn Negative, U Oth Cocaine Metabols Negative, U Cannabinoids Screen Positive H - RAD Interpretation Radiology Orders: 11/04/17 22:20 CHEST PORTABLE [RAD] Stat 11/05/17 00:00 ANGIO CHEST PE PROTOCOL [CT] Stat - EKG Interpretation EKG Interpretation (Text): 11/05/17 05:17 sinus tachycardia 120 nsstc changes - Medication Orders Current Medication Orders: Acetaminophen (Tylenol 325mg Tab) 650 mg PO Q6H PRN PRN Reason: Fever >100.4 F Aspirin (Ecotrin) 81 mg PO DAILY ARCELIA Clonidine HCl (Catapres) 0.1 mg PO Q4H PRN PRN Reason: symptoms of opioid withdrawal Sodium Chloride (Sodium Chloride 0.9%) 1,000 mls @ 80 mls/hr IV .[id number] ARCELIA Last Admin: 11/04/17 22:40 Dose: 80 mls/hr eMAR Start Stop Document 11/04/17 22:40 JOL (Rec: 11/04/17 22:40 [id number] Intravenous Solution Start Date 11/04/17 Start Time 22:40 Vancomycin HCl (Vancomycin 1gm) 1 gm in 250 mls @ 167 mls/hr IVPB STAT STA PRN Reason: Protocol Stop: 11/05/17 05:22 Last Admin: 11/05/17 05:02 Dose: 167 mls/hr eMAR Start Stop Document 11/05/17 05:02 JOL (Rec: 11/05/17 05:03 JOL [id number]) Intravenous Solution Start Date 11/05/17 Start Time 05:02 End Date 11/05/17 End time 06:32 Total Infusion Time 90 Vancomycin HCl (Vancomycin 1gm) 1 gm in 250 mls @ 167 mls/hr IVPB DAILY ARCELIA PRN Reason: Protocol Piperacillin Sod/Tazobactam Sod (Zosyn 3.375 In Ns 100ml) 100 mls @ 200 mls/hr IVPB Q6 ARCELIA PRN Reason: Protocol Stop: 11/05/17 12:29 Nitroglycerin (Nitrostat Sl Tab) 0.4 mg SL Q5MIN PRN PRN Reason: chest pain Ondansetron HCl (Zofran Inj) 4 mg IVP Q4H PRN PRN Reason: Nausea/Vomiting Pantoprazole Sodium (Protonix Inj) 40 mg IVP DAILY ARCELIA Discontinued Medications Acetaminophen (Tylenol 325mg Tab) 650 mg PO STAT STA Stop: 11/04/17 22:23 Last Admin: 11/04/17 22:40 Dose: 650 mg MAR Pain/Vitals Document 11/04/17 22:40 JOL (Rec: 11/04/17 22:40 [id number] Pain Reassessment Is This A Pain ReAssessment? No Sleep Is patient sleeping during reassessment? No Presence of Pain Presence of Pain No Vitals Temperature (97.6 F-99.6 F) 102 F Temperature Source Oral Aspirin (Aspirin) 325 mg PO STAT STA Stop: 11/05/17 04:31 Piperacillin Sod/Tazobactam Sod (Zosyn 3.375 In Ns 100ml) 100 mls @ 200 mls/hr IVPB STAT STA PRN Reason: Protocol Stop: 11/05/17 04:23 Last Admin: 11/05/17 05:03 Dose: 200 mls/hr eMAR Start Stop Document 11/05/17 05:03 JOL (Rec: 11/05/17 05:03 [id number]) Intravenous Solution Start Date 11/05/17 Start Time 04:20 End Date 11/05/17 End time 04:50 Total Infusion Time 30 - Scribe Statement The provider has reviewed the documentation as recorded by the Scribkg Cam All medical record entries made by the Scribe were at my direction and personally dictated by me. I have reviewed the chart and agree that the record accurately reflects my personal performance of the history, physical exam, medical decision making, and the department course for this patient. I have also personally directed, reviewed, and agree with the discharge instructions and disposition. Disposition/Present on Arrival - Present on Arrival History of DVT/PE: No History of Uncontrolled Diabetes: No Urinary Catheter: No History of Decub. Ulcer: No History Surgical Site Infection Following: None - Disposition
[2017-11-05] MEDS ORDERED: Vancomycin 1gm in NS 250ml 1 GM/250 ML BAG IVPB STA ×2 (03:53→07:20)
[2017-11-05] MEDS ORDERED: Piperacillin/Tazobact 3.375 gm 100 ML IVPB STA (03:54)
--- NOTE | 2017-11-05 04:24 | CP.PCM.HP ---
<Neelima Multani - Last Filed: 11/05/17 05:39> History of Present Illness - History of Present Illness History of Present Illness: History and Physical - Hospitalist Service CC: My chest hurts HPI: Patient is a 52 year old male with past medical history of IV drug abuse, Hep C (untreated), asthma presents to [facility] for left sided chest pain and shortness of breath that started a couple of nights ago, but has progressively gotten worse. States that he has had this pain before in the past. He has been evaluated in the ER multiple times for the same complaint. Patient states that the chest pain is left sided and radiates to the left arm. He admits to feeling diaphoretic at that time. He didn't take anything for the pain, states that he called EMS to bring him to the hospital. In EMS patient was given ASA 325mg PO x 1 and Nitro x 1. Patient reports snorting and injecting heroin today. At time of interview, chest pain was better. Pain scale was 0/0. He denies fevers, nausea/vomiting, cough, palpitations, abdominal pain, urinary symptoms, changes in bowel habits. Patient denies any sick contacts or recent travel. ED course: Vancomycin 1 gm, Zosyn 3.375mg, Tylenol 650mg PO x 1 Allergies: NKDA Medications: Denies Medical History: Hep C (untreated) Surgical History: R arm abscess drainage Social History: Heroin abuse (Injecting and snorting), denies alcohol use, smokes cigarettes occasionally; lives alone, Family History: Denies Present on Admission - Present on Admission Any Indicators Present on Admission: No Past Patient History - Infectious Disease Hx of Infectious Diseases: None - Past Medical History & Family History Past Medical History?: Yes - Past Social History Smoking Status: Former Smoker - CARDIAC Hx Hypertension: No - PULMONARY Hx Asthma: Yes - NEUROLOGICAL Hx Seizures: No - HEENT Hx HEENT Problems: No - RENAL Hx Chronic Kidney Disease: No - ENDOCRINE/METABOLIC Hx Endocrine Disorders: No - HEMATOLOGICAL/ONCOLOGICAL Hx Blood Disorders: No - INTEGUMENTARY Hx Dermatological Problems: Yes Hx Cellulitis: Yes - MUSCULOSKELETAL/RHEUMATOLOGICAL Hx Musculoskeletal Disorders: No - GASTROINTESTINAL Hx Gastrointestinal Disorders: No - GENITOURINARY/GYNECOLOGICAL Hx Sexually Transmitted Disorders: Yes - PSYCHIATRIC Hx Anxiety: Yes Hx Depression: Yes Hx Substance Use: Yes (herion last used today) - SURGICAL HISTORY Other/Comment: R arm cyst removal - ANESTHESIA Hx Anesthesia: Yes Hx Anesthesia Reactions: No Hx Malignant Hyperthermia: No Meds Allergies/Adverse Reactions: Allergies Allergy/AdvReac Type Severity Reaction Status Date / Time No Known Allergies Allergy Verified 11/04/17 22:07 Physical Exam - Constitutional Appears: Well, Non-toxic, No Acute Distress - Head Exam Head Exam: ATRAUMATIC, NORMAL INSPECTION, NORMOCEPHALIC - Eye Exam Eye Exam: EOMI, Normal appearance - ENT Exam ENT Exam: Mucous Membranes Moist - Neck Exam Neck exam: Positive for: Full Rom - Respiratory Exam Respiratory Exam: Clear to Auscultation Bilateral, NORMAL BREATHING PATTERN. absent: Rales, Rhonchi, Wheezes - Cardiovascular Exam Cardiovascular Exam: REGULAR RHYTHM, +S1, +S2 - GI/Abdominal Exam GI & Abdominal Exam: Normal Bowel Sounds, Soft. absent: Rebound, Rigid, Tenderness - Rectal Exam Rectal Exam: Deferred - Extremities Exam Extremities exam: Positive for: pedal pulses present. Negative for: calf tenderness Additional comments: Track guzmán on right arm - Back Exam Back exam: NORMAL INSPECTION - Neurological Exam Neurological exam: Alert, CN II-XII Intact, Oriented x3 - Psychiatric Exam Psychiatric exam: Normal Affect, Normal Mood - Skin Skin Exam: Dry, Normal Color, Warm Results - Vital Signs Recent Vital Signs: Last Vital Signs Temp 102 F H 11/04/17 22:40 Pulse 121 H 11/04/17 22:08 Resp 20 11/04/17 22:08 BP 155/67 H 11/04/17 22:08 Pulse Ox 94 L 11/04/17 22:08 - Labs Result Diagrams: 11/04/17 22:35 11/04/17 22:35 Assessment & Plan - Assessment and Plan (Free Text) Plan: A/P: Patient is a 52 year old male with past medical history of untreated Hepatitis C, IV drug abuse who presents to [facility] with chest pain. Also found to be febrile and tachycardic. Chest pain r/o acute coronary syndrome -Stable, Tmax 102 -Will admit to telemetry -EKG showed sinus tachycardia, possible left atrial enlargement, septal infarct (age undeterminant), no ST-T wave changes -Initial trop is negative, Trend troponins q8H x 2 -F/U echocardiogram -CXR completed, f/u official read -Aspirin 325mg PO x 1 dose was given in EMS -Aspirin 81mg PO daily, NItroglycerin SL prn chest pain -F/U fasting Lipid panel, TSH/Free T4 -Last Hga1c 5.17 Sep 2017 -Elevated D Dimer, CTA showed No acute findings -Cardiology on consult, help appreciated SIRS (r/o endocarditis and other infectious etiologies) -Patient was febrile and tachycardic on presentation -Source unknown at this time -Tylenol 650mg PO Q6H prn fever -NS @ 80cc/hr -F/U Blood cultures, Urine cultures, Procalcitonin -Continue Vancomycin 1gm daily, Zosyn 3.375mg Q6H -ID on consult, help appreciated Transaminitis -Patient has a history of untreated Hepatitis C -Denies recent Tylenol or alcohol use -Abdominal US 09/2017: unremarkable -AST/ALT 151/325, trending up from previous admission -F/U Hep C Viral load, HIV -Continue to monitor Polysubstance abuse -UTOX positive for Marijuana and Opioids -Clonidine 0.1mg PO Q4H prn withdrawal symptoms -Zofran 4mg Q4H prn nausea -Educated regarding the importance of abstinence from any recreational drugs -Patient states that he would like to quit GI/DVT ppx: -Protonix 40mg IVP daily -SCDs Plan discussed with Dr Mary Jane Multani DO PGY-1 <Tricia Hinton - Last Filed: 11/05/17 05:42> Results - Vital Signs Recent Vital Signs: Last Vital Signs Temp 102 F H 11/04/17 22:40 Pulse 56 L 11/05/17 05:12 Resp 18 11/05/17 05:12 BP 98/57 L 11/05/17 05:12 Pulse Ox 97 11/05/17 05:12 - Labs Result Diagrams: 11/04/17 22:35 11/04/17 22:35 Attending/Attestation - Attestation I have personally seen and examined this patient.: Yes I have fully participated in the care of the patient.: Yes I have reviewed all pertinent clinical information: Yes Notes (Text): 11/05/17 05:41 Patient was seen when he was in the ER. Agree with history, physical examination, assessment and plan.
[2017-11-05 05:13] VITALS: RESP 18; O2SAT 97
[2017-11-05 07:58] VITALS: PULSE 57
[2017-11-05 08:00] VITALS: BP 94/64; TEMP 98.4
[2017-11-05] MEDS ORDERED: Piperacillin/Tazobact 3.375 gm 100 ML IVPB SCH (11:00)
--- NOTE | 2017-11-05 12:05 | CP.PCM.DIS ---
<Chloe Madison - Last Filed: 11/05/17 17:25> Provider - Provider Date of Admission: 11/05/17 03:51 Attending physician: Kalina Rudolph MD Primary care physician: None Consults: ID: Dr Hairston Cardio: Dr Lal Time Spent in preparation of Discharge (in minutes): 45 Diagnosis - Discharge Diagnosis (1) Fever, unknown origin Status: Acute (2) Transaminasemia Status: Acute (3) Atypical chest pain Status: Resolved Hospital Course - Lab Results Lab Results: Most Recent Lab Values WBC 10.2 10^3/ul (4.5-11.0) D 11/04/17 22:35 RBC 3.65 10^6/uL (3.5-6.1) 11/04/17 22:35 Hgb 11.2 g/dL (14.0-18.0) L 11/04/17 22:35 Hct 33.3 % (42.0-52.0) L 11/04/17 22:35 MCV 91.2 fl (80.0-105.0) 11/04/17 22:35 MCH 30.7 pg (25.0-35.0) 11/04/17 22:35 MCHC 33.6 g/dl (31.0-37.0) 11/04/17 22:35 RDW 14.2 % (11.5-14.5) 11/04/17 22:35 Plt Count 207 10^3/uL (120.0-450.0) 11/04/17 22:35 MPV 9.5 fl (7.0-11.0) 11/04/17 22:35 Gran % 85.6 % (50.0-68.0) H 11/04/17 22:35 Lymph % (Auto) 7.7 % (22.0-35.0) L 11/04/17 22:35 Bee % (Auto) 6.2 % (1.0-6.0) H 11/04/17 22:35 Eos % (Auto) 0.4 % (1.5-5.0) L 11/04/17 22:35 Baso % (Auto) 0.1 % (0.0-3.0) 11/04/17 22:35 Gran # 8.72 (1.4-6.5) H 11/04/17 22:35 Lymph # (Auto) 0.8 (1.2-3.4) L 11/04/17 22:35 Bee # (Auto) 0.6 (0.1-0.6) 11/04/17 22:35 Eos # (Auto) 0.0 (0.0-0.7) 11/04/17 22:35 Baso # (Auto) 0.01 K/mm3 (0.0-2.0) 11/04/17 22:35 PT 14.6 SECONDS (9.4-12.5) H 11/04/17 22:35 INR 1.27 (0.93-1.08) H 11/04/17 22:35 APTT 30.0 Seconds (25.1-36.5) 11/04/17 22:35 D-Dimer, Quantitative 660 ng/mL (0-243) H 11/04/17 22:35 pO2 90 mm/Hg (30-55) H 11/04/17 22:35 VBG pH 7.46 (7.32-7.43) H 11/04/17 22:35 VBG pCO2 48.0 (40-60) 11/04/17 22:35 VBG HCO3 34.1 mmol/l (21-28) H 11/04/17 22:35 VBG Total CO2 35.6 mmol.L (22-28) H 11/04/17 22:35 VBG O2 Sat (Calc) 99.4 % (40-65) H 11/04/17 22:35 VBG Base Excess 8.8 mmol/L (0.0-2.0) H 11/04/17 22:35 VBG Potassium 3.9 mmol/L (3.6-5.2) 11/04/17 22:35 Sodium 139.0 mmol/L (132-148) 11/04/17 22:35 Chloride 105.0 mmol/L (98-107) 11/04/17 22:35 Glucose 133 mg/dl (75-110) H 11/04/17 22:35 Lactate 1.7 mmol/L (0.7-2.1) 11/04/17 22:35 FiO2 21.0 % 11/04/17 22:35 Sodium 141 mmol/L (132-148) 11/04/17 22:35 Potassium 3.8 mmol/L (3.6-5.0) 11/04/17 22:35 Chloride 101 mmol/L (98-107) 11/04/17 22:35 Carbon Dioxide 29 mmol/L (21-33) 11/04/17 22:35 Anion Gap 14 (10-20) 11/04/17 22:35 BUN 18 mg/dL (7-21) 11/04/17 22:35 Creatinine 0.7 mg/dl (0.8-1.5) L 11/04/17 22:35 Est GFR ( Amer) > 60 11/04/17 22:35 Est GFR (Non-Af Amer) > 60 11/04/17 22:35 Random Glucose 124 mg/dL (70-110) H 11/04/17 22:35 Calcium 8.7 mg/dL (8.4-10.5) 11/04/17 22:35 Magnesium 1.8 mg/dL (1.7-2.2) 11/04/17 22:35 Total Bilirubin 0.6 mg/dL (0.2-1.3) 11/04/17 22:35 AST 151 U/L (17-59) H D 11/04/17 22:35 ALT 325 U/L (7-56) H 11/04/17 22:35 Alkaline Phosphatase 102 U/L (38-126) 11/04/17 22:35 Lactate Dehydrogenase 423 U/L (333-699) 11/04/17 22:35 Total Creatine Kinase 76 U/L (35-230) 11/04/17 22:35 Troponin I 0.01 ng/mL 11/04/17 22:35 NT-Pro-B Natriuret Pep 81.1 pg/mL (0-450) 11/04/17 22:35 Total Protein 6.8 g/dL (5.8-8.3) 11/04/17 22:35 Albumin 3.6 g/dL (3.0-4.8) 11/04/17 22:35 Globulin 3.2 gm/dL 11/04/17 22:35 Albumin/Globulin Ratio 1.1 (1.1-1.8) 11/04/17 22:35 Venous Blood Potassium 3.9 mmol/L (3.6-5.2) 11/04/17 22:35 Urine Color Yellow (YELLOW) 11/04/17 22:30 Urine Appearance Clear (CLEAR) 11/04/17 22:30 Urine pH 6.0 (4.7-8.0) 11/04/17 22:30 Ur Specific [place] 1.020 (1.005-1.035) 11/04/17 22:30 Urine Protein Negative mg/dL (<30 mg/dL) 11/04/17 22:30 Urine Glucose (UA) Negative mg/dL (NEGATIVE) 11/04/17 22:30 Urine Ketones Trace mg/dL (NEGATIVE) H 11/04/17 22:30 Urine Blood Negative (NEGATIVE) 11/04/17 22:30 Urine Nitrate Negative (NEGATIVE) 11/04/17 22:30 Urine Bilirubin Negative (NEGATIVE) 11/04/17 22:30 Urine Urobilinogen 1.0 E.U./dL (<1 E.U./dL) H 11/04/17 22:30 Ur Leukocyte Esterase Negative Sofi/uL (NEGATIVE) 11/04/17 22:30 Urine Opiates Screen Positive (NEGATIVE) H 11/04/17 22:15 Urine Methadone Screen Negative (NEGATIVE) 11/04/17 22:15 Ur Barbiturates Screen Negative (NEGATIVE) 11/04/17 22:15 Ur Phencyclidine Scrn Negative (NEGATIVE) 11/04/17 22:15 Ur Amphetamines Screen Negative (NEGATIVE) 11/04/17 22:15 U Benzodiazepines Scrn Negative (NEGATIVE) 11/04/17 22:15 U Oth Cocaine Metabols Negative (NEGATIVE) 11/04/17 22:15 U Cannabinoids Screen Positive (NEGATIVE) H 11/04/17 22:15 Influenza Typ A,B (EIA) Negative for flu a/b (NEGATIVE) 11/05/17 10:10 - Hospital Course Hospital Course: 52 year old male with past medical history of IV drug abuse, Hep C (untreated), asthma presents to [facility] for left sided chest pain and shortness of breath that started a couple of nights ago, but has progressively gotten worse prompting the patient to come in. Patient admitted to using drug both iv and snorting prior to presenting. Drug screen was positive for opiate and cannabinoids. Troponin negative x1, with transaminitis. Patient was febrile, thus cultures were sent, echo was ordered to r/o endocarditis. Patient was started on vanco and zosyn. Ddimer was elevated , CTPE was negative for PE. Patient was suppose to be be seen by instrument calibrator, and infectious disease pending work ups, however patient decided to sign out AMA. Patient advised on the importance of staying and the possibility of developing sepsis, septic shock and dying. - Date & Time of H&P Date of H&P: 11/05/17 Time of H&P: 04:23 Discharge Exam - Head Exam Head Exam: ATRAUMATIC, NORMAL INSPECTION, NORMOCEPHALIC - Eye Exam Eye Exam: EOMI, Normal appearance, PERRL Pupil Exam: NORMAL ACCOMODATION - ENT Exam ENT Exam: Mucous Membranes Moist - Neck Exam Neck exam: Normal Inspection - Respiratory Exam Respiratory Exam: Clear to PA & Lateral, NORMAL BREATHING PATTERN, UNREMARKABLE. absent: Decreased Breath Sounds, Rales, Rhonchi, Wheezes, Respiratory Distress, Stridor - Cardiovascular Exam Cardiovascular Exam: REGULAR RHYTHM, RRR, +S1, +S2. absent: Bradycardia, Tachycardia, Gallop, Irregular Rhythm, JVD, Rubs, Systolic Murmur - GI/Abdominal Exam GI & Abdominal Exam: Normal Bowel Sounds, Unremarkable. absent: Distended, Firm , Guarding, Hernia, Rebound, Rigid, Soft, Tenderness - Extremities Exam Extremities exam: normal inspection - Back Exam Back exam: NORMAL INSPECTION - Neurological Exam Neurological exam: Alert, Oriented x3, Reflexes Normal - Psychiatric Exam Psychiatric exam: Normal Affect, Normal Mood - Skin Skin Exam: Abrasion, Dry, Rash, Warm Discharge Plan - Follow Up Plan Condition: GOOD Disposition: AGAINST MEDICAL ADVICE Patient education suggested?: No <Kalina Rudolph - Last Filed: 11/05/17 18:09> Provider - Provider Date of Admission: 11/05/17 03:51 Attending physician: Kalina Rudolph MD Hospital Course - Lab Results Lab Results: Most Recent Lab Values WBC 10.2 10^3/ul (4.5-11.0) D 11/04/17 22:35 RBC 3.65 10^6/uL (3.5-6.1) 11/04/17 22:35 Hgb 11.2 g/dL (14.0-18.0) L 11/04/17 22:35 Hct 33.3 % (42.0-52.0) L 11/04/17 22:35 MCV 91.2 fl (80.0-105.0) 11/04/17: MCH 30.7 pg (25.0-35.0) 11/04/17 22: MCHC 33.6 g/dl (31.0-37.0) 11/04/17: RDW 14.2 % (11.5-14.5) 11/04/17: Plt Count 207 10^3/uL (120.0-450.0) 11/04/17: MPV 9.5 fl (7.0-11.0) 11/04/17: Gran % 85.6 % (50.0-68.0) H 11/04/17 22:35 Lymph % (Auto) 7.7 % (22.0-35.0) L 11/04/17:35 Bee % (Auto) 6.2 % (1.0-6.0) H 11/04/17 22:35 Eos % (Auto) 0.4 % (1.5-5.0) L 11/04/17 22:35 Baso % (Auto) 0.1 % (0.0-3.0) 11/04/17: Gran # 8.72 (1.4-6.5) H 11/04/17:35 Lymph # (Auto) 0.8 (1.2-3.4) L 11/04/17:35 Bee # (Auto) 0.6 (0.1-0.6) 11/04/17 22:35 Eos # (Auto) 0.0 (0.0-0.7) 11/04/17 22:35 Baso # (Auto) 0.01 K/mm3 (0.0-2.0) 11/04/17:35 PT 14.6 SECONDS (9.4-12.5) H 11/04/17 22:35 INR 1.27 (0.93-1.08) H 11/04/17 22:35 APTT 30.0 Seconds (25.1-36.5) 11/04/17:35 D-Dimer, Quantitative 660 ng/mL (0-243) H 11/04/17 22:35 pO2 90 mm/Hg (30-55) H 11/04/17 22:35 VBG pH 7.46 (7.32-7.43) H 11/04/17 22:35 VBG pCO2 48.0 (40-60) 11/04/17 22:35 VBG HCO3 34.1 mmol/l (21-28) H 11/04/17 22:35 VBG Total CO2 35.6 mmol.L (22-28) H 11/04/17 22:35 VBG O2 Sat (Calc) 99.4 % (40-65) H 11/04/17 22:35 VBG Base Excess 8.8 mmol/L (0.0-2.0) H 11/04/17 22:35 VBG Potassium 3.9 mmol/L (3.6-5.2) 11/04/17 22:35 Sodium 139.0 mmol/L (132-148) 11/04/17 22:35 Chloride 105.0 mmol/L (98-107) 11/04/17 22:35 Glucose 133 mg/dl (75-110) H 11/04/17 22:35 Lactate 1.7 mmol/L (0.7-2.1) 11/04/17 22:35 FiO2 21.0 % 11/04/17 22:35 Sodium 141 mmol/L (132-148) 11/04/17 22:35 Potassium 3.8 mmol/L (3.6-5.0) 11/04/17 22:35 Chloride 101 mmol/L (98-107) 11/04/17 22:35 Carbon Dioxide 29 mmol/L (21-33) 11/04/17 22:35 Anion Gap 14 (10-20) 11/04/17 22:35 BUN 18 mg/dL (7-21) 11/04/17 22:35 Creatinine 0.7 mg/dl (0.8-1.5) L 11/04/17 22:35 Est GFR ( Amer) > 60 11/04/17 22:35 Est GFR (Non-Af Amer) > 60 11/04/17 22:35 Random Glucose 124 mg/dL (70-110) H 11/04/17 22:35 Calcium 8.7 mg/dL (8.4-10.5) 11/04/17 22:35 Magnesium 1.8 mg/dL (1.7-2.2) 11/04/17 22:35 Total Bilirubin 0.6 mg/dL (0.2-1.3) 11/04/17 22:35 AST 151 U/L (17-59) H D 11/04/17 22:35 ALT 325 U/L (7-56) H 11/04/17 22:35 Alkaline Phosphatase 102 U/L (38-126) 11/04/17 22:35 Lactate Dehydrogenase 423 U/L (333-699) 11/04/17 22:35 Total Creatine Kinase 76 U/L (35-230) 11/04/17 22:35 Troponin I 0.01 ng/mL 11/04/17 22:35 NT-Pro-B Natriuret Pep 81.1 pg/mL (0-450) 11/04/17 22:35 Total Protein 6.8 g/dL (5.8-8.3) 11/04/17 22:35 Albumin 3.6 g/dL (3.0-4.8) 11/04/17 22:35 Globulin 3.2 gm/dL 11/04/17 22:35 Albumin/Globulin Ratio 1.1 (1.1-1.8) 11/04/17 22:35 Venous Blood Potassium 3.9 mmol/L (3.6-5.2) 11/04/17 22:35 Urine Color Yellow (YELLOW) 11/04/17 22:30 Urine Appearance Clear (CLEAR) 11/04/17 22:30 Urine pH 6.0 (4.7-8.0) 11/04/17 22:30 Ur Specific [place] 1.020 (1.005-1.035) 11/04/17 22:30 Urine Protein Negative mg/dL (<30 mg/dL) 11/04/17 22:30 Urine Glucose (UA) Negative mg/dL (NEGATIVE) 11/04/17 22:30 Urine Ketones Trace mg/dL (NEGATIVE) H 11/04/17 22:30 Urine Blood Negative (NEGATIVE) 11/04/17 22:30 Urine Nitrate Negative (NEGATIVE) 11/04/17 22:30 Urine Bilirubin Negative (NEGATIVE) 11/04/17 22:30 Urine Urobilinogen 1.0 E.U./dL (<1 E.U./dL) H 11/04/17 22:30 Ur Leukocyte Esterase Negative Sofi/uL (NEGATIVE) 11/04/17 22:30 Urine Opiates Screen Positive (NEGATIVE) H 11/04/17 22:15 Urine Methadone Screen Negative (NEGATIVE) 11/04/17 22:15 Ur Barbiturates Screen Negative (NEGATIVE) 11/04/17 22:15 Ur Phencyclidine Scrn Negative (NEGATIVE) 11/04/17 22:15 Ur Amphetamines Screen Negative (NEGATIVE) 11/04/17 22:15 U Benzodiazepines Scrn Negative (NEGATIVE) 11/04/17 22:15 U Oth Cocaine Metabols Negative (NEGATIVE) 11/04/17 22:15 U Cannabinoids Screen Positive (NEGATIVE) H 11/04/17 22:15 Influenza Typ A,B (EIA) Negative for flu a/b (NEGATIVE) 11/05/17 10:10 Attending/Attestation - Attestation I have personally seen and examined this patient.: Yes I have fully participated in the care of the patient.: Yes I have reviewed all pertinent clinical information, including history, physical exam and plan: Yes Notes (Text): 11/05/17 18:07 52 year old male with past medical history of IVDA, hepatitis C, and asthma who presented with complaint of fever, chest pain and shortness of breath. He was started on iv antibiotics and echocardiogram was ordered. He was seen by ID. D -dimer was elevated but CT angio was negative for PE. Patient signed out AMA later on during the day. He was counselled on risks of continued substance abuse. Kalina Rudolph MD Hospitalist.
--- NOTE | 2017-11-05 12:58 | CP.PCM.CON ---
History of Present Illness - History of Present Illness History of Present Illness: 52 year old male with PMH of untreated hepatitis C infection, IV drug abuse, asthma came in [place] [facility] complaining of left sided chest pain with some shortness of breath for the past 2 days. He states that the chest pain is worsened with inspiration. He denies fever or chills, no headache or dizziness, no nausea or vomiting, no cough, no rhinorrhea, no sore throat, no abdominal pain, no diarrhea, no dysuria. Infectious Diseases consult is requested to further evaluate and manage. Review of Systems - Review of Systems All systems: reviewed and no additional remarkable complaints except (as per HPI ) Past Patient History - Infectious Disease Hx of Infectious Diseases: None - Past Medical History & Family History Past Medical History?: Yes - Past Social History Smoking Status: Former Smoker - CARDIAC Hx Hypertension: No - PULMONARY Hx Asthma: Yes - NEUROLOGICAL Hx Seizures: No - HEENT Hx HEENT Problems: No - RENAL Hx Chronic Kidney Disease: No - ENDOCRINE/METABOLIC Hx Endocrine Disorders: No - HEMATOLOGICAL/ONCOLOGICAL Hx Blood Disorders: No - INTEGUMENTARY Hx Dermatological Problems: Yes Hx Cellulitis: Yes - MUSCULOSKELETAL/RHEUMATOLOGICAL Hx Falls: No - GASTROINTESTINAL Hx Gastrointestinal Disorders: No - GENITOURINARY/GYNECOLOGICAL Hx Sexually Transmitted Disorders: Yes - PSYCHIATRIC Hx Anxiety: Yes Hx Depression: Yes - SURGICAL HISTORY Other/Comment: R arm cyst removal - ANESTHESIA Hx Anesthesia: Yes Hx Anesthesia Reactions: No Hx Malignant Hyperthermia: No Meds Allergies/Adverse Reactions: Allergies Allergy/AdvReac Type Severity Reaction Status Date / Time No Known Allergies Allergy Verified 11/04/17 22:07 - Medications Medications: Current Medications Acetaminophen (Tylenol 325mg Tab) 650 mg PO Q6H PRN PRN Reason: Fever >100.4 F Aspirin (Ecotrin) 81 mg PO DAILY ARCELIA Clonidine HCl (Catapres) 0.1 mg PO Q4H PRN PRN Reason: symptoms of opioid withdrawal Sodium Chloride (Sodium Chloride 0.9%) 1,000 mls @ 80 mls/hr IV .[id number] [facility] Last Admin: 11/04/17 22:40 Dose: 80 mls/hr Piperacillin Sod/Tazobactam Sod (Zosyn 3.375 In Ns 100ml) 100 mls @ 200 mls/hr IVPB Q6 ARCELIA PRN Reason: Protocol Stop: 11/12/17 11:01 Vancomycin HCl (Vancomycin 1gm) 1 gm in 250 mls @ 167 mls/hr IVPB Q12 ARCELIA PRN Reason: Protocol Vancomycin HCl (Vancomycin 1gm) 1 gm in 250 mls @ 167 mls/hr IVPB STAT STA PRN Reason: Protocol Stop: 11/05/17 08:49 Nitroglycerin (Nitrostat Sl Tab) 0.4 mg SL Q5MIN PRN PRN Reason: chest pain Ondansetron HCl (Zofran Inj) 4 mg IVP Q4H PRN PRN Reason: Nausea/Vomiting Pantoprazole Sodium (Protonix Inj) 40 mg IVP DAILY ARCELIA Physical Exam - Constitutional Appears: Non-toxic, Chronically Ill - Head Exam Head Exam: NORMAL INSPECTION - ENT Exam ENT Exam: Mucous Membranes Moist - Neck Exam Neck exam: Negative for: Meningismus - Respiratory Exam Respiratory Exam: Decreased Breath Sounds - Cardiovascular Exam Cardiovascular Exam: +S1, +S2 - GI/Abdominal Exam GI & Abdominal Exam: Soft. absent: Tenderness - Extremities Exam Additional comments: right elbow with circular area of induration without pus coming out; similar lesion noted on the left chest wall area with tenderness noted on palpation Results - Vital Signs Recent Vital Signs: Last Vital Signs Temp 102 F H 11/04/17 22:40 Pulse 56 L 11/05/17 05:12 Resp 18 11/05/17 06:14 BP 98/57 L 11/05/17 05:12 Pulse Ox 97 11/05/17 05:12 - Labs Result Diagrams: 11/04/17 22:35 11/04/17 22:35 Assessment & Plan - Assessment and Plan (Free Text) Plan: Assessment systemic inflammatory response syndrome, R/O sepsis R/O bacteremia in this patient with IV drug use chest pain etiology to be determined untreated hepatitis C infection IV drug abuse asthma Plan Started the patient on Vancomycin and Zosyn pending blood, urine cx, PCT, CXR Patient may need further work up with 2D echo and CT chest if shortness of breath continues
--- NOTE | 2017-11-05 13:17 | CT ---
PROCEDURE: CT Chest with contrast (Pulmonary Angiogram) HISTORY: cp COMPARISON: None available. TECHNIQUE: Axial computed tomography images were obtained of the chest in the pulmonary arterial phase of enhancement. Coronal and sagittal reformatted images were created and reviewed. Intravenous contrast dose: 100cc Omnipaque 350 Radiation dose: Total exam DLP = 346.49 mGy-cm. This CT exam was performed using one or more of the following dose reduction techniques: Automated exposure control, adjustment of the mA and/or kV according to patient size, and/or use of iterative reconstruction technique. FINDINGS: PULMONARY ARTERIES: Unremarkable. No pulmonary embolism. AORTA: No acute findings. No thoracic aortic aneurysm. LUNGS: Minor passive/dependent type atelectasis both posterior sulci. No nodule, mass or pulmonary consolidation. PLEURAL SPACES: Unremarkable. No effusion or pneumothorax HEART: Heart size upper limits of normal. No significant pericardial effusion. LYMPH NODES: No lymphadenopathy. BONES, CHEST WALL: Multilevel degenerative spondylosis of the thoracic as well as visualized lower cervical and upper lumbar spine. OTHER FINDINGS: Spleen is upper limits of normal in size. IMPRESSION: No evidence of acute central pulmonary embolus. No acute consolidation.
--- NOTE | 2017-11-05 13:45 | CARD ---
APPROVED REPORT EKG Measurement Heart [id number] <Conclusion> Sinus tachycardia Possible Left atrial enlargement Septal infarct, age undetermined Abnormal ECG
--- NOTE | 2017-11-05 15:52 | RAD ---
HISTORY: cp COMPARISON: Comparison chest 09/17/2017 FINDINGS: LUNGS: Poor inspiration with low lung volumes, crowded bronchovascular markings and mild bibasilar atelectasis. PLEURA: No significant pleural effusion identified, no pneumothorax apparent. CARDIOVASCULAR: Normal. OSSEOUS STRUCTURES: Mild multilevel degenerative spondylosis of the thoracic spine VISUALIZED UPPER ABDOMEN: Normal. OTHER FINDINGS: None. IMPRESSION: Poor inspiration with low lung volumes, crowded bronchovascular markings and mild bibasilar atelectasis.
[2017-11-05] MEDS ORDERED: Vancomycin 1gm in NS 250ml 1 GM/250 ML BAG IVPB SCH (20:00)
[2017-11-06] MEDS ORDERED: Vancomycin 1gm in NS 250ml 1 GM/250 ML BAG IVPB SCH (10:00)
== END 2017-11-05 11:33 | disposition left against medical advice (07) ==
LOC: ED 21:56 → ERH 11-05 03:51 → 2RSO 11-05 05:30
PROVIDERS: ADMIT Internal Medicine; ATTEND Internal Medicine
DX: R07.89 Other chest pain (principal); R65.10 Systemic inflammatory response syndrome (SIRS) of non-infectious origin without acute organ dysfunction; F11.10 Opioid abuse, uncomplicated; B19.20 Unspecified viral hepatitis C without hepatic coma; J45.909 Unspecified asthma, uncomplicated; R74.0 Nonspecific elevation of levels of transaminase and lactic acid dehydrogenase [LDH]; R79.1 Abnormal coagulation profile; Z79.82 Long term (current) use of aspirin; F17.210 Nicotine dependence, cigarettes, uncomplicated; F19.10 Other psychoactive substance abuse, uncomplicated
CPT/HCPCS: 71045; 71275; 80053; 80324; 80345; 80346; 80349; 80353; 80358; 80361; 81003; 82550; 82803; 83615; 83735; 83880; 83992; 84484; 85025; 85378; 85610; 85730; 87040; 87804; 93005; 96365; 96367; 96375; 96376; 99285; C9113; G0378; J2543; J7030; Q9967

== ENCOUNTER → 2017-11-14 | Emergency (ER) | payer OTHER ==
[2017-11-14 19:07] VITALS: BMI 22.2
[2017-11-14 19:32] VITALS: BP 132/74; PULSE 86; RESP 18; TEMP 98.1; O2SAT 99
--- NOTE | 2017-11-14 20:42 | ED PDOC ---
Arrival/HPI - General Chief Complaint: Substance Abuse Time Seen by Provider: 11/14/17 19:11 - History of Present Illness Narrative History of Present Illness (Text): 11/14/17 20:39 pt is c/o of chest pain , pt signed ama form [facility], comes back with same complaint, work up negative , pt is exhibiting drug seeking behavior Past Medical History - Provider Review Nursing Documentation Reviewed: Yes - Infectious Disease Hx of Infectious Diseases: None - Cardiac Hx Hypertension: No - Pulmonary Hx Asthma: Yes - Neurological Hx Seizures: No - HEENT Hx HEENT Disorder: No - Renal Hx Renal Disorder: No - Endocrine/Metabolic Hx Endocrine Disorders: No - Hematological/Oncological Hx Blood Disorders: No - Integumentary Hx Dermatological Disorder: Yes Hx Cellulitis: Yes - Musculoskeletal/Rheumatological Hx Musculoskeletal Disorders: No Hx Falls: No - Gastrointestinal Hx Gastrointestinal Disorders: No - Genitourinary/Gynecological Hx Sexually Transmitted Diseases: Yes - Psychiatric Hx Anxiety: Yes Hx Depression: Yes Hx Substance Use: Yes (heroine) - Surgical History Other/Comment: R arm cyst removal - Anesthesia Hx Anesthesia: Yes Hx Anesthesia Reactions: No Hx Malignant Hyperthermia: No Family/Social History - Physician Review Nursing Documentation Reviewed: Yes Family/Social History: No Known Family HX Smoking Status: Current Some Days Smoker Hx Alcohol Use: No Hx Substance Use: Yes (heroine) Substance used: Heroin Allergies/Home Meds Allergies/Adverse Reactions: Allergies No Known Allergies Allergy (Verified 11/09/17 14:51) Home Medications: Home Meds Medication Instructions Recorded Confirmed No Known Home Med 11/14/17 11/14/17 Review of Systems - Review of Systems Constitutional: Normal Eyes: Normal ENT: Normal Respiratory: Normal Cardiovascular: Chest Pain Gastrointestinal: Normal Genitourinary Male: Normal Musculoskeletal: Normal Skin: Normal Neurological: Normal Endocrine: Normal Hemo/Lymphatic: Normal Psychiatric: Normal Physical Exam Vital Signs Reviewed: Yes Vital Signs Temp Pulse Resp BP Pulse Ox 11/14/17 19:26 98.1 F 86 18 132/74 99 Temperature: Afebrile Blood Pressure: Normal Pulse: Regular Respiratory Rate: Normal Appearance: Positive for: Well-Appearing, Non-Toxic, Comfortable Pain Distress: None Mental Status: Positive for: Alert and Oriented X 3 - Systems Exam Head: Present: Atraumatic, Normocephalic Pupils: Present: PERRL Extroacular Muscles: Present: EOMI Conjunctiva: Present: Normal Mouth: Present: Moist Mucous Membranes Neck: Present: Normal Range of Motion Respiratory/Chest: Present: Clear to Auscultation, Good Air Exchange, Tender to Palpation (left chest). No: Respiratory Distress, Accessory Muscle Use Cardiovascular: Present: Regular Rate and Rhythm, Normal S1, S2. No: Murmurs Abdomen: No: Tenderness, Distention, Peritoneal Signs Back: Present: Normal Inspection Upper Extremity: Present: Normal Inspection. No: Cyanosis, Edema Lower Extremity: Present: Normal Inspection. No: Edema Neurological: Present: GCS=15, CN II-XII Intact, Speech Normal Skin: Present: Warm, Dry, Normal Color. No: Rashes Psychiatric: Present: Alert, Oriented x 3, Normal Insight, Normal Concentration Medical Decision Making - Medication Orders Current Medication Orders: Discontinued Medications Acetaminophen (Tylenol 325mg Tab) 650 mg PO STAT STA Stop: 11/14/17 19:51 Last Admin: 11/14/17 20:32 Dose: 650 mg MAR Pain/Vitals Document 11/14/17 20:32 JAMES (Rec: 11/14/17 20:33 [id number]) Pain Reassessment Is This A Pain ReAssessment? Yes Location Pain Location Body Site Back Intensity 4 Pain Behavior Rubbing Site Disposition/Present on Arrival - Present on Arrival Any Indicators Present on Arrival: No History of DVT/PE: No History of Uncontrolled Diabetes: No Urinary Catheter: No History of Decub. Ulcer: No History Surgical Site Infection Following: None - Disposition Have Diagnosis and Disposition been Completed?: Yes Diagnosis: Chest wall pain Disposition: ELOPEMENT - ER ONLY Disposition Time: 20:42 Condition: UNKNOWN Discharge Instructions (ExitCare): Chest Pain (ED)
== END | disposition left against medical advice (07) ==
LOC: ED 19:06
DX: R07.89 Other chest pain (principal)

== ENCOUNTER 2018-02-17 22:15 | Observation (INO) | payer MEDICAID, OTHER ==
[2018-02-17] MEDS ORDERED: Albuterol-Ipratrop 3 mg / 0.5 (3 ml) UD IH STA (22:55)
[2018-02-17] MEDS ORDERED: Sodium Chloride 0.9% 1,000 ML IV SCH (23:00)
--- NOTE | 2018-02-17 23:10 | ED PDOC ---
Arrival/HPI - General Chief Complaint: Shortness Of Breath Time Seen by Provider: 02/17/18 22:20 Historian: Patient - History of Present Illness Narrative History of Present Illness (Text): 02/17/18 23:07 52 year old male, whose past medical history includes IV heroin abuse, Hep C (untreated), and asthma, presents to the emergency department complaining of shortness of breath for the past couple of days associated with cough and productive of yellowish sputum, Patient reports chest discomfort when coughing. Patient admits to smoking. He states he used his inhaler with no relief. Patient denies any fever, chills, nausea, vomiting, diarrhea, urinary symptoms, back pain, neck pain, headache, dizziness, or any other complaints. Time/Duration: Other (couple of days) Symptom Onset: Gradual Symptom Course: Unchanged Activities at Onset: Light Context: Home Past Medical History - Provider Review Nursing Documentation Reviewed: Yes - Infectious Disease Hx of Infectious Diseases: None - Cardiac Hx Cardiac Disorders: No Hx Hypertension: No - Pulmonary Hx Asthma: Yes - Neurological HX Cerebrovascular Accident: No Hx Seizures: No - HEENT Hx HEENT Disorder: No - Renal Hx Renal Disorder: No - Endocrine/Metabolic Hx Endocrine Disorders: No - Hematological/Oncological Hx Cancer: No - Integumentary Hx Dermatological Disorder: Yes Hx Cellulitis: Yes - Musculoskeletal/Rheumatological Hx Musculoskeletal Disorders: No Hx Falls: No - Gastrointestinal Hx Gastrointestinal Disorders: No - Genitourinary/Gynecological Hx Sexually Transmitted Diseases: Yes - Psychiatric Hx Substance Use: Yes - Surgical History Other/Comment: R arm cyst removal - Anesthesia Hx Anesthesia: Yes Hx Anesthesia Reactions: No Hx Malignant Hyperthermia: No Family/Social History - Physician Review Nursing Documentation Reviewed: Yes Family/Social History: No Known Family HX Smoking Status: Heavy Smoker > 10 Cigarettes Daily Hx Alcohol Use: No Hx Substance Use: Yes Substance used: Heroin Allergies/Home Meds Allergies/Adverse Reactions: Allergies No Known Allergies Allergy (Verified 02/17/18 22:40) Home Medications: Home Meds Medication Instructions Recorded Confirmed No Known Home Med 11/14/17 02/17/18 Review of Systems - Physician Review All systems were reviewed & negative as marked: Yes - Review of Systems Constitutional: absent: Fevers, Other (Chills) Respiratory: SOB, Cough, Sputum Cardiovascular: Chest Pain Gastrointestinal: absent: Diarrhea, Nausea, Vomiting Genitourinary Male: absent: Dysuria, Frequency, Hematuria Musculoskeletal: absent: Back Pain, Neck Pain Neurological: absent: Headache, Dizziness Physical Exam Vital Signs Reviewed: Yes Vital Signs Temp Pulse Resp BP Pulse Ox 02/17/18 22:20 99.3 F 94 H 18 113/68 98 Temperature: Afebrile Blood Pressure: Normal Pulse: Regular Respiratory Rate: Normal Appearance: Positive for: Well-Appearing, Non-Toxic, Comfortable Pain Distress: None Mental Status: Positive for: Alert and Oriented X 3 - Systems Exam Head: Present: Atraumatic, Normocephalic Pupils: Present: PERRL Extroacular Muscles: Present: EOMI Conjunctiva: Present: Normal Mouth: Present: Moist Mucous Membranes Neck: Present: Normal Range of Motion Respiratory/Chest: Present: Wheezes (bilaterally ), Rhonchi (bialterally ). No: Respiratory Distress, Accessory Muscle Use Cardiovascular: Present: Regular Rate and Rhythm, Normal S1, S2. No: Murmurs Abdomen: No: Tenderness, Distention, Peritoneal Signs Back: Present: Normal Inspection Upper Extremity: Present: Normal Inspection. No: Cyanosis, Edema Lower Extremity: Present: Normal Inspection. No: Edema Neurological: Present: GCS=15, CN II-XII Intact, Speech Normal Skin: Present: Warm, Dry, Normal Color. No: Rashes Psychiatric: Present: Alert, Oriented x 3, Normal Insight, Normal Concentration Medical Decision Making ED Course and Treatment: 02/17/18 23:02 Impression: 52 year old male presents complaining of shortness of breath for the past couple of days associated with chest discomfort when coughing with productive of yellowish sputum. Plan: -- EKG -- Labs -- Chest X-ray -- IV Fluids, Douneb -- Reassess and disposition Prior Visits: Notes and results from previous visits were reviewed. Patient was last seen in the emergency department on 11/13/17 presents complaining of chest pain. Patient was admitted. Progress Notes: EKG shows NSR at 100 BPM with non-specific ST/T wave changes. Interpreted by me. 02/18/18 00:30 CXR Impression: As read by me, slight increase of interstitial markings. 02/18/18 00:50 Case discussed with medical office worker and Dr. Landrum who is aware and agrees with the plan. Accepts patient into hospitalist service - Lab Interpretations I have reviewed the lab results: Yes - RAD Interpretation Radiology Orders: 02/17/18 22:54 CHEST PORTABLE [RAD] Stat - EKG Interpretation Interpreted by ED Physician: Yes Type: 12 lead EKG - Medication Orders Current Medication Orders: Sodium Chloride (Sodium Chloride 0.9%) 1,000 mls @ 100 mls/hr IV .Q10H ARCELIA Discontinued Medications Albuterol/Ipratropium (Duoneb 3 Mg/0.5 Mg (3 Ml) Ud) 3 ml IH ONCE STA Stop: 02/17/18 22:56 - Scribe Statement The provider has reviewed the documentation as recorded by the Clara Braun Provider Scribe Attestation: All medical record entries made by the Carieibkg were at my direction and personally dictated by me. I have reviewed the chart and agree that the record accurately reflects my personal performance of the history, physical exam, medical decision making, and the department course for this patient. I have also personally directed, reviewed, and agree with the discharge instructions and disposition. Disposition/Present on Arrival - Present on Arrival Any Indicators Present on Arrival: No History of DVT/PE: No History of Uncontrolled Diabetes: No Urinary Catheter: No History of Decub. Ulcer: No History Surgical Site Infection Following: None - Disposition Have Diagnosis and Disposition been Completed?: Yes Diagnosis: Asthma exacerbation, Bronchopneumonia Disposition: HOSPITALIZED Disposition Time: 01:14 Condition: STABLE Referrals: FAMILY PROVIDER,NO [Primary Care Provider] - Follow up with primary Forms: [employer] ([place])
[2018-02-17 23:29] LABS: HEMOGLOBIN 11.3 g/dL (14.0-18.0); MEAN CELL VOLUME 90.2 fl (80.0-105.0); MEAN CORPUSCULAR HEMOGLOBIN 30.1 pg (25.0-35.0); MEAN CORPUSCULAR HGB CONC 33.3 g/dl (31.0-37.0); MEAN PLATELET VOLUME 9.2 fl (7.0-11.0); RBC 3.76 10^6/uL (3.5-6.1); RED CELL DISTRIBUTION WIDTH 14.1 % (11.5-14.5); WHITE BLOOD COUNT 9.5 10^3/ul (4.5-11.0)
[2018-02-17 23:40] LABS: ALBUMIN 3.5 g/dL (3.0-4.8); ALT/SGPT 136 U/L (7-56); AST/SGOT 82 U/L (17-59); BLOOD UREA NITROGEN 15 mg/dL (7-21); CALCIUM 8.5 mg/dL (8.4-10.5); GFR NON-AFRICAN AMERICAN > 60
[2018-02-18] MEDS ORDERED: Albuterol-Ipratrop 3 mg / 0.5 (3 ml) UD IH STA (00:16)
[2018-02-18] MEDS ORDERED: Azithromycin 500MG/NS 250ml 500 MG/250 ML BAG IV STA (01:11)
[2018-02-18] MEDS ORDERED: cefTRIAXone 1 gm 1 GM/100 ML BAG IV STA (01:11)
[2018-02-18 01:13] LABS: TROPONIN I < 0.01 ng/mL
--- NOTE | 2018-02-18 01:32 | CP.PCM.HP ---
<Prince Reyes - Last Filed: 02/18/18 05:36> History of Present Illness - History of Present Illness History of Present Illness: Prince Reyes PGY1, History and Physical for Dr Goetz Pt is a 52 yo male, with a PMH which includes IV heroin abuse, Hep C (untreated), and asthma who presents to the ED complaining of SOB, and a productive cough with yellow sputum, but no blood, for the past couple of days. Pt states he was treated at [facility] [place] [facility] and discharged on Monday for the same symptoms. He states he was discharged with a prescription for steroids (which he did not fill) but did not receive any antibiotics. Pt reports chest discomfort when coughing. Patient admits to smoking. He states he used his inhaler many times with no relief. Patient denies any fever, chills, nausea, diarrhea, urinary symptoms, back pain, neck pain, headache, or dizziness. A 12 point ROS was obtained and added to the HPI where appropriate. PMH: Hep C untreated, IV heroin, asthma PSH: Right arm abscess drainage at [facility] in May SH: denies alcohol, Tobacco 20 pack years, Heroin use FH: Mother 69, "heart problems". Father 82, unsure Allergies: NKDA Home Meds: Denies PMD: denies Present on Admission - Present on Admission Any Indicators Present on Admission: No Review of Systems - Review of Systems Review of Systems: a 12 point ROS was obtained and added to the HPI where appropriate Past Patient History - Infectious Disease Hx of Infectious Diseases: None - Past Medical History & Family History Past Medical History?: Yes - Past Social History Smoking Status: Heavy Smoker > 10 Cigarettes Daily - CARDIAC Hx Cardiac Disorders: No Hx Hypertension: No - PULMONARY Hx Asthma: Yes - NEUROLOGICAL HX Cerebrovascular Accident: No Hx Seizures: No - HEENT Hx HEENT Problems: No - RENAL Hx Chronic Kidney Disease: No - ENDOCRINE/METABOLIC Hx Endocrine Disorders: No - HEMATOLOGICAL/ONCOLOGICAL Hx Cancer: No - INTEGUMENTARY Hx Dermatological Problems: Yes Hx Cellulitis: Yes - MUSCULOSKELETAL/RHEUMATOLOGICAL Hx Musculoskeletal Disorders: No Hx Falls: No - GASTROINTESTINAL Hx Gastrointestinal Disorders: No - GENITOURINARY/GYNECOLOGICAL Hx Sexually Transmitted Disorders: Yes - PSYCHIATRIC Hx Substance Use: Yes - SURGICAL HISTORY Other/Comment: R arm cyst removal - ANESTHESIA Hx Anesthesia: Yes Hx Anesthesia Reactions: No Hx Malignant Hyperthermia: No Meds Allergies/Adverse Reactions: Allergies Allergy/AdvReac Type Severity Reaction Status Date / Time No Known Allergies Allergy Verified 02/17/18 22:40 Physical Exam - Constitutional Appears: No Acute Distress - Head Exam Head Exam: ATRAUMATIC, NORMOCEPHALIC - ENT Exam ENT Exam: Mucous Membranes Moist - Respiratory Exam Respiratory Exam: Chest Wall Tenderness, Rhonchi, NORMAL BREATHING PATTERN - Cardiovascular Exam Cardiovascular Exam: RRR, +S1, +S2 - GI/Abdominal Exam GI & Abdominal Exam: Normal Bowel Sounds, Soft - Neurological Exam Neurological exam: Alert, Oriented x3 - Psychiatric Exam Psychiatric exam: Normal Affect, Normal Mood - Skin Skin Exam: Dry, Normal Color, Warm Results - Vital Signs Recent Vital Signs: Last Vital Signs Temp 99.3 F 02/17/18 22:20 Pulse 94 H 02/17/18 22:20 Resp 18 02/17/18 22:20 BP 113/68 02/17/18 22:20 Pulse Ox 98 02/17/18 22:20 - Labs Result Diagrams: 02/17/18 23:20 02/17/18 23:20 Labs: Laboratory Results - last 24 hr 02/17/18 02/17/18 23:20 23:20 WBC 9.5 D RBC 3.76 Hgb 11.3 L Hct 33.9 L MCV 90.2 MCH 30.1 MCHC 33.3 RDW 14.1 Plt Count 202 MPV 9.2 Sodium 138 Potassium 4.3 Chloride 102 Carbon Dioxide 30 Anion Gap 11 BUN 15 Creatinine 0.6 L Est GFR ( Amer) > 60 Est GFR (Non-Af Amer) > 60 Random Glucose 99 Calcium 8.5 Total Bilirubin 0.4 AST 82 H D ALT 136 H Alkaline Phosphatase 88 Lactate Dehydrogenase 424 Total Creatine Kinase 178 Troponin I < 0.01 Total Protein 7.1 Albumin 3.5 Globulin 3.6 Albumin/Globulin Ratio 1.0 L Assessment & Plan - Assessment and Plan (Free Text) Assessment: Pt is a 52 yo male, with a PMH which includes IV heroin abuse, Hep C (untreated), and asthma who presents to the ED complaining of SOB, and a productive cough with yellow sputum, but no blood, for the past couple of days. Plan: Asthma Exacerbation, ? COPD, most likely secondary to bronchitis or walking pneumonia - QTc prolongation - likely bronchitis, course bronchial lung sounds - pt denies ever being intubated - start duonebs Q4 ARCELIA - steroids IV 40 q8 - follow up procal - urine culture - blood culture - sputum culture - start rocephin 1g/ daily - start doxy 100mg q12 IV Heroin Use - last used today - cessation encouraged - follow up UDS History of Hepatitis C - continue to monitor, unable to treat because pt is currently using heroin Tobacco Use - 20 pack years - nicotine patch - counseled about cessation Transaminitis - most likely secondary to untreated Hep C infection - [id number] , [id number] - continue to trend LFT - avoid hepatotoxic drugs - no plan to get hepatitis panel, or abdominal US for now because pt is asymptomatic Pt seen, examined, assessemtn and plan discussed with Dr Bishnu Reyes PGY1 - Date & Time Date: 02/18/18 Time: 01:45 <Jane Goetz - Last Filed: 02/18/18 06:46> Results - Vital Signs Recent Vital Signs: Last Vital Signs Temp 98.1 F 02/18/18 03:25 Pulse 66 02/18/18 03:25 Resp 20 02/18/18 03:25 BP 114/77 02/18/18 03:25 Pulse Ox 96 02/18/18 03:25 - Labs Result Diagrams: 02/17/18 23:20 02/17/18 23:20 Labs: Laboratory Results - last 24 hr 02/17/18 02/17/18 23:20 23:20 WBC 9.5 D RBC 3.76 Hgb 11.3 L Hct 33.9 L MCV 90.2 MCH 30.1 MCHC 33.3 RDW 14.1 Plt Count 202 MPV 9.2 Sodium 138 Potassium 4.3 Chloride 102 Carbon Dioxide 30 Anion Gap 11 BUN 15 Creatinine 0.6 L Est GFR ( Amer) > 60 Est GFR (Non-Af Amer) > 60 Random Glucose 99 Calcium 8.5 Total Bilirubin 0.4 AST 82 H D ALT 136 H Alkaline Phosphatase 88 Lactate Dehydrogenase 424 Total Creatine Kinase 178 Troponin I < 0.01 Total Protein 7.1 Albumin 3.5 Globulin 3.6 Albumin/Globulin Ratio 1.0 L Attending/Attestation - Attestation I have personally seen and examined this patient.: Yes I have fully participated in the care of the patient.: Yes I have reviewed all pertinent clinical information: Yes Notes (Text): 02/18/18 06:46 Stop milton.
[2018-02-18 02:08] VITALS: RESP 20
[2018-02-18 03:20] VITALS: BMI 24.7
[2018-02-18 03:25] VITALS: PULSE 66
[2018-02-18] MEDS ORDERED: MethylPREDNISolone 40 mg Vial IVP SCH (06:00)
[2018-02-18 06:58] LABS: BARBITURATES, UR NEGATIVE (NEGATIVE); BENZODIAZEPINES, UR NEGATIVE (NEGATIVE); OPIATES, UR POSITIVE (NEGATIVE); PHENCYCLIDINE, UR NEGATIVE (NEGATIVE)
[2018-02-18] MEDS ORDERED: Budesonide 0.5 mg/2 ml Inhal Susp UD IH SCH (08:00)
[2018-02-18] MEDS ORDERED: Arformoterol 15 mcg/2 ml Inh Sol IH SCH (08:00)
[2018-02-18] MEDS: Albuterol-Ipratrop 3 mg / 0.5 (3 ml) UD IH SCH ×2 (08:08→11:51)
[2018-02-18 08:38] VITALS: BP 100/69; TEMP 98.4; O2SAT 95
[2018-02-18] MEDS ORDERED: Enoxaparin 40 mg Syringe SC SCH (10:00)
[2018-02-18] MEDS ORDERED: cefTRIAXone 1 gm 1 GM/100 ML BAG IVPB SCH (10:00)
--- NOTE | 2018-02-18 10:29 | RAD ---
Date of service: 02/17/2018 HISTORY: sob COMPARISON: 11/04/2017 FINDINGS: LUNGS: No active pulmonary disease. PLEURA: No significant pleural effusion identified, no pneumothorax apparent. CARDIOVASCULAR: Normal. OSSEOUS STRUCTURES: No significant abnormalities. VISUALIZED UPPER ABDOMEN: Normal. OTHER FINDINGS: None. IMPRESSION: No active disease.
--- NOTE | 2018-02-18 13:02 | CARD ---
APPROVED REPORT Date of service: 02/17/2018 EKG Measurement Heart [id number] <Conclusion> Normal sinus rhythm Minimal voltage criteria for LVH, may be normal variant Borderline ECG
--- NOTE | 2018-02-18 14:44 | CP.PCM.DIS ---
<Tai Mcdermott - Last Filed: 02/18/18 15:57> Provider - Provider Date of Admission: 02/18/18 01:02 Attending physician: Brenda Reed MD Primary care physician: NO FAMILY PROVIDER Time Spent in preparation of Discharge (in minutes): 45 Diagnosis - Discharge Diagnosis (1) Asthma exacerbation Status: Acute Priority: Medium (2) Elevated LFTs Status: Acute Priority: Medium (3) Hepatitis C Status: Chronic Priority: High (4) Drug abuse Status: Chronic Priority: Medium (5) Tobacco abuse Status: Chronic Priority: Medium Hospital Course - Lab Results Lab Results: Most Recent Lab Values WBC 9.5 10^3/ul (4.5-11.0) D 02/17/18 23:20 RBC 3.76 10^6/uL (3.5-6.1) 02/17/18 23:20 Hgb 11.3 g/dL (14.0-18.0) L 02/17/18 23:20 Hct 33.9 % (42.0-52.0) L 02/17/18 23:20 MCV 90.2 fl (80.0-105.0) 02/17/18 23:20 MCH 30.1 pg (25.0-35.0) 02/17/18 23:20 MCHC 33.3 g/dl (31.0-37.0) 02/17/18 23:20 RDW 14.1 % (11.5-14.5) 02/17/18 23:20 Plt Count 202 10^3/uL (120.0-450.0) 02/17/18 23:20 MPV 9.2 fl (7.0-11.0) 02/17/18 23:20 Sodium 138 mmol/L (132-148) 02/17/18 23:20 Potassium 4.3 mmol/L (3.6-5.0) 02/17/18 23:20 Chloride 102 mmol/L (98-107) 02/17/18 23:20 Carbon Dioxide 30 mmol/L (21-33) 02/17/18 23:20 Anion Gap 11 (10-20) 02/17/18 23:20 BUN 15 mg/dL (7-21) 02/17/18 23:20 Creatinine 0.6 mg/dl (0.8-1.5) L 02/17/18 23:20 Est GFR ( Amer) > 60 02/17/18 23:20 Est GFR (Non-Af Amer) > 60 02/17/18 23:20 Random Glucose 99 mg/dL (70-110) 02/17/18 23:20 Calcium 8.5 mg/dL (8.4-10.5) 02/17/18 23:20 Total Bilirubin 0.4 mg/dL (0.2-1.3) 02/17/18 23:20 AST 82 U/L (17-59) H D 02/17/18 23:20 ALT 136 U/L (7-56) H 02/17/18 23:20 Alkaline Phosphatase 88 U/L (38-126) 02/17/18 23:20 Lactate Dehydrogenase 424 U/L (333-699) 02/17/18 23:20 Total Creatine Kinase 178 U/L (35-230) 02/17/18 23:20 Troponin I < 0.01 ng/mL 02/17/18 23:20 Total Protein 7.1 g/dL (5.8-8.3) 02/17/18 23:20 Albumin 3.5 g/dL (3.0-4.8) 02/17/18 23:20 Globulin 3.6 gm/dL 02/17/18 23:20 Albumin/Globulin Ratio 1.0 (1.1-1.8) L 02/17/18 23:20 Urine Opiates Screen Positive (NEGATIVE) H 02/18/18 05:30 Urine Methadone Screen Negative (NEGATIVE) 02/18/18 05:30 Ur Barbiturates Screen Negative (NEGATIVE) 02/18/18 05:30 Ur Phencyclidine Scrn Negative (NEGATIVE) 02/18/18 05:30 Ur Amphetamines Screen Negative (NEGATIVE) 02/18/18 05:30 U Benzodiazepines Scrn Negative (NEGATIVE) 02/18/18 05:30 U Oth Cocaine Metabols Negative (NEGATIVE) 02/18/18 05:30 U Cannabinoids Screen Negative (NEGATIVE) 02/18/18 05:30 - Hospital Course Hospital Course: Patient is a 52 year old male with a past medical history of IV heroin abuse, Hep C (untreated), and asthma who was admitted for evaluation and treatment of shortness of breath and productive cough with yellow sputum. Patient underwent chest xray which revealed no active disease. Patient EKG revealed normal sinus rhythm, HR 100bpms, and QTc of 454ms. Patient was treated with ceftriaxone, rocephin, and duonebs in the emergency department. Patient eloped prior to day time primary team being able to evaluate patient. Discharge Exam - Additional Findings Additional findings: Unable to perform physical examination as patient eloped prior to being evaluated. Discharge Plan - Follow Up Plan Condition: STABLE Disposition: AGAINST MEDICAL ADVICE Referrals: FAMILY PROVIDER,NO [Primary Care Provider] - <Brenda Reed - Last Filed: 02/18/18 16:39> Provider - Provider Date of Admission: 02/18/18 01:02 Attending physician: Brenda Reed MD Primary care physician: ROMA FAMILY PROVIDER Time Spent in preparation of Discharge (in minutes): 25 Hospital Course - Lab Results Lab Results: Most Recent Lab Values WBC 9.5 10^3/ul (4.5-11.0) D 02/17/18 23:20 RBC 3.76 10^6/uL (3.5-6.1) 02/17/18 23:20 Hgb 11.3 g/dL (14.0-18.0) L 02/17/18 23:20 Hct 33.9 % (42.0-52.0) L 02/17/18 23:20 MCV 90.2 fl (80.0-105.0) 02/17/18 23:20 MCH 30.1 pg (25.0-35.0) 02/17/18 23:20 MCHC 33.3 g/dl (31.0-37.0) 02/17/18 23:20 RDW 14.1 % (11.5-14.5) 02/17/18 23:20 Plt Count 202 10^3/uL (120.0-450.0) 02/17/18 23:20 MPV 9.2 fl (7.0-11.0) 02/17/18 23:20 Sodium 138 mmol/L (132-148) 02/17/18 23:20 Potassium 4.3 mmol/L (3.6-5.0) 02/17/18 23:20 Chloride 102 mmol/L (98-107) 02/17/18 23:20 Carbon Dioxide 30 mmol/L (21-33) 02/17/18 23:20 Anion Gap 11 (10-20) 02/17/18 23:20 BUN 15 mg/dL (7-21) 02/17/18 23:20 Creatinine 0.6 mg/dl (0.8-1.5) L 02/17/18 23:20 Est GFR ( Amer) > 60 02/17/18 23:20 Est GFR (Non-Af Amer) > 60 02/17/18 23:20 Random Glucose 99 mg/dL (70-110) 02/17/18 23:20 Calcium 8.5 mg/dL (8.4-10.5) 02/17/18 23:20 Total Bilirubin 0.4 mg/dL (0.2-1.3) 02/17/18 23:20 AST 82 U/L (17-59) H D 02/17/18 23:20 ALT 136 U/L (7-56) H 02/17/18 23:20 Alkaline Phosphatase 88 U/L (38-126) 02/17/18 23:20 Lactate Dehydrogenase 424 U/L (333-699) 02/17/18 23:20 Total Creatine Kinase 178 U/L (35-230) 02/17/18 23:20 Troponin I < 0.01 ng/mL 02/17/18 23:20 Total Protein 7.1 g/dL (5.8-8.3) 02/17/18 23:20 Albumin 3.5 g/dL (3.0-4.8) 02/17/18 23:20 Globulin 3.6 gm/dL 02/17/18 23:20 Albumin/Globulin Ratio 1.0 (1.1-1.8) L 02/17/18 23:20 Urine Opiates Screen Positive (NEGATIVE) H 02/18/18 05:30 Urine Methadone Screen Negative (NEGATIVE) 02/18/18 05:30 Ur Barbiturates Screen Negative (NEGATIVE) 02/18/18 05:30 Ur Phencyclidine Scrn Negative (NEGATIVE) 02/18/18 05:30 Ur Amphetamines Screen Negative (NEGATIVE) 02/18/18 05:30 U Benzodiazepines Scrn Negative (NEGATIVE) 02/18/18 05:30 U Oth Cocaine Metabols Negative (NEGATIVE) 10/07/18 05:30 U Cannabinoids Screen Negative (NEGATIVE) 02/18/18 05:30 Attending/Attestation - Attestation I have personally seen and examined this patient.: No I have fully participated in the care of the patient.: Yes I have reviewed all pertinent clinical information, including history, physical exam and plan: Yes
== END 2018-02-18 14:04 | disposition left against medical advice (07) ==
LOC: ED 22:15 → ERH 02-18 01:02 → 3RSO 02-18 03:09
PROVIDERS: ADMIT Internal Medicine; ATTEND Internal Medicine
DX: J45.901 Unspecified asthma with (acute) exacerbation (principal); B19.20 Unspecified viral hepatitis C without hepatic coma; F11.10 Opioid abuse, uncomplicated; F17.200 Nicotine dependence, unspecified, uncomplicated; R79.89 Other specified abnormal findings of blood chemistry
CPT/HCPCS: 71045; 80053; 80324; 80345; 80346; 80349; 80353; 80358; 80361; 82550; 83615; 83992; 84484; 85027; 87086; 93005; 94640; 99284; G0378; J2920; J7030